=== PATIENT | male | born 1945 | race Hispanic/Latino ===

== ENCOUNTER 2018-05-14 10:39 | Outpatient (CLI) | payer MEDICARE ==
[2018-05-14 12:28] LABS: #Eosinphils 0.1 thou/uL (0.0-0.7); #Lymphocytes 1.4 thou/uL (1.20-3.40); #Monocytes 0.5 thou/uL (0.11-0.59); #Neutrophils 5.8 thou/uL (1.40-6.50); %Eosinophils 1.5 % (0.0-10.0); %Lymphocytes 17.6 % (21.0-51.0); %Monocytes 6.9 % (0.0-10.0); %Neutrophils 73.9 % (42.0-75.0); Hemoglobin 11.8 g/dL (14.0-18.0); Mean Corpuscular HGB CONC 34.8 g/dL (32.0-36.0); Mean Corpuscular Hemoglobin 35.2 pg (27.0-31.0); Mean Platelet Volume 8.3 fL (7.4-10.4); Platelet Count 251 thou/uL (130-400); RBC Distribution Width 11.9 % (11.5-14.5); Red Blood Cell (RBC) Count 3.36 mill/uL (4.70-6.10); White Blood Cell (WBC) Count 7.8 thou/uL (4.8-10.8)
[2018-05-14 12:35] LABS: Prothrombin Time 13.3 SEC (12.0-14.7)
[2018-05-14 12:36] LABS: PTT 35.4 SEC (22.9-36.1)
[2018-05-14 12:51] LABS: ALT (SGPT) 9 U/L (8-55); AST (SGOT) 8 U/L (5-34); Albumin 3.9 g/dL (3.4-4.8); Alkaline Phosphatase 98 U/L (40-150); Anion Gap 16 mmol/L (10-20); BUN (Urea Nitrogen) 53 mg/dL (8.4-25.7); Bilirubin, Total 0.4 mg/dL (0.2-1.2); Calc. Creatinine Clearance 0 mL/min (70-130); Calcium 9.8 mg/dL (7.8-10.44); Carbon Dioxide 26 mmol/L (23-31); Chloride 99 mmol/L (98-107); Estimated GFR-MDRD 6; Globulin 3.2 g/dL (2.4-3.5); Glucose 267 mg/dL (83-110); Potassium 4.2 mmol/L (3.5-5.1); Protein, Total 7.1 g/dL (5.8-8.1); Sodium 137 mmol/L (136-145)
== END 2018-05-14 10:40 | disposition home or self-care (01) ==
LOC: LABBT 10:39
PROVIDERS: ATTEND Internal Medicine Cardiovascular Disease
DX: Z01.812 Encounter for preprocedural laboratory examination (principal); R94.39 Abnormal result of other cardiovascular function study
CPT/HCPCS: 80053; 85025; 85610; 85730

== ENCOUNTER 2018-05-17 06:46 | Day surgery (SDC) | payer MEDICARE ==
[2018-05-14 10:58] VITALS: BMI 32.0
[2018-05-17 08:34] LABS: Cardiac Risk 2.3 (Less than 4.5)
[2018-05-17] MEDS ORDERED: Lidocaine 1% (PF) 30 ML VIAL ONE ×2 (09:35)
[2018-05-17] MEDS ORDERED: Iopamidol 370 76% 100 ML VIAL ONE (09:46)
[2018-05-17] MEDS ORDERED: Fentanyl 100 MCG/2 ML VIAL ONE (11:06)
[2018-05-17] MEDS ORDERED: Midazolam HCl 2 mg/2 ml Vial ONE (11:06)
[2018-05-17] MEDS ORDERED: hydrALAZINE 20 MG/ML VIAL ONE (11:26)
== END 2018-05-17 15:30 | disposition home or self-care (01) ==
LOC: CCL 06:46
PROVIDERS: ATTEND Internal Medicine Cardiovascular Disease
PROC: 4A023N7 Measurement of Cardiac Sampling and Pressure, Left Heart, Percutaneous Approach (ICD-10-PCS; principal; 2018-05-17)
PROC: B2111ZZ Fluoroscopy of Multiple Coronary Arteries using Low Osmolar Contrast (ICD-10-PCS; 2018-05-17)
DX: R94.39 Abnormal result of other cardiovascular function study (principal); R06.02 Shortness of breath; I12.0 Hypertensive chronic kidney disease with stage 5 chronic kidney disease or end stage renal disease; E11.22 Type 2 diabetes mellitus with diabetic chronic kidney disease; N18.6 End stage renal disease; Z86.73 Personal history of transient ischemic attack (TIA), and cerebral infarction without residual deficits; Z79.4 Long term (current) use of insulin; Z79.899 Other long term (current) drug therapy; Z99.2 Dependence on renal dialysis
CPT/HCPCS: 36415; 80061; 93458; 99152; C1769; J0360; J1644; J2001; J2250; J3010

== ENCOUNTER 2018-05-21 11:23 | Observation (INO) | payer MEDICARE ==
[2018-05-21 12:06] LABS: #Eosinphils 0.2 thou/uL (0.0-0.7); #Lymphocytes 0.9 thou/uL (1.20-3.40); #Monocytes 0.5 thou/uL (0.11-0.59); #Neutrophils 4.8 thou/uL (1.40-6.50); %Basophils 0.2 % (0.0-1.0); %Eosinophils 3.2 % (0.0-10.0); %Lymphocytes 14.2 % (21.0-51.0); %Monocytes 7.1 % (0.0-10.0); %Neutrophils 75.3 % (42.0-75.0); Hemoglobin 9.9 g/dL (14.0-18.0); Mean Corpuscular HGB CONC 34.3 g/dL (32.0-36.0); Mean Corpuscular Hemoglobin 34.9 pg (27.0-31.0); Platelet Count 229 thou/uL (130-400); RBC Distribution Width 11.9 % (11.5-14.5); Red Blood Cell (RBC) Count 2.83 mill/uL (4.70-6.10); White Blood Cell (WBC) Count 6.4 thou/uL (4.8-10.8)
[2018-05-21 12:21] LABS: ALT (SGPT) Less than 7 U/L (8-55); AST (SGOT) 11 U/L (5-34); Albumin 3.5 g/dL (3.4-4.8); Alkaline Phosphatase 78 U/L (40-150); Anion Gap 16 mmol/L (10-20); BUN (Urea Nitrogen) 65 mg/dL (8.4-25.7); Bilirubin, Total 0.3 mg/dL (0.2-1.2); Calc. Creatinine Clearance 0 mL/min (70-130); Calcium 8.8 mg/dL (7.8-10.44); Carbon Dioxide 21 mmol/L (23-31); Chloride 105 mmol/L (98-107); Estimated GFR-MDRD 5; Globulin 2.9 g/dL (2.4-3.5); Glucose 238 mg/dL (83-110); Potassium 4.7 mmol/L (3.5-5.1); Protein, Total 6.4 g/dL (5.8-8.1); Sodium 137 mmol/L (136-145)
[2018-05-21 13:49] LABS: HBSAg Index 0.19 S/CO (0-0.99); Hep B Surf Ag Non-Reactive S/CO (NonReactive)
[2018-05-21 17:36] VITALS: BMI 32.6
[2018-05-21] MEDS ORDERED: HumaLOG 300 UNITS/3 ML VIAL SC PRN (18:16)
[2018-05-21] MEDS ORDERED: Dextrose 5% in Water 1,000 ML IV PRN (18:16)
[2018-05-21] MEDS ORDERED: Dextrose 50% Abboject 50 ML SYRINGE SLOW IVP PRN (18:16)
[2018-05-21] MEDS ORDERED: Acetaminophen 500 MG TAB PO PRN (18:18)
[2018-05-21] MEDS ORDERED: Enoxaparin Sodium 30 MG/0.3 ML SYRINGE SC SCH (21:00)
[2018-05-21] MEDS: Cephalexin 250 MG CAP PO SCH (21:38)
--- NOTE | 2018-05-22 03:04 | HP ---
The patient's PCP is myself, Dr. Micha Morales. CHIEF COMPLAINT: Fatigue. HISTORY OF PRESENT ILLNESS: The patient states that he has missed nearly a week of dialysis. He has missed the last Sunday, last Sunday and this Sunday. He reports that he had a cardiac catheterization outside of [facility]. He gets a lot of his care still from the [facility] and he missed his dialysis today. However, speaking with family members at bedside including great niece and cousin I believe, they report that he has showed more and more disdaining for dialysis and is possible skipping dialysis because he does not want to continue. However, he refuses to have code status, living will, or advance directive talks with the great niece. The patient still wants to be full code at bedside today. He has no acute complaints other than redness and warmth to the left AV fistula access and the arm. The patient has been followed by Dr. Bolanos, Nephrology and received 3 hours of dialysis today. He reports that the patient's dialysis center will be closed and was requested for observation and admission to continue dialysis on schedule and catch the patient up. 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 The patient is followed by Dr. Bolanos, Nephrology and Dr. Stafford of Urology, and ancillary [facility] physicians. The patient had a left arm AV fistula placed by Dr. Marr on 08/29/2016. The patient is status post appendectomy and tonsillectomy. HOME MEDICATIONS: Listed include, 1. Diltiazem 180 mg extended release once daily. 2. Split-Mix 70/30, 40 units b.i.d. prior to meal. 3. Sliding scale insulin is not currently used. SOCIAL HISTORY: The patient is a former smoker, currently quit. Does not have a spouse or children, currently living by self. REVIEW OF SYSTEMS: The patient denies fevers or chills, positive fatigue, mild weight gain with fluid retention. No chest pain, no shortness of breath, no wheezes, no cough. No abdominal pain. No abdominal distension. No diarrhea, no constipation. No nausea, no vomiting. No headaches. No syncopal episodes. No confusion. Positive redness to arm, possible rash over the AV fistula site, soreness to groin where catheterization was performed last Sunday. The patient denies overt bruising. On review of vital signs, on arrival to the floor, temperature of 97.6, pulse of 77, respiratory rate of 20, oxygen saturation of 100% on room air, blood pressure of 142/68. LABORATORY DATA: Laboratory work includes white blood cell count of 6.4, hemoglobin of 9.9, platelet count of 229, neutrophils of 75%, MCV of 102, sed rate of 54, CRP elevated at 2, serum albumin of 3.5, ALT of less than 7, AST of 11, calcium of 8.8, glucose of 238, creatinine of 11.25, BUN of 65, CO2 of 21, chloride of 105, potassium of 4.7, sodium of 137. Serology, hepatitis B surface antigen is nonreactive. PHYSICAL EXAMINATION: GENERAL: The patient is alert and oriented, in no acute distress. HEENT: Head is normocephalic, atraumatic. Extraocular movements are intact. Sclerae white. Oral mucosa is moist. NECK: Supple. No goiter present. HEART: Slightly tachycardic. Slight systolic murmur is auscultated. No rubs or wheezes. LUNGS: Bilateral clear otherwise to auscultation. ABDOMEN: Soft, nontender, positive bowel sounds throughout. NEUROLOGIC: The patient is alert and oriented x3. No focal deficits. Speech is normal. Right AV fistula has positive thrill and bruits; however, is somewhat erythematous over AC fossa with pallor and mild induration without fluctuance or exudates. ASSESSMENT AND PLAN: Endstage renal disease on hemodialysis, diastolic congestive heart failure, diabetes type 2 with retinopathy, anemia of chronic disease with possible element of B vitamin deficiency. Last echo reviewed, 2017, ejection fraction 60% to 65%, grade 1 diastolic dysfunction under the purview of Dr. Zaman. We will follow up on blood cultures once available, may cover the patient with Keflex given elevated CRP and physical findings of possible _graphitis_ until no known bacteremia is present. We will continue the patient's 70/30 Split-Mix b.i.d. with sliding scale insulin checks with likelihood for the patient to undergo dialysis again tomorrow and return to standard dialysis schedule; however, we will default Nephrology consult to Dr. Bolanos, I believe Dr. Wisdom is covering for him this evening. We will attempt to have further discussions about the patient 's advance directives and code status. Per family's indication, he may be ready to talk about end of life care. However, at this point, the patient overtly states he is full code and wants to continue with dialysis. Continuing the patient's Cardizem, we will cover for deep vein thrombosis prophylaxis. Job ID: [id number] MTDD
[2018-05-22 04:08] LABS: #Eosinphils 0.2 thou/uL (0.0-0.7); #Lymphocytes 1.2 thou/uL (1.20-3.40); #Monocytes 0.7 thou/uL (0.11-0.59); #Neutrophils 4.7 thou/uL (1.40-6.50); %Basophils 0.3 % (0.0-1.0); %Eosinophils 3.5 % (0.0-10.0); %Lymphocytes 17.1 % (21.0-51.0); %Monocytes 9.6 % (0.0-10.0); %Neutrophils 69.5 % (42.0-75.0); Hemoglobin 9.9 g/dL (14.0-18.0); Mean Corpuscular HGB CONC 34.5 g/dL (32.0-36.0); Mean Corpuscular Hemoglobin 34.7 pg (27.0-31.0); Mean Platelet Volume 7.9 fL (7.4-10.4); Platelet Count 222 thou/uL (130-400); RBC Distribution Width 11.9 % (11.5-14.5); Red Blood Cell (RBC) Count 2.86 mill/uL (4.70-6.10); White Blood Cell (WBC) Count 6.8 thou/uL (4.8-10.8)
[2018-05-22 04:29] LABS: ALT (SGPT) Less than 7 U/L (8-55); AST (SGOT) 10 U/L (5-34); Albumin 3.5 g/dL (3.4-4.8); Alkaline Phosphatase 79 U/L (40-150); Anion Gap 14 mmol/L (10-20); BUN (Urea Nitrogen) 40 mg/dL (8.4-25.7); Bilirubin, Total 0.3 mg/dL (0.2-1.2); Calc. Creatinine Clearance 12 mL/min (70-130); Calcium 8.8 mg/dL (7.8-10.44); Carbon Dioxide 26 mmol/L (23-31); Chloride 101 mmol/L (98-107); Estimated GFR-MDRD 7; Globulin 2.8 g/dL (2.4-3.5); Glucose 92 mg/dL (83-110); Phosphorus 5.1 mg/dL (2.3-4.7); Potassium 3.6 mmol/L (3.5-5.1); Protein, Total 6.3 g/dL (5.8-8.1); Sodium 137 mmol/L (136-145)
[2018-05-22] MEDS ORDERED: Insulin NPH/Reg Insulin Hm 300 UNITS/3 ML VIAL SC SCH (07:30)
[2018-05-22] MEDS: Cephalexin 250 MG CAP PO SCH (08:38)
[2018-05-22 13:14] VITALS: BP 129/62
[2018-05-22 13:46] VITALS: TEMP 98.2
--- NOTE | 2018-05-23 13:23 | DIS ---
DATE OF ADMISSION: 05/21/2018 DATE OF DISCHARGE: 05/22/2018 PRIMARY CARE PHYSICIAN: Micha Morales MD CHIEF COMPLAINT: Fatigue and volume overload. HISTORY OF PRESENT ILLNESS: The patient missed dialysis from last Sunday through his scheduled time this Sunday. He apparently per family reports missed Sunday week ago as well; however, the patient denies this. Family at bedside have much different stories stating that he is tired of dialysis and routinely does not go since about , very intermittent. The patient states he has only missed three times since , two of which being in the last week. He had a cardiac procedure done and did not feel up to going to dialysis. He states he feels fine; however, was urged from Nephrology to go to the emergency department and get emergent hemodialysis to catch up on some mild signs of volume overload. The patient received [id number] daily dialysis on the day of admission and today. The patient's electrolytes were stable. He had some element of possible early graftitis to left AV fistula site; however, this was much improved and resolved following two doses of high-dose keflex. The patient's blood sugars were slightly elevated, which were brought down with sliding scale insulin. Prior to discharge, the patient was maintained on NPH on an outpatient basis. DISCHARGE DIAGNOSES: Include, 1. End-stage renal disease, on hemodialysis. 2. Volume overload resolved. 3. Graftitis, resolved. 4. Diabetes type 2. 5. Macrocytic anemia of chronic disease. DISCHARGE MEDICATIONS: Include, 1. Insulin 14 units b.i.d. 70/30 split mix. 2. Cardizem 180 mg. The patient is also largely noncompliant. [facility] He has not been compliant with statins, aspirin, beta-marzena, or JAYDEN inhibitors in the past. Does not have much interest for them currently. He is not interested in talking about advance directive or power of research attorney at this point in time, despite the urgings of his family members. He states he wishes to continue dialysis. DISCHARGE DIET: Renal. DISCHARGE ACTIVITY: As tolerated. FOLLOWUP: 1. With myself, Dr. Micha Morales, within one week of discharge. 2. Follow up with Dr. Bolanos, Nephrology, for continuation of dialysis every Sunday, Sunday, or Sunday. The patient to follow up with dialysis on Sunday as planned. DISCHARGE CONDITION: Good. Job ID: [id number]
[2018-05-23] MEDS ORDERED: Heparin 10,000 UNITS/ 10 ML VIAL ONE (14:55)
--- NOTE | 2018-05-25 12:27 | EKG ---
Test Reason : Blood Pressure : / mmHG Vent. Rate : 076 BPM Atrial Rate : 076 BPM P-R Int : 180 ms QRS Dur : 100 ms QT Int : 414 ms P-R-T Axes : 023 -34 068 degrees QTc Int : 465 ms Normal sinus rhythm Left axis deviation Pulmonary disease pattern Incomplete right bundle branch block Minimal voltage criteria for LVH, may be normal variant Abnormal ECG Confirmed by JACOB PILLAI ([id number]), newspaper copy editor JUAN DAVID BARRERA ([id number]) on 05/25/2018 12:27:13 PM Referred By: Confirmed By:JACOB PILLAI
== END 2018-05-22 15:10 | disposition home or self-care (01) ==
LOC: ERS 11:23 → ERHOLD 14:32 → 2SW 17:25
PROVIDERS: ADMIT Family Medicine; ATTEND Family Medicine
DX: I13.0 Hypertensive heart and chronic kidney disease with heart failure and stage 1 through stage 4 chronic kidney disease, or unspecified chronic kidney disease (principal); E11.22 Type 2 diabetes mellitus with diabetic chronic kidney disease; N18.6 End stage renal disease; I50.30 Unspecified diastolic (congestive) heart failure; D63.1 Anemia in chronic kidney disease; T82.7XXA Infection and inflammatory reaction due to other cardiac and vascular devices, implants and grafts, initial encounter; F43.10 Post-traumatic stress disorder, unspecified; I73.9 Peripheral vascular disease, unspecified; M51.36 Other intervertebral disc degeneration, lumbar region; E11.319 Type 2 diabetes mellitus with unspecified diabetic retinopathy without macular edema; E87.70 Fluid overload, unspecified; Z87.891 Personal history of nicotine dependence; Z79.4 Long term (current) use of insulin; Z79.899 Other long term (current) drug therapy; Z91.14 Patient's other noncompliance with medication regimen; Z91.15 Patient's noncompliance with renal dialysis; Z99.2 Dependence on renal dialysis
CPT/HCPCS: 80053 ×2; 82962 ×2; 83735; 84100; 85025 ×2; 85652; 86140; 87040; 87340; 93005; 99285; G0378 ×2; 36415; 36416; 90935; G0257; J1644; J1650

== ENCOUNTER 2020-03-01 15:33 | Observation (INO) | payer MEDICARE, OTHER ==
--- NOTE | 2020-03-01 16:14 | RAD ---
Chest one view HISTORY: Weakness. Dyspnea. COMPARISON: 08/29/2016. FINDINGS: Cardiac silhouette is magnified and enlarged. Pulmonary vasculature are within normal limit s. Mediastinum is midline. No lobar consolidation or evidence of pneumothorax. IMPRESSION : Cardiomegaly likely related to chronic anemia. No active cardiopulmonary abnormalities are otherwise demonstrated.
[2020-03-01 16:29] LABS: #Eosinphils 0.2 thou/uL (0.0-0.7); #Lymphocytes 0.8 thou/uL (1.20-3.40); #Monocytes 0.7 thou/uL (0.11-0.59); #Neutrophils 8.3 thou/uL (1.40-6.50); %Basophils 0.3 % (0.0-1.0); %Eosinophils 1.9 % (0.0-10.0); %Lymphocytes 7.7 % (21.0-51.0); %Monocytes 6.8 % (0.0-10.0); %Neutrophils 83.3 % (42.0-75.0); Hemoglobin 9.9 g/dL (14.0-18.0); Mean Corpuscular HGB CONC 33.8 g/dL (32.0-36.0); Mean Corpuscular Hemoglobin 33.9 pg (27.0-31.0); Mean Platelet Volume 8.3 fL (7.4-10.4); Platelet Count 186 thou/uL (130-400); RBC Distribution Width 14.3 % (11.5-14.5); Red Blood Cell (RBC) Count 2.92 mill/uL (4.70-6.10); White Blood Cell (WBC) Count 9.9 thou/uL (4.8-10.8)
[2020-03-01 16:32] LABS: ALT (SGPT) 10 U/L (8-55); AST (SGOT) 10 U/L (5-34); Albumin 3.7 g/dL (3.4-4.8); Alkaline Phosphatase 91 U/L (40-110); Anion Gap 21 mmol/L (10-20); BUN (Urea Nitrogen) 79 mg/dL (8.4-25.7); Bilirubin, Total 0.3 mg/dL (0.2-1.2); Calc. Creatinine Clearance 0 mL/min (70-130); Calcium 8.8 mg/dL (7.8-10.44); Carbon Dioxide 19 mmol/L (23-31); Chloride 103 mmol/L (98-107); Estimated GFR-MDRD 3; Globulin 2.7 g/dL (2.4-3.5); Glucose 161 mg/dL (83-110); Potassium 5.4 mmol/L (3.5-5.1); Protein, Total 6.4 g/dL (5.8-8.1); Sodium 138 mmol/L (136-145)
[2020-03-01 18:00] LABS: CKMB 5.3 ng/mL (0-6.6)
--- NOTE | 2020-03-01 19:38 | PDOC.FPRHP ---
- History of Present Illness Chief Complaint: Generalized Weakness History of Present Illness: This is a 74 y/o M with PMHx of ESRD TTHS, HTN, DMII who presents today with generalized weakness that began this weekend. Pt states that he has been feeling weak and fatigued and states that he is unsure why. He missed dialysis on Sunday due to feeling this way. No c/o of CP/SOB, facial droop, one side of his body with numbness/tingling. States that he does not have a regular PCP that he follows up with. He had no other complaints at this time. - Allergies/Adverse Reactions Allergies Allergy/AdvReac Type Severity Reaction Status Date / Time No Known Allergies Allergy Verified 03/01/20 23:27 - Home Medications Medication Instructions Recorded Confirmed Type Insulin NPH Hum/Reg Insulin HM 14 unit SQ BID PRN 05/22/18 03/01/20 History [Humulin 70-30 Vial] Aspirin/Calcium Carbonate/Mag 325 mg PO BID 03/01/20 03/01/20 History [Buffered Aspirin 325 mg Tb] hydrALAZINE HCl [Hydralazine HCl] 50 mg PO BID 03/01/20 03/01/20 History traMADol HCl [Tramadol HCl] 50 mg PO BID 03/01/20 03/01/20 History - History PMHx: -ESRD, sees Dr. Teixeira -HTN -DMII PSHx: -cataract surgery L eye -appendectomy FHx: -mother: DM Social: currently smokes 1 PPD since 15 years of age, etoh quit 6 years ago, no drug use - Review of Systems General: denies: fever/chills, weight/appetite/sleep changes, night sweats Eyes: denies: eye pain, vision changes Respiratory: denies: cough, congestion, shortness of breath Cardiovascular: denies: chest pain, palpitation, edema Gastrointestinal: denies: nausea, vomiting, diarrhea, constipation, abdominal pain Genitourinary: denies: incontinence, dysuria, polyuria Skin: denies: rashes, lesions Musculoskeletal: denies: pain, tenderness, stiffness Neurological: reports: weakness. denies: numbness, syncope, seizure Psychological: denies: anxiety, depression - Vital signs BP: 146/61, MAP: 89, Pulse: 77, Resp: 19, Temp: 98.3 (Oral), Pain: 0, O2 sat: 98 on (Room Air), Time: 03/01/2020 15:44. - Physical Exam Constitutional: NAD, awake, alert and oriented, well developed HEENT: normocephalic and atraumatic, PERRLA, grossly normal vision, grossly normal hearing Neck: supple Heart: RRR, normal S1/S2, no murmurs/rubs/gallops Lungs: CTAB, no respiratory distress, good air movement, other (wheezing throughout) Abdomen: soft, non-tender, bowel sounds present, no masses/distention Musculoskeletal: normal structure, normal tone Neurological: no focal deficit, CN II-XII intact, normal sensation Skin: no rash/lesions, good turgor, capillary refill <2 seconds -Skin: 1+ pitting edema bilaterally Psychiatric: normal mood and affect, good judgment and insight, intact recent and remote memory FMR H&P: Results - Labs Result Diagrams: 03/01/20 16:04 03/01/20 16:04 Lab results: WBC 9.9 thou/uL (4.8-10.8) 03/01/20 16:04 Hgb 9.9 g/dL (14.0-18.0) L 03/01/20 16:04 Hct 29.3 % (42.0-52.0) L 03/01/20 16:04 MCV 100.0 fL (78.0-98.0) H 03/01/20 16:04 Plt Count 186 thou/uL (130-400) 03/01/20 16:04 Neutrophils % 83.3 % (42.0-75.0) H 03/01/20 16:04 Sodium 138 mmol/L (136-145) 03/01/20 16:04 Potassium 5.4 mmol/L (3.5-5.1) H 03/01/20 16:04 Chloride 103 mmol/L (98-107) 03/01/20 16:04 Carbon Dioxide 19 mmol/L (23-31) L 03/01/20 16:04 BUN 79 mg/dL (8.4-25.7) H 03/01/20 16:04 Creatinine 14.18 mg/dL (0.7-1.3) H 03/01/20 16:04 Glucose 161 mg/dL (83-110) H 03/01/20 16:04 Lactic Acid 1.3 mmol/L (0.5-2.2) 03/01/20 16:23 Calcium 8.8 mg/dL (7.8-10.44) 03/01/20 16:04 Total Bilirubin 0.3 mg/dL (0.2-1.2) 03/01/20 16:04 AST 10 U/L (5-34) 03/01/20 16:04 ALT 10 U/L (8-55) 03/01/20 16:04 Alkaline Phosphatase 91 U/L (40-110) 03/01/20 16:04 CK-MB (CK-2) 5.3 ng/mL (0-6.6) 03/01/20 16:04 B-Natriuretic Peptide 173.5 pg/mL (0-100) H 03/01/20 16:04 Serum Total Protein 6.4 g/dL (5.8-8.1) 03/01/20 16:04 Albumin 3.7 g/dL (3.4-4.8) 03/01/20 16:04 - EKG Interpretation EKG: peaked T waves in V2, 4, 5, 6 FMR H&P: A/P - Problem List (1) High anion gap metabolic acidosis Current Visit: Yes Status: Acute Code(s): E87.2 - ACIDOSIS (2) ESRD (end stage renal disease) on dialysis Current Visit: No Status: Acute Code(s): N18.6 - END STAGE RENAL DISEASE; Z99.2 - DEPENDENCE ON RENAL DIALYSIS (3) Anemia Current Visit: No Status: Chronic Code(s): D64.9 - ANEMIA, UNSPECIFIED (4) DM2 (diabetes mellitus, type 2) Current Visit: No Status: Chronic (5) HTN (hypertension) Current Visit: No Status: Chronic Code(s): I10 - ESSENTIAL (PRIMARY) HYPERTENSION - Plan This is a 74 y/o M with PMHx of ESRD TTHS, HTN, DMII who presents with generalized weakness. ## Generalized Weakness Most likely 2/2 electrolyte abnormality and AG Metabolic Acidosis 2/2 Uremia -AG 16, BUN 79, K 5.4 -pt currently having dialysis -repeat labs in AM ## ESRD T/TH/S -BUN 79 -under care of Dr. Teixeira -dialysis today ## Indeterminate Trop -trop 0.053 -will trend -admitted to telemetry ## Hyperkalemia -K 5.4 with EKG changes, not symptomatic -see plan as above ## Anion Gap Metabolic Acidosis -AG 16, BUN 79 -see plan as above ## Anemia Chronic Disease -Hgb: 9.9 -macrocytic in nature MCV 100 -vitamin B12, folate -continue to monitor Chronic Conditions: -HTN: home meds -DM: home meds, SSI -Tobacco abuse: cessation encouraged CODE: DNAR VTE: none DIET: Renal PCP: CC Dispo: admitted to observation, telemetry. FMR H&P: Upper Level - Plan Date/Time: 03/01/201937 I, VANESSA RAMIREZ PGY3, have evaluated this patient and agree with findings/plan as outlined by tech intern resident. Pertinent changes/additions are listed here. 74yo M with pmh of ESRD on HD (T, R, S) presents to ED for weakness since he missed his Sunday dialysis appointment. Pt was unable to provide details about his medical history including medical problems or current medications. On exam he is hypertensive 130/55 and is resting comfortably getting dialysis. Cardiopulmonary exam wnl, GI exam wnl. A/P Anion Gap Metabolic Acidosis 2/2 Uremia A- stable, likely 2/2 missing dialysis. BUN on admission 80, GAP is 16. P- pt getting dialysis now -Nephro (Puneet) consulted from ED -repeat BMP in AM Hyperkalemia A- stable, Potassium 5.4, EKG shows peaked Ts P- continue dialysis, recheck in AM indeterminate trop A- pt is asymptomatic and stable. trop is .05 (up from baseline .02) P- will trend trops DM2 A- pt is unsure of home medications, he thinks he takes insulin periodically P- will get A1C -SSI, accuchecks, CC diet HTN, ESRD -continue home regimen CODE: DNAR IVF: SL Diet: renal, high protein Dispo: admit to telemetry, obs. Expected LOS < 48 hours. Addendum - Attending - Attending Attestation Date/Time: 03/02/20 0910 I personally evaluated the patient and discussed the management with the team on day of admission. I agree with the History, Examination, Assessment and Plan documented above with any addition or exceptions noted below. Besides feeling fatigued he has no complaints and says he has just answered the same questions over and over again. Relatively unremarkable exam. F/u in the morning post dialysis.
[2020-03-01] MEDS ORDERED: Dextrose 5% in Water 1,000 ML IV PRN (20:40)
[2020-03-01] MEDS ORDERED: Insulin Regular 300 UNITS/3 ML VIAL SC PRN (20:40)
[2020-03-01] MEDS ORDERED: Acetaminophen 325 MG TAB PO PRN (20:40)
[2020-03-01] MEDS ORDERED: Dextrose 50% Abboject 50 ML SYRINGE SLOW IVP PRN (20:40)
[2020-03-01] MEDS ORDERED: EPOETIN ALFA-EPBX (ESRD) 4,000 UNIT/ML VIAL SC SCH (21:00)
[2020-03-01 22:48] VITALS: BMI 30.2
[2020-03-01 22:53] LABS: Troponin I 0.086 ng/mL (< 0.028)
--- NOTE | 2020-03-02 02:34 | CON ---
DATE OF CONSULTATION: HISTORY OF PRESENT ILLNESS: Mr. Carranza is a 74-year-old male with ESRD from presumed diabetic nephropathy, currently on maintenance hemodialysis and was admitted for generalized weakness. He complained of generalized weakness, he is nonspecific. There was no associated chest pain or shortness of breath with this. The patient also denies any fever or chills. We are being consulted for his management of his ESRD as well as for his maintenance hemodialysis. REVIEW OF SYSTEMS: Positive for generalized malaise. No nausea. No vomiting. Appetite decreased. Energy level is decreased. No gross hematuria. No dysuria. No urinary frequency. No productive cough. No fever or chills. No abdominal pain. No hematochezia. No melena. MEDICATIONS: 1. Diltiazem 180 mg tablet daily. 2. NPH insulin 14 units subcu b.i.d. PAST MEDICAL HISTORY: ESRD from diabetic nephropathy, type 2 diabetes mellitus, and hypertension. PAST SURGICAL HISTORY: Includes status post appendectomy, status post AV fistula placement, status post cuffed hemodialysis catheter placement, status post cardiac catheterization-normal findings with a normal EF. SOCIAL HISTORY: The patient lives alone. He still smokes several cigarettes a day. No alcohol use. No IV drug abuse. Sedentary lifestyle. FAMILY HISTORY: Positive for ESRD. ALLERGIES: NONE. TRAUMA: None. IMMUNIZATIONS: Up-to-date. HOSPITALIZATIONS: Please see past medical history. PHYSICAL EXAMINATION: VITAL SIGNS: Blood pressure 146/61, heart rate 77, respiratory rate 19, temperature 98.3, and O2 saturation 98% on room air. GENERAL: The patient is sleepy, but arousable and comfortable, obese. SKIN: Adequate turgor. HEENT: He has a slightly pale conjunctivae. Anicteric sclerae. NECK: No neck mass. No carotid bruits. No JVD. CHEST: No deformities. LUNGS: Clear breath sounds. No wheezing. No crackles. HEART: Normal sinus rhythm. No murmur. No gallops. No rubs. ABDOMEN: Globular, soft, and nontender. No masses. EXTREMITIES: No edema. No deformities. LABORATORY DATA: Laboratories of March 01, 2020; white count 9.9, hemoglobin 9.9. Sodium 138, potassium 5.4, chloride 103, carbon dioxide 19, BUN 79, creatinine 14.1, glucose 161, calcium 8.8. AST 10, ALT 10, troponin I 0.053. Chest x-ray shows no evidence of CHF, but there is mild cardiomegaly. ASSESSMENT AND PLAN: 1. Anemia. Resume Epogen 7500 units subcu every week. 2. Generalized weakness, nonspecific. I do not think the patient is uremic. He is currently undergoing hemodialysis since he missed dialysis last Sunday. We are doing a 3-hour hemodialysis with fluid removal as tolerated. 3. Generalized weakness. Check TSH and cortisol level. As previously mentioned, we will resume his weekly Epogen. 4. Review of the last Kt/V suggests he is adequately dialyzed with the current dialysis regimen. Job ID: [id number]
[2020-03-02 04:50] VITALS: TEMP 97.5
--- NOTE | 2020-03-02 05:54 | PDOC.FM ---
- Subjective Subjective: Dialysis last night. Reports feeling sleepy this morning, unsure if his weakness has improved since dialysis. Reports that he has not been out of bed to assess his weakness. Denies chest pain, SOB, n/v. Complaining about his food options. - Objective Vital Signs & Weight: Vital Signs (12 hours) Temp Pulse Resp BP BP Pulse Ox 03/02/20 04:29 97.5 F L 65 17 149/67 H 100 03/01/20 21:30 96.1 F L 71 20 152/72 H 100 Weight Weight 93.032 kg Result Diagrams: 03/01/20 16:04 03/01/20 16:04 Phys Exam - Physical Examination Constitutional: NAD Respiratory: no wheezing, no rales, no rhonchi, clear to auscultation bilateral Cardiovascular: RRR, no significant murmur, no rub Gastrointestinal: soft, non-tender, no distention, positive bowel sounds Musculoskeletal: no edema Neurological: non-focal, normal sensation, moves all 4 limbs Psychiatric: normal affect Dx/Plan - Plan Plan: AG Metabolic Acidosis likely 2/2 Uremia -AG 16, BUN 79, K 5.4 -pt underwent dialysis last night -labs pending -likely dc home today pending lab results ESRD T/TH/S -under care of Dr. Teixeira -dialysis yesterday, labs pending Indeterminate Trop -trop 0.053 > 0.086 > pending -will trend -admitted to telemetry Hyperkalemia -K 5.4 > ? -labs pending Anemia Chronic Disease -Hgb: 9.9 -macrocytic in nature MCV 100 -vitamin B12, folate pending -continue to monitor, labs pending HTN -home meds DM -home meds, SSI Tobacco abuse -cessation encouraged CODE: DNAR VTE: none DIET: Renal PCP: CC Dispo: likely dc home today pending lab results.
--- NOTE | 2020-03-02 09:07 | PRG ---
DATE OF SERVICE: 03/02/2020 SUBJECTIVE: Mr. Carranza is a 74-year-old male with ESRD and followed up by the Renal Service for his maintenance hemodialysis. He underwent an emergent hemodialysis yesterday due to his elevated potassium 5.4. He is now scheduled for his regular dialysis. He refused to do his full treatment. We will schedule him for 2.5 hour dialysis treatment. He voices no new complaints. He tells me he is feeling a little stronger. He denies any overt chest pain or shortness of breath. OBJECTIVE: VITAL SIGNS: Blood pressure 176/72, heart rate 64, respiratory rate 16, temperature 97.5, O2 saturations 100%. GENERAL: The patient is awake, alert, comfortable, not in distress. SKIN: Adequate turgor. HEENT: He has slightly pale conjunctivae. Anicteric sclerae. No neck mass. No carotid bruits. No JVD. CHEST: No deformities. LUNGS: Clear breath sounds. No wheezing. No crackles. HEART: Normal sinus rhythm. No murmur. No gallops. No rubs. ABDOMEN: Globular, soft, nontender. No masses. EXTREMITIES: No edema. No deformities. MEDICATIONS: Medications of March 02, 2020, reviewed. LABORATORY DATA: Laboratories of March 01, 2020; white count 9.9, hemoglobin 9.9. Troponin I 0.086. BNP is 173.5. Hemoglobin 9.9. ASSESSMENT/PLAN: 1. Anemia-Epogen 7500 units subcu q.week has been started. 2. End-stage renal disease, stable. Continue Sunday, , Sunday hemodialysis regimen with this patient. We will do dialysis with fluid removal only as tolerated. 3. Generalized weakness-clinically much improved. Job ID: [id number] [facility]
[2020-03-02 09:30] LABS: #Eosinphils 0.2 thou/uL (0.0-0.7); #Lymphocytes 1.3 thou/uL (1.20-3.40); #Monocytes 0.5 thou/uL (0.11-0.59); #Neutrophils 4.7 thou/uL (1.40-6.50); %Basophils 0.6 % (0.0-1.0); %Eosinophils 2.9 % (0.0-10.0); %Lymphocytes 18.8 % (21.0-51.0); %Neutrophils 69.7 % (42.0-75.0); Hemoglobin 10.7 g/dL (14.0-18.0); Mean Corpuscular HGB CONC 33.8 g/dL (32.0-36.0); Mean Corpuscular Hemoglobin 34.7 pg (27.0-31.0); Platelet Count 181 thou/uL (130-400); RBC Distribution Width 14.2 % (11.5-14.5); Red Blood Cell (RBC) Count 3.08 mill/uL (4.70-6.10); White Blood Cell (WBC) Count 6.8 thou/uL (4.8-10.8)
[2020-03-02 09:54] LABS: Anion Gap 15 mmol/L (10-20); BUN (Urea Nitrogen) 52 mg/dL (8.4-25.7); Calc. Creatinine Clearance 8 mL/min (70-130); Calcium 8.7 mg/dL (7.8-10.44); Carbon Dioxide 26 mmol/L (23-31); Chloride 103 mmol/L (98-107); Estimated GFR-MDRD 5; Glucose 114 mg/dL (83-110); Potassium 4.5 mmol/L (3.5-5.1); Sodium 139 mmol/L (136-145)
[2020-03-02 10:00] LABS: Troponin I 0.091 ng/mL (< 0.028)
[2020-03-02 10:22] LABS: Thyroid Stimulating Hormone 1.8853 uIU/mL (0.35-4.94)
--- NOTE | 2020-03-02 11:55 | PRG ---
DATE OF SERVICE: 03/02/2020 Mr. Carranza is a 74-year-old dialysis patient. He was due for dialysis on Sunday, but "did not feel well" and therefore did not attend. He presented fluid overloaded to the ER late yesterday and was admitted for further dialysis, that is where he is now. I explained to Mr. Carranza that it is extremely important that he would not miss dialysis. He, however, seems reluctant to follow medical advice. We will continue to follow with the Nephrology Service until he is discharged. Job ID: [id number]
[2020-03-02 13:21] VITALS: BP 122/83
[2020-03-02 16:41] LABS: SARS-CoV-2 MS2 Positive; SARS-CoV-2 N Gene Negative; SARS-CoV-2 S Gene Negative; SARS-CoV-2 by NAA Not Detected (NotDetected); SARS-CoV-2 orf1ab Negative
--- NOTE | 2020-03-03 00:10 | DIS ---
DATE OF ADMISSION: 03/01/2020 DATE OF DISCHARGE: 03/02/2020 CONSULTS: Nephrology, Dr. Teixeira. PROCEDURES/IMAGIN. Chest x-ray: Cardiac silhouette is enlarged. Pulmonary vasculature within normal limits. Mediastinum is midline. No lobar consolidation or evidence of pneumothorax. 2. Dialysis x2. PRIMARY DIAGNOSIS: Anion gap metabolic acidosis secondary to uremia. SECONDARY DIAGNOSES: 1. End-stage renal disease. 2. Indeterminate troponins. 3. Hyperkalemia. 4. Anemia of chronic disease. DISCHARGE MEDICATIONS: 1. Humulin 70/30, 40 units subcu b.i.d. 2. Tramadol 50 mg b.i.d. 3. Hydralazine 50 mg b.i.d. 4. Aspirin/calcium carbonate/mag 325 mg p.o. b.i.d. DISCONTINUED MEDICATIONS: None. HISTORY OF PRESENT ILLNESS/HOSPITAL COURSE: The patient is a 74-year-old male with past medical history of end-stage renal disease requiring dialysis on Sunday, , and Sunday; hypertension; diabetes mellitus type 2, who presented for generalized weakness after missing his Sunday dialysis treatment. The patient's creatinine on admission was 14.18 and his BUN was 79. He was also noted to be hyperkalemic with a potassium of 5.4. The patient underwent dialysis the evening of admission as well as the next morning. Of note, the patient was also found to have indeterminate troponins of 0.053, 0.086, and 0.091. He denied any chest pain during this time. The elevations were likely due to the lack of dialysis. Dr. Teixeira was consulted during the patient's admission and he recommended that a TSH and cortisol level be obtained and that the patient resume his Epogen 7500 units subcutaneous every week. He also recommended that the patient return to his normal dialysis schedule. TSH and cortisol were drawn during this admission with the cortisol being normal at 10.7 and TSH being normal at 1.8853. DISPOSITION: Stable. DISCHARGE INSTRUCTIONS: Location: Home. Activity: As tolerated. Diet: Renal. Followup: The patient should follow up with his primary care provider at the [facility] in 7 days, follow up with Dr. Teixeira, and resume his dialysis schedule of Sunday, , and Sunday. Job ID: [id number] [facility]
[2020-03-03 15:16] LABS: Hematocrit 29.1 % (37.5-51.0); RBC Folate Test Component 1216 ng/mL (>498)
--- NOTE | 2020-03-06 11:31 | EKG ---
Test Reason : Blood Pressure : / mmHG Vent. Rate : 076 BPM Atrial Rate : 076 BPM P-R Int : 150 ms QRS Dur : 100 ms QT Int : 392 ms P-R-T Axes : 010 -40 060 degrees QTc Int : 441 ms Normal sinus rhythm Left axis deviation Abnormal ECG Confirmed by EDUARDO LUNA, CABRERA Sanchez ([id number]), book editor JUAN DAVID BARRERA ([id number]) on 03/06/2020 11:30:42 AM Referred By: Confirmed By:CABRERA CLARK MD
== END 2020-03-02 15:40 | disposition home or self-care (01) ==
LOC: ERS 15:33 → 2SW 17:29
PROVIDERS: ADMIT Emergency Medicine; ATTEND Family Medicine
DX: I12.0 Hypertensive chronic kidney disease with stage 5 chronic kidney disease or end stage renal disease (principal); E11.22 Type 2 diabetes mellitus with diabetic chronic kidney disease; N18.6 End stage renal disease; D63.1 Anemia in chronic kidney disease; E87.2 Acidosis; E87.5 Hyperkalemia; F17.210 Nicotine dependence, cigarettes, uncomplicated; R79.89 Other specified abnormal findings of blood chemistry; Z79.4 Long term (current) use of insulin; Z79.82 Long term (current) use of aspirin; Z79.899 Other long term (current) drug therapy; Z99.2 Dependence on renal dialysis; Z20.828 Contact with and (suspected) exposure to other viral communicable diseases; Z66 Do not resuscitate
CPT/HCPCS: 36415; 36416; 71045; 80048; 80053; 82533; 82553; 82607; 82747; 83605; 83880; 84443; 84484; 85025; 87635; 90935; 93005; G0257; Q5105; U0003

== ENCOUNTER 2020-03-03 12:00 | Inpatient (IN) | payer MEDICARE, OTHER ==
--- NOTE | 2020-03-03 13:18 | CT ---
CT BRAIN WITHOUT CONTRAST: HISTORY:Fall, headache COMPARISON:01/28/2017 FINDINGS: There are foci of decreased attenuation in the periventricular white matter, consistent with chronic small vessel ischemic disease. Changes of cortical atrophy are again seen. No evidence of acute infarct, hemorrhage, midline shift or abnormal extra-axial fluid collections is seen. The ventricular size is appropriate and the basilar cisterns are patent. The bony calvarium is intact. The visualized paranasal sinuses and mastoid air cells are well aerated. IMPRESSION: No CT evidence of acute intracranial process.
[2020-03-03 13:26] LABS: #Eosinphils 0.1 thou/uL (0.0-0.7); #Monocytes 0.8 thou/uL (0.11-0.59); #Neutrophils 4.8 thou/uL (1.40-6.50); %Basophils 0.2 % (0.0-1.0); %Eosinophils 1.9 % (0.0-10.0); %Lymphocytes 14.6 % (21.0-51.0); %Monocytes 11.9 % (0.0-10.0); %Neutrophils 71.4 % (42.0-75.0); Hemoglobin 10.2 g/dL (14.0-18.0); Mean Corpuscular HGB CONC 33.7 g/dL (32.0-36.0); Mean Corpuscular Hemoglobin 33.9 pg (27.0-31.0); Mean Platelet Volume 8.9 fL (7.4-10.4); Platelet Count 185 thou/uL (130-400); RBC Distribution Width 14.3 % (11.5-14.5); White Blood Cell (WBC) Count 6.8 thou/uL (4.8-10.8)
[2020-03-03 13:52] LABS: Anion Gap 18 mmol/L (10-20); BUN (Urea Nitrogen) 39 mg/dL (8.4-25.7); Calc. Creatinine Clearance 0 mL/min (70-130); Calcium 8.5 mg/dL (7.8-10.44); Carbon Dioxide 25 mmol/L (23-31); Chloride 101 mmol/L (98-107); Estimated GFR-MDRD 5; Glucose 150 mg/dL (83-110); Potassium 4.9 mmol/L (3.5-5.1); Sodium 139 mmol/L (136-145)
[2020-03-03] MEDS ORDERED: Aspirin Chewable 81 MG TAB ONE (14:36)
--- NOTE | 2020-03-03 15:24 | PDOC.FPRHP ---
- History of Present Illness Chief Complaint: Fall History of Present Illness: 74yo M with pmhx of ESRD, HTN, and DMII presents to ED with complaint of fall/near syncope. Pt was recently admitted for generalized weakness and discharged yesterday. Symptoms were attributed to pt missing dialysis. Pt notes that he has had falls the past few days that all occurred when going from sitting to standing position. He denies any recent changes to his BP rx. Pt denies losing consciousness or injury from the fall. He states he was too weak to get up and had to call his nephew this morning for assistance. He denies any chest pain, shortness of breath, nausea, vomiting, diarrhea. - Allergies/Adverse Reactions Allergies Allergy/AdvReac Type Severity Reaction Status Date / Time No Known Allergies Allergy Verified 03/01/20 23:27 - Home Medications Medication Instructions Recorded Confirmed Type Insulin NPH Hum/Reg Insulin HM 14 unit SQ BID PRN 05/22/18 03/03/20 History [Humulin 70-30 Vial] Aspirin/Calcium Carbonate/Mag 325 mg PO BID 03/01/20 03/03/20 History [Buffered Aspirin 325 mg Tb] hydrALAZINE HCl [Hydralazine HCl] 50 mg PO BID 03/01/20 03/03/20 History traMADol HCl [Tramadol HCl] 50 mg PO BID 03/01/20 03/03/20 History - History PMHx: -ESRD, sees Dr. Teixeira -HTN -DMII PSHx: -cataract surgery L eye -appendectomy FHx: -mother: DM Social: currently smokes 1 PPD since 15 years of age, etoh quit 6 years ago, no drug use - Review of Systems General: denies: fever/chills, weight/appetite/sleep changes Eyes: denies: vision changes, other ENT: denies: rhinorrhea, other Respiratory: denies: cough, shortness of breath Cardiovascular: denies: chest pain, palpitation, edema Gastrointestinal: denies: nausea, vomiting, diarrhea Genitourinary: denies: incontinence, dysuria Skin: denies: rashes, lesions Musculoskeletal: denies: swelling, arthritis/arthralgias Neurological: reports: syncope (near syncope), weakness. denies: numbness, seizure Psychological: denies: depression, other - Vital signs BP: 142/66, MAP: 91, Pulse: 70, Resp: 16 (Non-Labored), Temp: 97.6 (Oral), Pain: 0, O2 sat: 98% - Physical Exam Constitutional: NAD, awake, alert and oriented, well developed HEENT: normocephalic and atraumatic, PERRLA, EOMI, grossly normal vision, grossly normal hearing, MMM Neck: supple, FROM -Neck: Audible carotid bruits, sound to be radiating from systolic murmur Heart: RRR, normal S1/S2 -Heart: 2/5 systolic murmur, left and right sternal border Lungs: CTAB, no respiratory distress, good air movement Abdomen: soft, non-tender, bowel sounds present Musculoskeletal: normal structure, normal tone, ROM grossly normal Neurological: no focal deficit, CN II-XII intact, normal sensation Skin: no rash/lesions, capillary refill <2 seconds Heme/Lymphatic: no unusual bruising or bleeding, no purpura Psychiatric: normal mood and affect, good judgment and insight, intact recent and remote memory FMR H&P: Results - Labs Result Diagrams: 03/03/20 13:10 03/03/20 13:10 Lab results: WBC 6.8 thou/uL (4.8-10.8) 03/03/20 13:10 Hgb 10.2 g/dL (14.0-18.0) L 03/03/20 13:10 Hct 30.1 % (42.0-52.0) L 03/03/20 13:10 MCV 101.0 fL (78.0-98.0) H 03/03/20 13:10 Plt Count 185 thou/uL (130-400) 03/03/20 13:10 Neutrophils % 71.4 % (42.0-75.0) 03/03/20 13:10 Sodium 139 mmol/L (136-145) 03/03/20 13:10 Potassium 4.9 mmol/L (3.5-5.1) 03/03/20 13:10 Chloride 101 mmol/L (98-107) 03/03/20 13:10 Carbon Dioxide 25 mmol/L (23-31) 03/03/20 13:10 BUN 39 mg/dL (8.4-25.7) H 03/03/20 13:10 Creatinine 9.77 mg/dL (0.7-1.3) H 03/03/20 13:10 Glucose 150 mg/dL (83-110) H 03/03/20 13:10 Calcium 8.5 mg/dL (7.8-10.44) 03/03/20 13:10 - Radiology Interpretation CT scan - head Status: report reviewed by me (chronic small vessel ischemic changes) FMR H&P: A/P - Plan This is a 74 y/o M with PMHx of ESRD TTHS, HTN, DMII Fall 2/2 orthostasis vs near sycope -occurs with sitting to standing position, has systolic murmur on exam -CT head non con in ED negative -admit to stroke, neuro checks -Echo -CTA head and neck tomorrow prior to dialysis -Orthostatics ESRD T//S -Dr. Teixeira consulted -Dialysis tomorrow Chronic Conditions: -HTN: home meds -DM: home meds, SSI -Tobacco abuse: cessation encouraged CODE: DNAR VTE: none DIET: Renal PCP: CC Dispo: admitted to observation, stroke floor FMR H&P: Upper Level - Plan Date/Time: 03/03/20 1525
[2020-03-03] MEDS ORDERED: HumaLOG 300 UNITS/3 ML VIAL SC PRN ×2 (17:28)
[2020-03-03] MEDS ORDERED: Dextrose 50% Abboject 50 ML SYRINGE SLOW IVP PRN (17:28)
[2020-03-03] MEDS ORDERED: Dextrose 5% in Water 1,000 ML IV PRN (17:28)
[2020-03-03] MEDS ORDERED: Acetaminophen 650 MG Suppository PR PRN (17:28)
[2020-03-03] MEDS ORDERED: Acetaminophen 325 MG TAB PO PRN (17:28)
[2020-03-03 17:40] VITALS: BMI 31.8
--- NOTE | 2020-03-03 18:43 | PRG ---
DATE OF SERVICE: 03/03/2020 SUBJECTIVE: Mr. Carranza is a 74-year-old male with ESRD, who was admitted for generalized leg weakness. Due to the leg weakness, he had a fall. The patient denies any associated syncopal episode with this. We are being consulted for management of his ESRD as well as maintenance hemodialysis. His regular dialysis days Sunday, , and Sunday. REVIEW OF SYSTEMS: No chest pain. No syncopal episode. Positive for bilateral leg weakness. No nausea. No vomiting. No diarrhea. No constipation. No fever or chills. No melena. No hematochezia. MEDICATIONS: Currently on, 1. Tylenol 650 mg q.4 p.r.n. 2. Ecotrin 325 mg once a day. 3. Humalog sliding scale. 4. Heparin 5000 units subcu t.i.d. PHYSICAL EXAMINATION: VITAL SIGNS: Blood pressure is 182/81, heart rate 75, respiratory rate 18, O2 saturation 100%. GENERAL: The patient is awake, comfortable, not in distress. SKIN: Adequate turgor. HEENT: Pinkish conjunctivae. Anicteric sclerae. No neck mass. No carotid bruits. No JVD. CHEST: No deformities. LUNGS: Clear breath sounds. No wheezing. No crackles. HEART: Normal sinus rhythm. No murmur. No gallops. No rubs. ABDOMEN: Globular, soft, nontender, no masses. EXTREMITIES: No edema. Positive for decreased motor activity of the lower extremities. LABORATORY DATA: Laboratories of March 03, 2020; white count 6.8, hemoglobin 10.2, and hematocrit 30.1. Sodium 139, potassium 4.9, chloride 101, carbon dioxide 25, BUN 39, creatinine 9.77, glucose 150, calcium 8.5. CK is 1225. On March 03, 2020, his CT scan of the brain showed no acute intracranial process. ASSESSMENT AND PLAN: 1. Fall/lower leg weakness-the patient being ruled out for cerebrovascular accident. CAT scan was essentially negative. Brain MRI will be ordered. If the brain MRI is negative, consider neurological evaluation or consultation for further workup of this generalized lower weakness. The possibility that he may have a diabetic neuropathy remains. 2. End-stage renal disease, stable. We will continue three times a week hemodialysis. No indication for any emergent hemodialysis at the present time. He has tolerated the previous dialysis regimen, and for that reason, we will not make any changes. 3. Borderline anemia-consider starting Epogen at 7500 units subcu every week. Job ID: [id number]
--- NOTE | 2020-03-03 19:29 | HP ---
I have examined the patient. I have discussed the case with Dr. Chaparro Hickey and agree with his assessment and plan. HISTORY OF PRESENT ILLNESS: Briefly, Mr. Carranza is a pleasant 74-year-old man with a history of end-stage renal disease, on dialysis. He was just released yesterday after a dialysis session. He had missed his previous session on Sunday and began to feel weak. He was discharged yesterday, went home and was sitting on the couch. He states he had a great deal of difficulty trying to rise from a sitting position on the couch and fell to the floor. Evidently, he stayed there most of the night until his nephew found him the next morning, where he had crawled into bed. He does not relate any loss of consciousness. Just generalized weakness, whereby he could not rise from a sitting position. He was brought to the ER and has been admitted for a possible TIA workup. PHYSICAL EXAMINATION: VITAL SIGNS: On exam today, his blood pressure is 140/87, respirations 12, temperature afebrile, pulse rate is 88. GENERAL: He is awake, alert, in no distress. EAR, NOSE, AND THROAT: No erythema or exudate. NECK: Supple. CARDIAC: Heart rhythm regular. Possible mild systolic/holosystolic murmur heard best at the apex. Sounds like possible mild MR. LUNGS: Clear without rales or wheezes. ABDOMEN: Flat and soft without guarding or rebound. EXTREMITIES: Trace edema. NEUROLOGIC: He has no focal deficits. LABORATORY DATA: CBC; his white count is 6800, hemoglobin 10.2, hematocrit 30.1, with an MCV of 101. Chemistry; sodium 139, potassium 4.9, chloride 101, bicarb 25, BUN 39, creatinine 9.77, and glucose is 150. ASSESSMENT: Fall at home with generalized weakness. PLAN: Since this is Mr. Carranza's second visit to the ER with complaints of generalized weakness and since there was a fall at home, we will consider the possibility of a TIA and do a TIA workup to include CTA of the head and neck and echocardiogram. Other workup depending on our initial findings. Also, this could represent just some generalized deconditioning and we will get OT and PT involved. Job ID: [id number]
[2020-03-03] MEDS: Heparin 5,000 UNITS/ML VIAL SC SCH (21:37)
[2020-03-04 05:01] LABS: #Eosinphils 0.2 thou/uL (0.0-0.7); #Lymphocytes 1.2 thou/uL (1.20-3.40); #Monocytes 0.7 thou/uL (0.11-0.59); #Neutrophils 3.8 thou/uL (1.40-6.50); %Basophils 0.1 % (0.0-1.0); %Eosinophils 2.9 % (0.0-10.0); %Lymphocytes 20.8 % (21.0-51.0); %Monocytes 11.8 % (0.0-10.0); %Neutrophils 64.3 % (42.0-75.0); Hemoglobin 9.3 g/dL (14.0-18.0); Mean Corpuscular HGB CONC 33.5 g/dL (32.0-36.0); Mean Corpuscular Hemoglobin 34.2 pg (27.0-31.0); Mean Platelet Volume 8.4 fL (7.4-10.4); Platelet Count 159 thou/uL (130-400); RBC Distribution Width 14.1 % (11.5-14.5); Red Blood Cell (RBC) Count 2.73 mill/uL (4.70-6.10); White Blood Cell (WBC) Count 5.9 thou/uL (4.8-10.8)
[2020-03-04 05:17] LABS: Anion Gap 16 mmol/L (10-20); BUN (Urea Nitrogen) 47 mg/dL (8.4-25.7); Calc. Creatinine Clearance 8 mL/min (70-130); Calcium 8.3 mg/dL (7.8-10.44); Carbon Dioxide 26 mmol/L (23-31); Chloride 101 mmol/L (98-107); Estimated GFR-MDRD 5; Glucose 151 mg/dL (83-110); Potassium 4.5 mmol/L (3.5-5.1); Sodium 138 mmol/L (136-145)
--- NOTE | 2020-03-04 06:00 | PDOC.FM ---
- Subjective Subjective: Resting comfortably in bed, no acute distress. Reports continued weakness of his BLE, right > left. Reports that he has pain that originates in his right hip. Denies chest pain, sob, N/V. - Objective MAR Reviewed: Yes Vital Signs & Weight: Vital Signs (12 hours) Temp Pulse Resp BP Pulse Ox 03/04/20 04:00 98.0 F 63 18 152/68 H 97 03/04/20 00:00 98.3 F 67 18 167/72 H 95 03/03/20 20:00 97.7 F 69 20 182/81 H 100 Weight Weight 97.613 kg I&O: 03/02/20 03/03/20 03/04/20 06:59 06:59 06:59 Intake Total 640 Balance 640 Result Diagrams: 03/04/20 04:38 03/04/20 04:38 EKG Reviewed by me: Yes (No events overnight, SR) Phys Exam - Physical Examination Constitutional: NAD Neck: supple, full ROM Respiratory: no wheezing, no rales, no rhonchi, clear to auscultation bilateral Cardiovascular: RRR systolic murmur Gastrointestinal: soft, non-tender, no distention, positive bowel sounds Musculoskeletal: no edema Neurological: non-focal, normal sensation, moves all 4 limbs Psychiatric: normal affect Dx/Plan - Plan Plan: S/P Fall 2/2 orthostasis vs. syncope vs. deconditioning -negative orthostatics -CT head non con in ED negative -CTA negative -Echo, MRI pending -DANIS pending -PT/OT consulted for evaluation/treatment -CM/Palliative consulted for placement and goals of care -no tele events overnight ESRD T//S -will go to dialysis today -we have consulted Dr. parisi HTN -home meds DM -home meds, SSI Tobacco abuse -cessation counseling CODE: DNAR VTE: none DIET: Renal PCP: CC Dispo: pending further medical management; will likely need placement
[2020-03-04] MEDS: Heparin 5,000 UNITS/ML VIAL SC SCH ×3 (09:00→21:45)
[2020-03-04] MEDS ORDERED: Epoetin (ESRD) 20,000 UNITS/ML SC SCH (09:00)
--- NOTE | 2020-03-04 09:12 | PRG ---
DATE OF SERVICE: 03/04/2020 SUBJECTIVE: Mr. Carranza is a 74-year-old male with ESRD-currently followed by the Renal Service for his maintenance hemodialysis and management of his ESRD. He was initially admitted due to a fall. The patient tells me he has some right/left leg weakness that caused him to fall. A CAT scan of the head was initially done, which showed no acute intracranial abnormality. In addition, this morning, the patient underwent CT angio of the [place]. No other complaints today. The patient denies any chest pain or shortness of breath. OBJECTIVE: VITAL SIGNS: Blood pressure is 168/74, heart rate 62, respiratory rate 18, temperature 97.9, O2 saturation 97%. GENERAL: Patient is awake, alert, not in distress, obese. SKIN: Adequate turgor. HEENT: He has slightly pale conjunctivae. Anicteric sclerae. NECK: No neck mass. No carotid bruits. No JVD. CHEST: No deformities. LUNGS: Clear breath sounds. HEART: Normal sinus rhythm. No murmurs, gallops, or rubs. ABDOMEN: Globular, soft, nontender, no masses. EXTREMITIES: No edema. No deformities. Able to move his lower extremities with motor being about 4/5. MEDICATIONS: March 04, 2020, reviewed. LABORATORY DATA: March 04, 2020, white count 5.9, hemoglobin 9.3. Sodium 138, potassium 4.5, chloride 101, carbon dioxide 26, BUN 47, creatinine 11.1, glucose 151, calcium 8.3. CT angio of the [place] currently pending. ASSESSMENT/PLAN: 1. Generalized leg weakness-CT angio of the brain was done. Results are pending. If the leg weakness has no clear etiology, consider neurological consultation. The possibility of diabetic neuropathy remains with this patient. 2. Endstage renal disease, stable. Currently scheduled for hemodialysis this morning. I plan to do a 3.5 hour hemodialysis with fluid removal as tolerated by the patient. We are planning to use a 3.0 potassium bath with this patient. 3. Anemia. We will restart Epogen at 7500 units subcu every week. 4. Recheck CBC, base met in a.m. Job ID: [id number]
[2020-03-04] MEDS ORDERED: Iopamidol 370 76% 100 ML VIAL ONE (09:32)
--- NOTE | 2020-03-04 09:40 | CT ---
CTA HEAD WITH AND WITHOUT CONTRAST FOLLOWING ANGIO PROTOCOL CTA NECK WITH IV CONTRAST FOLLOWING ANGIO PROTOCOL: Multiplanar reconstruction and 3D post processing performed for CTA of head and neck with angio jefferson col. INDICATION: Stroke protocol. FINDINGS: CT HEAD WITHOUT CONTRAST: Comparison is made to yesterday's noncontrast head CT. There is cortical atrophy and ventriculomegaly which is stable. No evidence of intracranial mass, he morrhage, or infarct. Mild chronic ischemic change. IMPRESSION: No acute finding or interval change. CTA HEAD: The intracranial internal carotid arteries are patent and symmetric. Mild atherosclerotic calcificat ions are seen in the cavernous portions of both ICAs without significant stenosis identified. Anterior cerebral arteries are patent and symmetric. Both middle cerebral arteries are patent and symmetric. No evidence of focal proximal stenosis or oc clusion. The basilar artery is patent. Both posterior cerebral arteries are patent and symmetric. The dural venous sinuses appear patent. IMPRESSION: Unremarkable CTA head. CTA NECK: No evidence of stenosis at the origin of the arch vessels. Common carotid arteries are patent and symmetric. Mild atherosclerotic change is seen in the bulbs bilaterally. No evidence of internal carotid artery stenosis identified on either side. Vertebral arteries are patent. Mildly dominant right vertebral. Soft tissues show no significant mass or adenopathy. IMPRESSION: Unremarkable CTA neck. Mild atherosclerotic change seen in both bulbs. POS: AGW
--- NOTE | 2020-03-04 11:51 | PRG ---
DATE OF SERVICE: 03/04/2020 Mr. Carranza is in dialysis currently. He is awake, alert, appearing pleasant, in no distress. He is complaining of some bilateral leg weakness. His CTA of the head and neck was unremarkable. We will begin to get OT and PT to work with him to see if we can get him some strengthening exercises and walking exercises for his lower extremity weakness. This could be a conditioning problem but we will continue to monitor as well as follow with the Nephrology Service. Job ID: [id number]
[2020-03-04] MEDS ORDERED: EPOETIN ALFA-EPBX (ESRD) 4,000 UNIT/ML VIAL SC SCH (12:00)
--- NOTE | 2020-03-04 14:35 | MRI ---
MRI BRAIN WITHOUT CONTRAST: HISTORY: Headache, weakness and falls CORRELATION: CT scan from 03/03/2020. FINDINGS: No restricted diffusion is seen. There are multiple foci of T2 prolongation in the periventricular wh ite matter, consistent with chronic small vessel ischemic disease. The ventricular size is appropriate and the basilar cisterns are patent. There are changes of cortical atrophy. No evidence of acute infarct, hemorrhage, midline shift or abnormal extra-axial fluid collections is seen. The visualized paranasal sinuses and mastoid air cells are well-aerated. IMPRESSION: No evidence of acute intracranial process.
[2020-03-04] MEDS: Aspirin 325 mg Enteric Coated Tablet PO SCH (16:31)
[2020-03-05 05:13] LABS: #Eosinphils 0.1 thou/uL (0.0-0.7); #Lymphocytes 1.1 thou/uL (1.20-3.40); #Monocytes 0.6 thou/uL (0.11-0.59); #Neutrophils 4.8 thou/uL (1.40-6.50); %Basophils 0.2 % (0.0-1.0); %Eosinophils 2.1 % (0.0-10.0); %Lymphocytes 16.4 % (21.0-51.0); %Neutrophils 72.3 % (42.0-75.0); Hemoglobin 10.1 g/dL (14.0-18.0); Mean Corpuscular HGB CONC 32.8 g/dL (32.0-36.0); Mean Corpuscular Hemoglobin 33.2 pg (27.0-31.0); Mean Platelet Volume 8.7 fL (7.4-10.4); Platelet Count 183 thou/uL (130-400); RBC Distribution Width 14.1 % (11.5-14.5); Red Blood Cell (RBC) Count 3.04 mill/uL (4.70-6.10); White Blood Cell (WBC) Count 6.7 thou/uL (4.8-10.8)
--- NOTE | 2020-03-05 05:29 | PDOC.FM ---
- Subjective Subjective: Reports that his weakness is the same, but he was able to ambulate to and from the bathroom without difficulty. Denies N/V/D, SOB, Chest pain. - Objective MAR Reviewed: Yes Vital Signs & Weight: Vital Signs (12 hours) Temp Pulse Resp BP Pulse Ox 03/05/20 00:00 98.7 F 65 12 159/69 H 98 03/04/20 20:00 97.7 F 68 17 144/63 H 97 Weight Admit Weight 97.613 kg Weight 97.613 kg I&O: 03/03/20 03/04/20 03/05/20 06:59 06:59 06:59 Intake Total 940 450 Output Total 3000 Balance 940 -2550 Result Diagrams: 03/05/20 04:44 03/05/20 04:44 Phys Exam - Physical Examination Constitutional: NAD Neck: supple, full ROM Respiratory: no wheezing, no rales, no rhonchi, clear to auscultation bilateral Cardiovascular: RRR Systolic murmur with radiation to the carotids Gastrointestinal: soft, non-tender, no distention, positive bowel sounds Musculoskeletal: no edema, pulses present Psychiatric: normal affect Dx/Plan - Plan Plan: S/P Fall 2/2 orthostasis vs. syncope vs. deconditioning -negative orthostatics -CT, CTA, MRI negative -Echo, DANIS results pending -PT/OT unable to evaluate pt yesterday due to patient being out of room, will f/u their recs today -CM/Palliative consulted for placement and goals of care -no tele events overnight ESRD T//S -Nephro, Dr. Teixeira consulted -Dialysis per Dr. Teixeira HTN -home meds DM -home meds, SSI Tobacco abuse -cessation counseling CODE: DNAR VTE: none DIET: Renal PCP: CC Dispo: pending further medical management; will likely need placement
[2020-03-05 05:36] LABS: Anion Gap 16 mmol/L (10-20); BUN (Urea Nitrogen) 32 mg/dL (8.4-25.7); Calc. Creatinine Clearance 11 mL/min (70-130); Calcium 8.6 mg/dL (7.8-10.44); Carbon Dioxide 26 mmol/L (23-31); Chloride 101 mmol/L (98-107); Estimated GFR-MDRD 6; Glucose 115 mg/dL (83-110); Potassium 4.4 mmol/L (3.5-5.1); Sodium 139 mmol/L (136-145)
[2020-03-05] MEDS: Aspirin 325 mg Enteric Coated Tablet PO SCH (08:58)
[2020-03-05] MEDS: hydrALAZINE 25 MG TAB PO SCH ×2 (08:58→21:47)
[2020-03-05] MEDS: Heparin 5,000 UNITS/ML VIAL SC SCH ×3 (08:59→21:47)
--- NOTE | 2020-03-05 11:14 | PRG ---
DATE OF SERVICE: Mr. Carranza is undergoing dialysis without problem. This morning, he feels much better, in fact looks much better. He states he is ambulating up and down the alba without difficulty. He is still working with OT, PT. I anticipate he can likely be discharged tomorrow if his physical activity continues. Job ID: [id number]
--- NOTE | 2020-03-05 17:27 | PRG ---
DATE OF SERVICE: 03/05/2020 SUBJECTIVE: Mr. Carranza is a 74-year-old male with ESRD and followed by the Renal Service for management of his ESRD as well as maintenance hemodialysis. He was admitted due to frequent falls and headache. MRI of the brain showed no acute intracranial abnormality. There was finding suggestive cortical atrophy. His leg strength is actually improving. He is undergoing physical therapy. He voices no new complaints. He denies any chest pain or shortness of breath. OBJECTIVE: VITAL SIGNS: Blood pressure 175/76, heart rate 66, respiratory rate 10, temperature 98.2, O2 saturation 97%. GENERAL: The patient is awake, alert, comfortable, not in overt distress. SKIN: Adequate turgor. HEENT: He has pinkish conjunctivae. Anicteric sclerae. No neck mass. No carotid bruits. No JVD. CHEST: No deformities. LUNGS: Clear breath sounds. No wheezing. No crackles. HEART: Normal sinus rhythm. No murmur. No gallops. No rubs. ABDOMEN: Globular, soft, nontender. No masses. EXTREMITIES: No edema. MEDICATIONS: Medications of March 05, 2020, reviewed. LABORATORY DATA: Laboratories of March 05, 2020; white count 6.7, hemoglobin 10.1. Sodium 139, potassium 4.4, chloride 101, carbon dioxide 26, BUN 32, creatinine 8.36, glucose 105, calcium 8.6. ASSESSMENT AND PLAN: 1. End-stage renal disease, stable, tolerating current hemodialysis regimen, Sunday, , and Sunday. Fluid removal only as tolerated. There is no indication for an emergent hemodialysis today. 2. Anemia. Continuing weekly Epogen for this patient. 3. Generalized weakness, clinically improving. The patient is ambulating with assistance from the physical therapist. Brain MRI was said to be negative. As previously noted, the weakness of the legs could be related from diabetic neuropathy. Job ID: [id number]
[2020-03-05] MEDS: traMADol HCl 50 MG TAB PO SCH (21:45)
[2020-03-06 05:53] LABS: #Eosinphils 0.2 thou/uL (0.0-0.7); #Lymphocytes 1.1 thou/uL (1.20-3.40); #Monocytes 0.6 thou/uL (0.11-0.59); #Neutrophils 3.5 thou/uL (1.40-6.50); %Basophils 0.4 % (0.0-1.0); %Eosinophils 3.7 % (0.0-10.0); %Lymphocytes 20.6 % (21.0-51.0); %Monocytes 10.5 % (0.0-10.0); %Neutrophils 64.8 % (42.0-75.0); Hemoglobin 9.4 g/dL (14.0-18.0); Mean Corpuscular HGB CONC 32.9 g/dL (32.0-36.0); Mean Corpuscular Hemoglobin 33.2 pg (27.0-31.0); Mean Platelet Volume 8.8 fL (7.4-10.4); Platelet Count 182 thou/uL (130-400); RBC Distribution Width 14.1 % (11.5-14.5); Red Blood Cell (RBC) Count 2.82 mill/uL (4.70-6.10); White Blood Cell (WBC) Count 5.4 thou/uL (4.8-10.8)
--- NOTE | 2020-03-06 05:53 | PDOC.FM ---
- Subjective Subjective: Pt resting comfortably in bed this AM. No concerns or complaints. He wants to go home. - Objective MAR Reviewed: Yes Vital Signs & Weight: Vital Signs (12 hours) Temp Pulse Resp BP BP BP BP 03/06/20 04:26 97.9 F 60 16 189/62 H 03/05/20 23:54 161/74 H 03/05/20 21:47 70 175/70 H 03/05/20 19:37 97.8 F 70 16 187/77 H Pulse Ox 03/06/20 04:26 100 03/05/20 23:54 03/05/20 21:47 03/05/20 19:37 100 Weight Admit Weight 97.613 kg Weight 97.613 kg I&O: 03/04/20 03/05/20 03/06/20 06:59 06:59 06:59 Intake Total 677 664 4446 Output Total 3000 200 Balance 940 -2550 914 Result Diagrams: 03/06/20 05:17 03/06/20 05:17 Phys Exam - Physical Examination Constitutional: NAD HEENT: moist MMs Neck: supple, full ROM Respiratory: no wheezing, clear to auscultation bilateral Cardiovascular: RRR, no significant murmur Gastrointestinal: soft, non-tender Musculoskeletal: no edema, pulses present Neurological: moves all 4 limbs Lymphatic: no nodes Psychiatric: normal affect, A&O x 3 Skin: normal turgor Dx/Plan - Plan Plan: S/P Fall 2/2 likely deconditioning -negative orthostatics -CT, CTA, MRI negative -Echo results pending -PT/OT on board, appreciate the recs -CM/Palliative consulted for placement and goals of care, plan for home health ESRD T//S -Nephro, Dr. Teixeira consulted -Dialysis per Dr. Teixeira HTN -home meds DM -home meds, SSI Tobacco abuse -cessation counseling CODE: DNAR VTE: none DIET: Renal PCP: CC Dispo: pending further medical management; home with home health
[2020-03-06 06:04] LABS: Anion Gap 17 mmol/L (10-20); BUN (Urea Nitrogen) 41 mg/dL (8.4-25.7); Calc. Creatinine Clearance 9 mL/min (70-130); Calcium 8.4 mg/dL (7.8-10.44); Carbon Dioxide 25 mmol/L (23-31); Chloride 100 mmol/L (98-107); Estimated GFR-MDRD 5; Glucose 125 mg/dL (83-110); Potassium 5.2 mmol/L (3.5-5.1); Sodium 137 mmol/L (136-145)
--- NOTE | 2020-03-06 10:16 | PRG ---
DATE OF SERVICE: 03/06/2020 SUBJECTIVE: Mr. Carranza is a 74-year-old male with ESRD, and currently, we are following him up for his maintenance hemodialysis. He was initially admitted for generalized weakness and frequent falls. MRI of the brain showed no acute intracranial abnormality. His complaints of lower leg weakness have actually improved. He is ambulating with support. No complaints of chest pain or shortness of breath. He is currently undergoing hemodialysis. OBJECTIVE: VITAL SIGNS: Blood pressure 178/74, heart rate 69, respiratory rate 20, temperature 98, O2 saturation 100%. GENERAL: The patient is sleeping, arousable, comfortable, not in distress. SKIN: Adequate turgor. HEENT: Slightly pale conjunctivae. Anicteric sclerae. NECK: No neck mass. No carotid bruits. No JVD. CHEST: No deformities. LUNGS: Clear breath sounds. No wheezing. No crackles. HEART: Normal sinus rhythm. No murmurs, no gallops, no rubs. ABDOMEN: Globular, soft, nontender. No masses. EXTREMITIES: No edema. No deformities. MEDICATIONS: Medications of March 06, 2020, reviewed. LABORATORY DATA: Laboratories of March 06, 2020, white count 5.4, hemoglobin 9.4, hematocrit 28.5. Sodium 137, potassium 5.2, chloride 100, carbon dioxide 25, BUN 41, creatinine 10.59, calcium 8.4, glucose 124. ASSESSMENT AND PLAN: 1. End-stage renal disease, stable, tolerating current maintenance hemodialysis. Fluid removal is being done and the patient is tolerating this. No changes will be made with the current dialysis regimen. 2. Generalized weakness/lower leg weakness-slightly improved. Continue supportive care. MRI of the brain showed no acute CVA. 3. Anemia, on weekly Epogen. P.r.n. blood transfusion. Agree with planned discharge. Job ID: [id number]
[2020-03-06] MEDS: Heparin 5,000 UNITS/ML VIAL SC SCH ×2 (13:34→14:55)
[2020-03-06] MEDS: hydrALAZINE 25 MG TAB PO SCH (13:39)
[2020-03-06] MEDS: Aspirin 325 mg Enteric Coated Tablet PO SCH (13:39)
[2020-03-06] MEDS: traMADol HCl 50 MG TAB PO SCH (13:40)
[2020-03-06 15:28] VITALS: BP 121/57; TEMP 98.2
--- NOTE | 2020-03-06 18:08 | PRG ---
DATE OF SERVICE: 03/06/2020 Please see note from Dr. Yumiko Buckley, for which I agree. The patient was seen, evaluated, discussed, and examined with the residents by bedside. This gentleman is here status post fall, likely deconditioning and is currently getting dialysis, but has been doing fine since he has been here. Echocardiogram is still pending, but the workup otherwise has been negative and should be able to be discharged, likely outpatient physical therapy would be ideal. No other changes will be needed. Job ID: [id number]
[2020-03-06] MEDS ORDERED: [UNRECOGNIZED DRUG - OTHER] PO SCH (21:00)
[2020-03-06] MEDS ORDERED: ASPIRIN PO SCH (21:00)
[2020-03-06] MEDS ORDERED: CALCIUM CARBONATE PO SCH (21:00)
[2020-03-06] MEDS ORDERED: MAG PO SCH (21:00)
[2020-03-06] MEDS ORDERED: HumuLIN 70/30 (300 UNITS/3 ML VIAL) SC SCH (21:00)
--- NOTE | 2020-03-07 23:04 | DIS ---
DATE OF ADMISSION: 03/05/2020 DATE OF DISCHARGE: 03/06/2020 ADMITTING ATTENDING: Tony Waters MD. DISCHARGE ATTENDING: Rick Mendoza MD. CONSULTS: Nephrology, Case Management, PT, OT. PROCEDURES: Brain CT, which showed no evidence of acute intracranial process. Echocardiogram, which showed an EF of 50% to 60%, [id number] concentric left ventricular hypertrophy, diastolic dysfunction, thickened aortic valve with normal excursion, tricuspid regurg, mildly increased pulmonary pressures. CT lumbee of Gallardo angio with contrast showed no acute findings. Brain MRI, which showed no evidence of acute intracranial process. PRIMARY DIAGNOSES: Status post fall secondary to likely deconditioning. SECONDARY DIAGNOSES: 1. End-stage renal disease, on dialysis. 2. Hypertension. 3. Diabetes. 4. Tobacco abuse. DISCHARGE MEDICATIONS: 1. Epoetin 7500 units subcutaneous q.7 days. 2. Humulin 70/30 14 units subcu b.i.d. 3. Tramadol 50 mg p.o. b.i.d. 4. Hydralazine 50 mg p.o. b.i.d. 5. Aspirin 325 mg p.o. daily. DISCONTINUED MEDICATIONS: None. HISTORY OF PRESENT ILLNESS/HOSPITAL COURSE: Patient is a 74-year-old male, who presented to the ED with chief complaint of fall/near syncope. Patient was recently admitted for generalized weakness and discharged the previous day. Patient states symptoms were attributed to missing dialysis. He states he has had falls in the past few days that occurred when going from sitting to standing. He denied any recent changes to his blood pressure medication. He denies losing consciousness from injury or fall. He said he was too weak to get up and had to call his nephew on the day of admission for assistance. He denied any additional symptoms like chest pain, shortness of breath, nausea, vomiting, or diarrhea. During hospitalization, his orthostatic vitals were tested, which were negative. Imaging and stroke workup were negative. He worked with PT and OT. Vitals remain stable and there were no events as per telemetry. Patient denied placement and he desired to go home with home health. DISPOSITION: Stable. DISCHARGE INSTRUCTIONS: 1. Location: Home with home health. 2. Diet: Renal diet. 3. Activity: As tolerated. 4. Followup: Follow up with primary care doctor, Dr. Morales, within the week. Job ID: [id number] LINDA
--- NOTE | 2020-03-08 10:42 | CCLSPC ---
Lower extremity arterial evaluation using Doppler waveform analysis and segmental limb pressures. The study was very limited due to noncompressible vessels making blood pressure readings in the ankles bilaterally unobtainable. As such, ankle arm index could also not be calculated. Examination of the right leg revealed mild abnormalities in the femoral and popliteal waveforms with mild abnormalities in the posterior tibial and moderate abnormalities in the dorsalis pedis. The left lower extremity demonstrated mild disease at all levels. This study would be consistent with mild peripheral vascular disease on the left leg and mild to moderate on the right leg. Due to inability to obtain ankle arm index, it is difficult to ascertain the degree of vascular insufficiency but probably not consistent with ischemic rest pain, and if this is suspected, further evaluation and examination may be appropriate. Job ID: [id number]
--- NOTE | 2020-03-09 05:01 | PQF ---
Dear : Rick Mendoza Date 03/09/2020 Please exercise your independent, professional judgment in responding to the clarification form. Clinical indicators are provided on the bottom of this form for your review Can you please further clarify the etiology of weakness? Please check appropriate box(es): [ ] Weakness due to diabetic neuropathy [ ] Weakness due to missed dialysis [ ] Other diagnosis please specify [ ] Unable to determine In addition, please specify: Present on Admission (POA): [ ] Yes [ ] No [ ] Unable to determine Physician Signature: Date/Time: For continuity of documentation, please document condition throughout progress notes and discharge summary. Thank You. To be completed by CDI/Coding staff for physician review: Present Clinical Indicators - Signs / Symptoms / Labs Results and Location in Medical Record [ x ] Status post fall secondary to likely deconditioning DS pg.1 [ x ] Admitted for generalized weakness and discharged the previous day. Patient states symptoms were attributed to missing dialysis DS pg.2 [ x ] Generalized lower weakness, the possibility that he may have a diabetic neuropathy Consult pg.2 03/03 [ x ] Leg weakness has no clear etiology, the possibility of diabetic neuropathy remains with this patient PN 03/04 pg.1 [ x ] The weakness of the legs could be related from diabetic neuropathy PN 03/05 pg.1 [ x ] Study would be consistent with mild peripheral vascular disease of the left leg PN 03/05 pg.1 Present Risk Factors Results and Location in Medical Record [ x ] ESRD H and P pg.1 [ x ] HTN H and P pg.1 [ x ] DMII H and P pg.1 [ x ] smoker H and P pg.2 [ x ] 74 years old male H and P pg.1 Present Treatments Results and Location in Medical Record [ x ] IV Fluids MAR [ x ] TTE 03/04 [ x ] Arteriogram laboratory supervisor Procedure 03/08 [ x ] Hemodialysis Order 03/05 [ x ] Nephrology Consult Consult 03/03 [ x ] PT Consult Consult 03/03 CDS/Dividend Deposit Entry Clerk Signature: Garret Suarez Phone #: ext [phone] Date 03/09/2020 This is a permanent part of the Medical Record [facility]
== END 2020-03-06 17:03 | disposition home health service (06) | DRG 73 ==
LOC: ERS 12:00 → 2SE 17:14 → OBSVTOIN 03-05 10:15
PROVIDERS: ADMIT Family Medicine; ATTEND Family Medicine
PROC: B44FZZZ Ultrasonography of Right Lower Extremity Arteries (ICD-10-PCS; 2020-03-05)
PROC: 5A1D70Z Performance of Urinary Filtration, Intermittent, Less than 6 Hours Per Day (ICD-10-PCS; principal; 2020-03-06)
DX: E11.40 Type 2 diabetes mellitus with diabetic neuropathy, unspecified (principal); N18.6 End stage renal disease; I12.0 Hypertensive chronic kidney disease with stage 5 chronic kidney disease or end stage renal disease; E11.51 Type 2 diabetes mellitus with diabetic peripheral angiopathy without gangrene; R53.81 Other malaise; Z66 Do not resuscitate; D63.1 Anemia in chronic kidney disease; E11.22 Type 2 diabetes mellitus with diabetic chronic kidney disease; Z79.4 Long term (current) use of insulin; Z79.82 Long term (current) use of aspirin; Z79.899 Other long term (current) drug therapy; Z90.49 Acquired absence of other specified parts of digestive tract; Z87.890 Personal history of sex reassignment; Z99.2 Dependence on renal dialysis
CPT/HCPCS: 36415; 36416; 70450; 70496; 70498; 70551; 71045; 80048; 80053; 82533; 82550; 82553; 82607; 82747; 83605; 83880; 84443; 84484; 85025; 87635; 90935; 93005; 93306; 93922; 96372; G0257; G0378; J1644; J1815; Q5105; Q9967; U0003

== ENCOUNTER 2020-05-17 21:43 | Emergency (ER) | payer MEDICARE ==
--- NOTE | 2020-05-17 23:58 | RAD ---
LEFT RIB SERIES WITH A PA VIEW OF THE CHEST INDICATION: Fall with left-sided rib pain COMPARISON: None. FINDINGS: Chest radiograph: The lungs are clear. Heart size is normal. No pleural effusion or pneumothorax is d emonstrated. Left Ribs: No displaced left-sided rib fracture is demonstrated. IMPRESSION: No displaced left-sided rib fracture
[2020-05-18] MEDS ORDERED: Morphine 10 MG/ML VIAL ONE (00:10)
== END 2020-05-18 00:17 | disposition home or self-care (01) ==
LOC: ERS 21:43
DX: S30.1XXA Contusion of abdominal wall, initial encounter (principal); E11.9 Type 2 diabetes mellitus without complications; I10 Essential (primary) hypertension; F17.210 Nicotine dependence, cigarettes, uncomplicated; Z79.899 Other long term (current) drug therapy; W18.30XA Fall on same level, unspecified, initial encounter
CPT/HCPCS: 96372; J2270

== ENCOUNTER 2020-05-21 22:40 | Inpatient (IN) | payer MEDICARE ==
[2020-05-21] MEDS ORDERED: Labetalol HCl 100 MG/20 ML VIAL ONE (23:31)
[2020-05-21 23:45] LABS: #Eosinphils 0.1 thou/uL (0.0-0.7); #Lymphocytes 0.9 thou/uL (1.20-3.40); #Monocytes 0.7 thou/uL (0.11-0.59); #Neutrophils 6.4 thou/uL (1.40-6.50); %Basophils 0.3 % (0.0-1.0); %Eosinophils 1.8 % (0.0-10.0); %Lymphocytes 10.8 % (21.0-51.0); %Monocytes 8.4 % (0.0-10.0); %Neutrophils 78.6 % (42.0-75.0); Hemoglobin 10.5 g/dL (14.0-18.0); Mean Corpuscular HGB CONC 33.6 g/dL (32.0-36.0); Mean Corpuscular Hemoglobin 33.7 pg (27.0-31.0); Mean Platelet Volume 8.4 fL (7.4-10.4); Platelet Count 206 thou/uL (130-400); RBC Distribution Width 13.5 % (11.5-14.5); Red Blood Cell (RBC) Count 3.11 mill/uL (4.70-6.10); White Blood Cell (WBC) Count 8.1 thou/uL (4.8-10.8)
[2020-05-22 00:06] LABS: ALT (SGPT) 9 U/L (8-55); AST (SGOT) 11 U/L (5-34); Albumin 3.8 g/dL (3.4-4.8); Alkaline Phosphatase 79 U/L (40-110); Anion Gap 29 mmol/L (10-20); BUN (Urea Nitrogen) 120 mg/dL (8.4-25.7); Bilirubin, Total 0.4 mg/dL (0.2-1.2); Calc. Creatinine Clearance 0 mL/min (70-130); Calcium 8.8 mg/dL (7.8-10.44); Carbon Dioxide 19 mmol/L (23-31); Chloride 93 mmol/L (98-107); Globulin 2.9 g/dL (2.4-3.5); Glucose 87 mg/dL (83-110); Lipase 14 U/L (8-78); Protein, Total 6.7 g/dL (5.8-8.1); Sodium 133 mmol/L (136-145)
[2020-05-22 00:11] LABS: Potassium 8.1 mmol/L (3.5-5.1)
[2020-05-22] MEDS ORDERED: Dextrose 50% Abboject 50 ML SYRINGE ONE (00:26)
[2020-05-22] MEDS ORDERED: Insulin Regular 300 UNITS/3 ML VIAL ONE (00:26)
[2020-05-22] MEDS ORDERED: Sodium Bicarb 50 MEQ/50 ML Abboject 8.4% SYRINGE ONE (00:26)
[2020-05-22] MEDS ORDERED: Calcium Gluc 4.6 MEQ/10 ML (100 MG/ML) ONE (00:26)
[2020-05-22] MEDS ORDERED: Sodium Bicarb 50 MEQ/50 ML VIAL ONE (00:28)
[2020-05-22 02:23] LABS: Anion Gap 27 mmol/L (10-20); BUN (Urea Nitrogen) 122 mg/dL (8.4-25.7); Calc. Creatinine Clearance 0 mL/min (70-130); Calcium 8.7 mg/dL (7.8-10.44); Carbon Dioxide 21 mmol/L (23-31); Chloride 95 mmol/L (98-107); Glucose 64 mg/dL (83-110); Sodium 138 mmol/L (136-145)
[2020-05-22] MEDS ORDERED: Ondansetron ODT 4 MG TAB PO PRN (08:58)
[2020-05-22] MEDS ORDERED: Ondansetron PF 4 MG/2 ML Vial IVP PRN (08:58)
[2020-05-22] MEDS ORDERED: Dextrose 50% Abboject 50 ML SYRINGE SLOW IVP PRN (09:02)
[2020-05-22] MEDS ORDERED: Dextrose 5% in Water 1,000 ML IV PRN (09:02)
[2020-05-22] MEDS ORDERED: HumaLOG 300 UNITS/3 ML VIAL SC PRN (09:02)
--- NOTE | 2020-05-22 09:26 | PDOC.HHP ---
Hospitalist HPI - History of Present Illness Weakness History of Present Illness: This is a 74-year-old male patient with a history of ESRD and intermittently misses dialysis, Type 2 diabetes, hypertension who was brought in by his nephew on account of weakness. At the time of my evaluation patient was in the room alone without any familyI gave most of the history. Apparently his nephew came to find him at home week and activated EMS. Patient notes that he is not weak but just having pain in his left flank after he hit the doorknob earlier in the day. Apparently dismissed 3 episodes of dialysis and as expected his potassium was significantly elevated at 8.1 at the time of presentation. He was given Kayexalate, calcium gluconate, insulin with repeat potassium improving to 5.0. His catalyst supervisor Dr. Teixeira was was spoken to by the ED physician who said he would come to do dialysis in the morning. At the time of my evaluation patient was generally comfortable but did complain of thirst as she was placed on n.p.o. He also has mild tremors in his last records when checked was 64. Otherwise denied any chest pain shortness of breath nausea vomiting. He complained of ongoing mild right flank pain. He also denied any abdominal pain Hospitalist ROS - Review of Systems Constitutional: denies: fever, chills, sweats Cardiovascular: denies: chest pain, palpitations, orthopnea Gastrointestinal: reports: other (Mild left flank pain). denies: nausea, vomiting, abdominal pain Neurological: denies: weakness, numbness, incoordination, change in speech Hospitalist History - Past Medical History Cardiac: reports: HTN Endocrine: reports: Diabetes Other Medical History: ESRD - Past Surgical History Past Surgical History: reports: Appendectomy Other Surgical History: Fistula surgery - Family History Family History: reports: no pertinent history - Social History Living Situation: Alone Activity level: uses cane/walker - Exam General Appearance: awake alert ENT: normocephalic atraumatic, moist mucosa Heart: RRR, no murmur, no gallops, no rubs Respiratory: CTAB, no wheezes, no rales, no ronchi Gastrointestinal: soft, non-tender (Mild flank tenderness. No rebound tenderness or guarding.), non-distended, normal bowel sounds Extremities: no cyanosis, no clubbing, 1+ LE edema Neurological: cranial nerve grossly intact, no weakness Psychiatric: normal affect, A&O x 3 Hospitalist Results - Labs Result Diagrams: 05/21/20 23:37 05/22/20 01:56 Lab results: WBC 8.1 thou/uL (4.8-10.8) 05/21/20 23:37 Hgb 10.5 g/dL (14.0-18.0) L 05/21/20 23:37 Hct 31.1 % (42.0-52.0) L 05/21/20 23:37 MCV 100.0 fL (78.0-98.0) H 05/21/20 23:37 Plt Count 206 thou/uL (130-400) 05/21/20 23:37 Neutrophils % 78.6 % (42.0-75.0) H 05/21/20 23:37 Sodium 138 mmol/L (136-145) 05/22/20 01:56 Potassium 5.0 mmol/L (3.5-5.1) 05/22/20 01:56 Chloride 95 mmol/L (98-107) L 05/22/20 01:56 Carbon Dioxide 21 mmol/L (23-31) L 05/22/20 01:56 BUN 122 mg/dL (8.4-25.7) H 05/22/20 01:56 Creatinine 17.26 mg/dL (0.7-1.3) H 05/22/20 01:56 Glucose 64 mg/dL (83-110) L 05/22/20 01:56 Calcium 8.7 mg/dL (7.8-10.44) 05/22/20 01:56 Total Bilirubin 0.4 mg/dL (0.2-1.2) 05/21/20 23:37 AST 11 U/L (5-34) 05/21/20 23:37 ALT 9 U/L (8-55) 05/21/20 23:37 Alkaline Phosphatase 79 U/L (40-110) 05/21/20 23:37 Serum Total Protein 6.7 g/dL (5.8-8.1) 05/21/20 23:37 Albumin 3.8 g/dL (3.4-4.8) 05/21/20 23:37 Lipase 14 U/L (8-78) 05/21/20 23:37 Hospitalist H&P A/P - Plan Plan: This is a 74-year-old male patient history of diabetes mellitus and end-stage renal disease who is known to intermittently peristalsis. Admitted past 3 dialysis. Presenting today with hyperkalemia of 8.1 which has improved to 5.0 with initial treatment. We will arrange for dialysis. His catalyst supervisor has been informed. Hyperkalemia Potassium 8.1 likely secondary to missed dialysis. Potassium improved to 5.0 after insulin, dextrose, calcium gluconate and Kayexalate. We will go ahead with dialysis today. Continue BMP monitoring. ESRD Treatment as above. Diabetes mellitus Blood glucose low at 64 Correctional insulin glucose monitoring. Hypertension Home BP medications. Appreciate nephrology input. CODE STATUSDNR. VT prophylaxis Heparin
[2020-05-22] MEDS: Heparin 5,000 UNITS/ML VIAL SC SCH ×3 (10:09→23:05)
--- NOTE | 2020-05-22 12:59 | CON ---
DATE OF CONSULTATION: 05/22/2020 HISTORY OF PRESENT ILLNESS: Mr. Carranza is a 74-year-old male with ESRD currently on maintenance hemodialysis. He went to the ER complaining of generalized weakness. He has been having chronic low back pain exacerbation, for that reason has not reported to the dialysis for almost a week. We are being consulted for management of his ESRD. He was initially noted to be hyperkalemic. This was addressed with medications and the most recent potassium has improved from a value of 8.1 to a most recent value of 5.0. Of note, creatinine is noted at 17.26. REVIEW OF SYSTEMS: Positive for chronic low back pain. No nausea. No vomiting. Decreased appetite. Decreased energy level. No headache. No diplopia. No syncopal episode. No sore throat. No productive cough. No fever or chills. No dysuria. No urinary frequency. No diarrhea. No constipation. HOME MEDICATIONS: Includes the following; 1. Tramadol 50 mg p.o. b.i.d. 2. Hydralazine 50 mg p.o. b.i.d. 3. Insulin NPH 14 units subcu b.i.d. - p.r.n. 4. Aspirin 325 mg p.o. b.i.d. PAST MEDICAL HISTORY: 1. ESRD from diabetic nephropathy. 2. Type 2 diabetes mellitus. 3. Hypertension. 4. Chronic low back pain. PAST SURGICAL HISTORY: Status post AV fistula placement, status post cuffed hemodialysis catheter placement, and status post cardiac cath - normal EF - normal finding. SOCIAL HISTORY: The patient lives alone. He still smoke several cigarettes a day. No alcohol. No IV drug use. Sedentary lifestyle. ALLERGIES: NONE. TRAUMA: None. IMMUNIZATIONS: Up-to-date. HOSPITALIZATIONS: Please see past medical history. PHYSICAL EXAMINATION: VITAL SIGNS: Blood pressure is 178/87, heart rate 67, respiratory rate 21, temperature 98.7, and O2 saturation 94%. GENERAL: The patient is awake, alert, and comfortable, not in overt distress. SKIN: Adequate turgor. HEENT: The patient has a pinkish conjunctivae. Anicteric sclerae. NECK: No neck mass. No carotid bruits. No JVD. CHEST: No deformities. LUNGS: Clear breath sounds. No wheezing. No crackles. HEART: Normal sinus rhythm. No murmur. No gallops. No rubs. ABDOMEN: Globular, soft, and nontender. No masses. EXTREMITIES: No edema. No deformities. NEUROLOGIC: Moving all extremities. No tremors. No asterixis. No ataxia. LABORATORY DATA: Laboratories of May 21, 2020, white count 8.1 and hemoglobin 10.5. May 22, 2020; sodium 138, potassium 5, chloride 95, carbon dioxide 21, BUN 122, creatinine 17.26, glucose 64, and calcium 8.7. May 21, 2020, potassium was 8.1. ASSESSMENT AND PLAN: 1. Hyperkalemia - much improved with insulin, Kayexalate, and calcium gluconate. The patient is scheduled for his regular dialysis today. 2. End-stage renal disease - the patient has missed his dialysis for the last one week. Our plan is to do a 4-hour hemodialysis today with fluid removal as tolerated by the patient. Review of the last Kt/V suggests he is adequately dialyzed with the current dialysis regimen. Addendum: patient requested to do only a 3 hour hemodialysis today. Job ID: [id number] [facility]
[2020-05-22 22:54] VITALS: BMI 30.2
--- NOTE | 2020-05-23 00:03 | PDOC.FMACP ---
Advance Care Planning - Note Summary: Advanced Care Planning was discussed. He is DNAR. Surrogate decision maker is his nephew Dillon Madsen
[2020-05-23] MEDS ORDERED: traMADol HCl 50 MG TAB PO PRN (01:50)
[2020-05-23] MEDS ORDERED: hydrALAZINE 20 MG/ML VIAL SLOW IVP SCH (02:00)
[2020-05-23 04:37] LABS: #Eosinphils 0.1 thou/uL (0.0-0.7); #Lymphocytes 0.8 thou/uL (1.20-3.40); #Monocytes 0.8 thou/uL (0.11-0.59); #Neutrophils 4.4 thou/uL (1.40-6.50); %Basophils 0.3 % (0.0-1.0); %Lymphocytes 12.3 % (21.0-51.0); %Neutrophils 72.4 % (42.0-75.0); Hemoglobin 9.7 g/dL (14.0-18.0); Mean Corpuscular HGB CONC 33.7 g/dL (32.0-36.0); Mean Corpuscular Hemoglobin 34.2 pg (27.0-31.0); Mean Platelet Volume 8.4 fL (7.4-10.4); Platelet Count 196 thou/uL (130-400); RBC Distribution Width 13.4 % (11.5-14.5); Red Blood Cell (RBC) Count 2.82 mill/uL (4.70-6.10); White Blood Cell (WBC) Count 6.1 thou/uL (4.8-10.8)
[2020-05-23 05:01] LABS: Anion Gap 22 mmol/L (10-20); BUN (Urea Nitrogen) 55 mg/dL (8.4-25.7); Calc. Creatinine Clearance 8 mL/min (70-130); Calcium 8.4 mg/dL (7.8-10.44); Carbon Dioxide 24 mmol/L (23-31); Chloride 97 mmol/L (98-107); Glucose 116 mg/dL (83-110); Potassium 4.3 mmol/L (3.5-5.1); Sodium 139 mmol/L (136-145)
[2020-05-23] MEDS ORDERED: EPOETIN ALFA-EPBX (ESRD) 4,000 UNIT/ML VIAL SC SCH (09:30)
[2020-05-23] MEDS ORDERED: Acetaminophen 325 MG TAB PO PRN (09:42)
--- NOTE | 2020-05-23 09:42 | PRG ---
DATE OF SERVICE: 05/23/2020 SUBJECTIVE: Mr. Carranza is a 74-year-old male with ESRD, was admitted for hyperkalemia, initially presented today with chronic low back pain. He had a missed dialysis session of x3. Potassium was initially noted to be more than 8. This subsequently went down. He did receive dialysis yesterday and his most recent creatinine is now noted at 4.3. The patient voices no new complaints today. No complaints of chest pain or shortness of breath. OBJECTIVE: VITAL SIGNS: Blood pressure 169/77, heart rate 75, respiratory rate 19, temperature 98.2, O2 saturation 95% on room air. GENERAL: Awake, alert, comfortable, not in overt distress. SKIN: Adequate turgor. HEENT: He has slightly pale conjunctivae. Anicteric sclerae. NECK: No neck mass. No carotid bruits. No JVD. CHEST: No deformities. LUNGS: Clear breath sounds. HEART: Normal sinus rhythm. No murmur. No gallops. No rubs. ABDOMEN: Globular, soft, nontender. No masses. EXTREMITIES: No edema. No deformities. MEDICATIONS: Medications of May 23, 2020, were reviewed. LABORATORY DATA: Laboratories of May 23, 2020; white count 6.1, hemoglobin 9.7. Sodium 139, potassium 4.3, chloride 97, carbon dioxide 24, BUN 55, creatinine 11.3, glucose 106, calcium is 8.4. ASSESSMENT AND PLAN: 1. End-stage renal disease - the patient underwent hemodialysis x3 hours per his request. He tolerated said treatment. Fluid removal was done. 2. Hyperkalemia, currently resolved. Improved with medications and dialysis. 3. Anemia. We will resume back weekly Epogen 7500 units subcu every week. 4. Overall agree with current management. Job ID: [id number]
[2020-05-23] MEDS: Amlodipine 10 MG TAB PO SCH (09:44)
[2020-05-23] MEDS: hydrALAZINE 25 MG TAB PO SCH ×2 (09:44→20:59)
[2020-05-23] MEDS: Heparin 5,000 UNITS/ML VIAL SC SCH ×3 (09:46→20:59)
--- NOTE | 2020-05-23 13:48 | CT ---
CT ABDOMEN AND PELVIS WITHOUT IV CONTRAST: Date: 05/23/2020 INDICATION: Abdominal pain. Left upper quadrant and flank pain with vomiting. No comparison. FINDINGS: Lung bases show mild chronic parenchymal change and atelectasis. The liver, spleen, and pancreas appear unremarkable. There are several small calcified gallstones seen within a mildly contracted gallbladder. Biliary enoc t unremarkable. Adrenal glands normal. Kidneys show cortical thinning and perinephric stranding. No hydronephrosis. Ureters are normal calib er. No evidence of ureteral calculus. The urinary bladder is mildly distended and unremarkable. Small bowel loops normal caliber. Appendix not definitely identified. No evidence of appendicitis. Co alistair unremarkable. Aorta normal caliber. Images through the pelvis show prostatic hypertrophy impinging on the floor of the bladder. No adenop athy or free fluid. Prominent hypertrophic spurring from the lumbar spine with degenerative disc changes at all visualize d levels. There is severe central canal stenosis at L3-4 and L4-5 levels of the lumbar spine. IMPRESSION: 1. Cholelithiasis. No significant pericholecystic edema. 2. Otherwise no acute intra-abdominal process identified. POS: AGW
--- NOTE | 2020-05-23 15:20 | PDOC.HOSPP ---
- Subjective Encounter Date: 05/23/20 Encounter Time: 10:00 Subjective: Patient was seen and examined in bed. He complained of an episode of nausea and worsening pain in his left flank and left upper quadrant. Also planing of weakness in his lower limbs which have been chronic He did bruise his left flank on the doorknob he said, prior to admission. Otherwise he denies any chest pain shortness of breath or diarrhea - Objective Vital Signs & Weight: Vital Signs (12 hours) Temp Pulse Resp BP Pulse Ox 05/23/20 11:47 98.1 F 95 19 169/77 H 94 L 05/23/20 09:44 75 05/23/20 08:00 98.2 F 75 19 169/77 H 95 05/23/20 04:00 98.9 F 77 20 135/63 96 Weight Weight 201 lb Result Diagrams: 05/23/20 04:13 05/23/20 04:13 Additional Labs: Accuchecks 05/23/20 05/23/20 11:00 05:50 POC Glucose 111 H 106 H Hospitalist ROS - Medication Medications: Active Medications Generic Name Dose Route Start Last Admin Trade Name Freq PRN Reason Stop Dose Admin Amlodipine Besylate 10 mg 05/23/20 09:00 05/23/20 09:44 Amlodipine 10 Mg Tab PO 10 mg DAILY EDGAR Administration Epoetin Jc-epbx 7,500 unit 05/23/20 09:30 05/23/20 09:44 Epoetin Jc-Epbx (Esrd) 4,000 Unit/Ml Vial SC 7,500 unit Q7D EDGAR Administration Heparin Sodium (Porcine) 5,000 units 05/22/20 09:00 05/23/20 15:03 Heparin 5,000 Units/Ml Vial SC Not Given TID EDGAR Hydralazine HCl 125 mg 05/23/20 09:00 05/23/20 09:44 Hydralazine 25 Mg Tab PO 125 mg BID EDGAR Administration Ondansetron HCl 4 mg 05/22/20 08:58 05/23/20 09:40 Ondansetron Pf 4 Mg/2 Ml Vial IVP 4 mg Q6H PRN Administration Nausea/Vomiting Tramadol HCl 50 mg 05/23/20 01:50 05/23/20 02:24 Tramadol Hcl 50 Mg Tab PO 50 mg Q12H PRN Administration Moderate Pain (4-6) - Exam General Appearance: awake alert ENT: normocephalic atraumatic, no oropharyngeal lesions Heart: RRR, no murmur, no gallops, no rubs Respiratory: CTAB, no wheezes, no rales, no ronchi Gastrointestinal: soft Gastrointestinal - other findings: Right flank bruise, tenderness right upper quadrant and right flank. Extremities: no cyanosis, no clubbing, no edema Neurological: cranial nerve grossly intact, normal sensation to touch Psychiatric: normal affect, normal behavior, A&O x 3 Hosp A/P - Plan This is a 74-year-old male patient history of diabetes mellitus and end-stage renal disease who is known to intermittently peristalsis. He missed past 3 dialysis sessions. Presenting with hyperkalemia of 8.1 which has improved to 5.0 with initial treatment. He received dialysis a day ago with correction of his potassium and electrol ytes. Today complains of ongoing worsening right flank and right upper quadrant pain with an episode of vomiting. We will evaluate start with CT and plan based on results. Left upper quadrant pain Bruise noted on left flank with mild right upper quadrant tenderness. Given also new vomiting we will do a CT scan. Reevaluate Hyperkalemia Resolved Dialysis a day ago. Monitor BMP Generalized weakness Complains of ongoing worsening weakness of his lower limbs. This has been previously significant evaluated if no etiology. We will have PT evaluation and recommendations for possible placement. ESRD Treatment as above. Diabetes mellitus Blood glucose control Continue monitoring Correctional dose insulin Hypertension Home BP medications. Appreciate nephrology input. CODE STATUSDNR. VT prophylaxis Heparin
[2020-05-24 08:23] LABS: #Eosinphils 0.1 thou/uL (0.0-0.7); #Lymphocytes 1.3 thou/uL (1.20-3.40); #Monocytes 0.6 thou/uL (0.11-0.59); #Neutrophils 3.6 thou/uL (1.40-6.50); %Basophils 0.2 % (0.0-1.0); %Eosinophils 2.5 % (0.0-10.0); %Lymphocytes 23.1 % (21.0-51.0); %Monocytes 10.4 % (0.0-10.0); %Neutrophils 63.9 % (42.0-75.0); Hemoglobin 10.7 g/dL (14.0-18.0); Mean Corpuscular HGB CONC 34.2 g/dL (32.0-36.0); Mean Platelet Volume 8.2 fL (7.4-10.4); Platelet Count 194 thou/uL (130-400); RBC Distribution Width 13.2 % (11.5-14.5); Red Blood Cell (RBC) Count 3.05 mill/uL (4.70-6.10); White Blood Cell (WBC) Count 5.6 thou/uL (4.8-10.8)
[2020-05-24 08:43] LABS: Anion Gap 20 mmol/L (10-20); BUN (Urea Nitrogen) 61 mg/dL (8.4-25.7); Calc. Creatinine Clearance 6 mL/min (70-130); Calcium 8.7 mg/dL (7.8-10.44); Carbon Dioxide 26 mmol/L (23-31); Chloride 96 mmol/L (98-107); Glucose 122 mg/dL (83-110); Potassium 4.4 mmol/L (3.5-5.1); Sodium 138 mmol/L (136-145)
[2020-05-24] MEDS: Heparin 5,000 UNITS/ML VIAL SC SCH (08:45)
[2020-05-24] MEDS: Amlodipine 10 MG TAB PO SCH (08:46)
[2020-05-24] MEDS: hydrALAZINE 25 MG TAB PO SCH (08:46)
--- NOTE | 2020-05-24 09:14 | PRG ---
DATE OF SERVICE: 05/24/2020 SUBJECTIVE: Mr. Carranza is a 74-year-old male with ESRD and currently on maintenance hemodialysis. He complains of some abdominal pain. CAT scan of the abdomen was done yesterday, which showed no acute intraabdominal abnormality. Findings of DJD on the lumbosacral spine were noted. No other complaints today. OBJECTIVE: VITAL SIGNS: Blood pressure is 169/73, heart rate 65, respiratory rate 14, temperature 98.5, and O2 saturation 94%. GENERAL: The patient is sleeping, arousable, and comfortable, not in distress. SKIN: Adequate turgor. HEENT: He has a pinkish conjunctivae. Anicteric sclerae. NECK: No neck mass. No carotid bruits. No JVD. CHEST: No deformities. LUNGS: Clear breath sounds. HEART: Normal sinus rhythm. No murmur. No gallops. No rubs. ABDOMEN: Globular, soft, and nontender. No masses. EXTREMITIES: No edema. No deformities. MEDICATIONS: Medications of May 24, 2020, reviewed. LABORATORY DATA: Laboratories of May 24, 2020, white count 5.6 and hemoglobin 10.7. Sodium 139, potassium 4.3, chloride 97, carbon dioxide 24, BUN 55, creatinine 11.3, and calcium 8.4. May 24, 2020, glucose 111. ASSESSMENT AND PLAN: 1. Chronic low back pain - secondary to degenerative joint disease. Continue supportive care. 2. Anemia, on weekly Epogen. 3. End-stage renal disease, stable. Continue Sunday, , and Sunday hemodialysis regimen. There is no indication for any emergent dialysis with this patient today. Recheck CBC and basic metabolic in a.m. Job ID: [id number]
[2020-05-24 11:21] VITALS: TEMP 98.1
[2020-05-24 12:02] VITALS: BP 161/72
--- NOTE | 2020-05-24 20:12 | PDOC.HOSPP ---
- Objective Vital Signs & Weight: Vital Signs (12 hours) Temp Pulse Pulse Pulse Resp BP BP 05/24/20 12:01 69 05/24/20 11:21 98.1 F 77 15 05/24/20 09:22 76 81 191/81 H 186/79 H BP Pulse Ox 05/24/20 12:01 161/72 H 05/24/20 11:21 184/77 H 94 L 05/24/20 09:22 Weight Weight 202 lb I&O: 05/23/20 05/24/20 05/25/20 06:59 06:59 06:59 Intake Total 1440 Output Total 175 Balance 1265 Result Diagrams: 05/24/20 07:56 05/24/20 07:56 Additional Labs: Accuchecks 05/24/20 05/24/20 11:09 05:54 POC Glucose 127 H 111 H Hosp A/P - Plan This is a 74-year-old male patient history of diabetes mellitus and end-stage renal disease who is known to intermittently peristalsis. He missed past 3 dialysis sessions. Presenting with hyperkalemia of 8.1 which has improved to 5.0 with initial treatment. He received dialysis a day ago with correction of his potassium and cruz ctrolytes. Today complains of ongoing worsening right flank and right upper quadrant pain with an episode of vomiting. We will evaluate start with CT and plan based on results. Left upper quadrant pain Bruise noted on left flank with mild right upper quadrant tenderness. Given also new vomiting we will do a CT scan. Reevaluate Hyperkalemia Resolved Dialysis a day ago. Monitor BMP Generalized weakness Complains of ongoing worsening weakness of his lower limbs. This has been previously significant evaluated if no etiology. We will have PT evaluation and recommendations for possible placement. ESRD Treatment as above. Diabetes mellitus Blood glucose control Continue monitoring Correctional dose insulin Hypertension Home BP medications. Appreciate nephrology input. CODE STATUSDNR. VT prophylaxis Heparin
--- NOTE | 2020-05-24 20:16 | PDOC.DS.DS ---
Provider - Provider Date of Admission: 05/22/20 01:19 Date of Discharge: 05/24/20 Admitting Provider: Girma Galeas DO Primary Care Physician: Micha Morales MD Course - Hospital Course Pertinent Studies: This is a 74-year-old male patient for history of ESRD nonadherent to his dialysis schedule presents with worsening weakness. Was brought in by his nephew. He admits dialysis for a whole week prior to presentation. He had severe hyperkalemia 8.1 On presentation nephrology was consulted and emergency dialysis was scheduled On the second day of presentation while waiting to discharge patient started feeling nauseous with left upper quadrant and flank abdominal pain. He had complained earlier of bruise on his side on abdominal wall at home. CT abdomen was negative for any intra-abdominal events. He was monitored for 1 more day and discharged to follow-up with nephrology and dialysis Resuscitation Status: 05/22/20 08:58 Resuscitation Status Routine Resuscitation Status: DNAR: NO Resuscitation Discussed with: Patients wishes. He has decision making capacity - Labs Lab Results: 05/24/20 07:56 05/24/20 07:56 Abnormal Lab Results - Last 48 hrs 05/23/20 04:13: Chloride 97 L, Anion Gap 22 H, BUN 55 H, Creatinine 11.30 H 05/23/20 04:13: RBC 2.82 L, Hgb 9.7 L, Hct 28.6 L, MCV 102.0 H, MCH 34.2 H, Lymphocytes % 12.3 L, Monocytes % 13.0 H, Lymphocytes # 0.8 L, Monocytes # 0.8 H 05/24/20 07:56: Chloride 96 L, BUN 61 H, Creatinine 13.40 H 05/24/20 07:56: RBC 3.05 L, Hgb 10.7 L, Hct 31.2 L, MCV 102.0 H, MCH 35.0 H, Mon ocytes % 10.4 H, Monocytes # 0.6 H - Physical Exam Vitals: Vital Signs (12 hours) Temp Pulse Pulse Pulse Resp BP BP 05/24/20 12:01 69 05/24/20 11:21 98.1 F 77 15 05/24/20 09:22 76 81 191/81 H 186/79 H BP Pulse Ox 05/24/20 12:01 161/72 H 05/24/20 11:21 184/77 H 94 L 05/24/20 09:22 Weight Weight 202 lb Physical Exam: The patient was seen and examined on the day of discharge. General: In no acute distress. CVS: S1-S2 present no murmurs gallops or rubs. RS: Air entry adequate bilaterally. Abdomen: Bruise on left flank with mild tenderness. Extremities: No edema Problem - Discharge Plan Assessment: ESRD Nonadherent to dialysis Severe hyperkalemia Resolved with dialysis Encourage not to miss dialysis. Plan - Discharge Medications Home Medications: Medication Instructions Recorded Confirmed Type hydrALAZINE HCl [Hydralazine HCl] 125 mg PO BID 03/01/20 05/22/20 History traMADol HCl [Tramadol HCl] 50 mg PO Q4HR PRN 03/01/20 05/22/20 History Amlodipine Besylate [amLODIPine 10 mg PO DAILY 05/22/20 05/22/20 History Besylate] Allergies: No Known Allergies Allergy (Verified 03/01/20 23:27) - Discharge Instructions Activity:: Activity as Tolerated Nourishment:: Other Additional Dietary Instructions:: Renal - Follow up Plan Referrals: Micha Morales MD [Primary Care Provider] - 7 Days (Polease call to schedule a follow up appointment in 7 days.) Albert Teixeira MD [Active] - 14 Days (Please call to schedule a follow up appointment in 1-2 weeks.) Disposition: HOME Quality - Care Measures CORE MEASURES:: N/A
== END 2020-05-24 13:20 | disposition home or self-care (01) | DRG 640 ==
LOC: ERS 22:40 → ERHOLD 05-22 01:19 → 2NO 05-22 21:01
PROVIDERS: ADMIT Family Medicine; ATTEND Family Medicine
PROC: 5A1D70Z Performance of Urinary Filtration, Intermittent, Less than 6 Hours Per Day (ICD-10-PCS; principal; 2020-05-22)
DX: E87.5 Hyperkalemia (principal); N18.6 End stage renal disease; I12.0 Hypertensive chronic kidney disease with stage 5 chronic kidney disease or end stage renal disease; Z66 Do not resuscitate; Z20.828 Contact with and (suspected) exposure to other viral communicable diseases; E11.22 Type 2 diabetes mellitus with diabetic chronic kidney disease; M54.5 Low back pain; G89.29 Other chronic pain; F17.210 Nicotine dependence, cigarettes, uncomplicated; D63.1 Anemia in chronic kidney disease; R19.2 Visible peristalsis; M19.90 Unspecified osteoarthritis, unspecified site; Z91.15 Patient's noncompliance with renal dialysis; Z90.49 Acquired absence of other specified parts of digestive tract; Z79.4 Long term (current) use of insulin; Z91.14 Patient's other noncompliance with medication regimen; Z79.899 Other long term (current) drug therapy
CPT/HCPCS: 36415; 36416; 74176; 80048; 80053; 83690; 85025; 90935; 93005; G0257; J0360; J1644; J1815; J2001; J2405; Q5105

== ENCOUNTER 2021-05-18 09:29 | Outpatient (CLI) | payer MEDICARE | END 2021-05-18 09:30 | disposition home or self-care (01) | LOC: BICRAD 09:29 | PROVIDERS: ATTEND Internal Medicine Nephrology | DX: M54.50 Low back pain, unspecified (principal) | CPT/HCPCS: 72100 ==

== ENCOUNTER 2021-07-01 09:13 | Inpatient (IN) | payer MEDICARE ==
[2021-07-01 10:20] LABS: ALT (SGPT) 16 U/L (8-55); AST (SGOT) 15 U/L (5-34); Albumin 3.3 g/dL (3.4-4.8); Alkaline Phosphatase 49 U/L (40-110); Anion Gap 19 mmol/L (10-20); BUN (Urea Nitrogen) 57 mg/dL (8.4-25.7); Bilirubin, Total 0.7 mg/dL (0.2-1.2); Calc. Creatinine Clearance 0 mL/min (70-130); Calcium 8.6 mg/dL (7.8-10.44); Carbon Dioxide 21 mmol/L (23-31); Chloride 102 mmol/L (98-107); Globulin 2.7 g/dL (2.4-3.5); Glucose 102 mg/dL (83-110); Potassium 4.2 mmol/L (3.5-5.1); Sodium 138 mmol/L (136-145)
[2021-07-01 10:34] LABS: #Lymphocytes 0.3 thou/uL (1.20-3.40); #Monocytes 0.1 thou/uL (0.11-0.59); #Neutrophils 1.9 thou/uL (1.40-6.50); %Basophils 0.2 % (0.0-1.0); %Eosinophils 0.1 % (0.0-10.0); %Lymphocytes 11.8 % (21.0-51.0); %Monocytes 5.7 % (0.0-10.0); %Neutrophils 82.1 % (42.0-75.0); Hemoglobin 9.6 g/dL (14.0-18.0); MDiff Complete? YES; Mean Corpuscular HGB CONC 32.8 g/dL (32.0-36.0); Mean Corpuscular Hemoglobin 32.5 pg (27.0-31.0); Mean Platelet Volume 10.1 fL (7.4-10.4); Platelet Count 84 thou/uL (130-400); Platelet Morphology Comment Appears Decreased; Polychromasia SLIGHT = 2-3 cells (100X) (0-2/hpf); RBC Distribution Width 16.3 % (11.5-14.5); Red Blood Cell (RBC) Count 2.95 mill/uL (4.70-6.10); Schistocytes SLIGHT = 2-5 cells (100X) (0-1/hpf); Tear Drops SLIGHT = 2-5 cells (100X) (0-1/hpf); White Blood Cell (WBC) Count 2.3 thou/uL (4.8-10.8)
[2021-07-01] MEDS ORDERED: Iopamidol-370 76% 500 ML 1 ML ONE (14:34)
[2021-07-01 17:22] LABS: HBSAg Index 0.36 S/CO (0-0.99); Hep B Surf Ag Non-Reactive S/CO (NonReactive)
[2021-07-01 17:23] LABS: HBSAB Concentration 17.51 mIU/mL; Hep B Surf AB Reactive (NonReactive)
[2021-07-01 17:52] LABS: SARS-CoV-2 NAA Rapid Test DETECTED (NotDetected)
[2021-07-01] MEDS ORDERED: Ondansetron ODT 4 MG TAB SL PRN (22:15)
[2021-07-01] MEDS ORDERED: Acetaminophen 325 MG TAB PO PRN (22:15)
[2021-07-01] MEDS ORDERED: Ondansetron PF 4 MG/2 ML Vial IVP PRN (22:15)
[2021-07-01 22:59] VITALS: BMI 27.9
[2021-07-02] MEDS ORDERED: Midazolam HCl 2 mg/2 ml Vial ONE (00:20)
[2021-07-02] MEDS ORDERED: Ondansetron PF 4 MG/2 ML Vial IVP PRN (02:43)
[2021-07-02] MEDS ORDERED: Acetaminophen 325 MG TAB PO PRN (02:43)
[2021-07-02] MEDS ORDERED: Dextrose 5% in Water 1,000 ML IV PRN (02:48)
[2021-07-02] MEDS ORDERED: HumaLOG 300 UNITS/3 ML VIAL SC PRN (02:48)
[2021-07-02] MEDS ORDERED: Dextrose 50% Abboject 50 ML SYRINGE SLOW IVP PRN (02:48)
[2021-07-02] MEDS ORDERED: Bacitracin Zinc Ointment 30 gm TUBE ONE (07:45)
[2021-07-02] MEDS ORDERED: Thrombin 5000 UNITS/5 ML VIAL ONE (07:45)
[2021-07-02] MEDS ORDERED: Neomycin-Polymyxin 1 ML AMP ONE (07:45)
[2021-07-02] MEDS ORDERED: EPINEPHrine 1 MG/ML AMP ONE (07:46)
[2021-07-02] MEDS ORDERED: Bupivacaine PF 0.5% 30 ML VIAL ONE ×2 (07:46→07:47)
[2021-07-02 08:03] LABS: #Lymphocytes 0.3 thou/uL (1.20-3.40); #Monocytes 0.2 thou/uL (0.11-0.59); #Neutrophils 1.6 thou/uL (1.40-6.50); %Eosinophils 0.6 % (0.0-10.0); %Monocytes 8.5 % (0.0-10.0); Anion Gap 19 mmol/L (10-20); BUN (Urea Nitrogen) 30 mg/dL (8.4-25.7); Calc. Creatinine Clearance 8 mL/min (70-130); Calcium 8.2 mg/dL (7.8-10.44); Carbon Dioxide 24 mmol/L (23-31); Chloride 99 mmol/L (98-107); Glucose 99 mg/dL (83-110); Hemoglobin 9.1 g/dL (14.0-18.0); Mean Corpuscular HGB CONC 33.8 g/dL (32.0-36.0); Mean Corpuscular Hemoglobin 33.6 pg (27.0-31.0); Mean Corpuscular Volume 99.2 fL (78.0-98.0); Mean Platelet Volume 9.7 fL (7.4-10.4); Platelet Count 85 thou/uL (130-400); Potassium 3.9 mmol/L (3.5-5.1); RBC Distribution Width 16.2 % (11.5-14.5); Red Blood Cell (RBC) Count 2.72 mill/uL (4.70-6.10); Sodium 138 mmol/L (136-145); White Blood Cell (WBC) Count 2.1 thou/uL (4.8-10.8)
[2021-07-02] MEDS: Zinc Sulfate 220 MG CAP PO SCH (08:44)
[2021-07-02] MEDS: Ascorbic Acid 500 mg Chewable Tablet PO SCH (08:44)
[2021-07-02] MEDS: Dexamethasone 10 MG/ML VIAL SLOW IVP SCH (08:44)
[2021-07-02] MEDS: Famotidine 20 MG TAB PO SCH (08:44)
[2021-07-02] MEDS ORDERED: Labetalol HCl 100 MG/20 ML VIAL SLOW IVP PRN (09:26)
[2021-07-02] MEDS ORDERED: Cepastat Lozenges 1 LOZ PO PRN (09:26)
[2021-07-02] MEDS ORDERED: GUAIFENESIN SF SOLN 200 MG/10 ML UDCUP PO PRN (09:26)
[2021-07-02] MEDS ORDERED: hydrALAZINE 20 MG/ML VIAL SLOW IVP PRN (09:26)
[2021-07-02] MEDS ORDERED: hydrOXYzine 25 MG TAB PO PRN (09:26)
[2021-07-02] MEDS ORDERED: Bisacodyl 5 MG TAB PO PRN (09:26)
[2021-07-02] MEDS ORDERED: Sodium Chloride 0.65% Nasal 44 ML BOT EA NARE PRN (09:26)
[2021-07-02] MEDS: hydrALAZINE 25 MG TAB PO SCH ×2 (14:36→20:58)
[2021-07-03] MEDS: HumaLOG 300 UNITS/3 ML VIAL SC PRN ×3 (05:32→18:03)
[2021-07-03] MEDS: hydrALAZINE 25 MG TAB PO SCH ×3 (08:11→20:51)
[2021-07-03] MEDS: Zinc Sulfate 220 MG CAP PO SCH (08:11)
[2021-07-03] MEDS: Ascorbic Acid 500 mg Chewable Tablet PO SCH (08:11)
[2021-07-03] MEDS: Famotidine 20 MG TAB PO SCH (08:12)
[2021-07-03] MEDS: Dexamethasone 10 MG/ML VIAL SLOW IVP SCH (08:12)
[2021-07-03] MEDS ORDERED: Aspirin 325 mg Enteric Coated Tablet PO SCH (09:15)
[2021-07-03 10:26] LABS: #Lymphocytes 0.3 thou/uL (1.20-3.40); #Monocytes 0.2 thou/uL (0.11-0.59); #Neutrophils 3.2 thou/uL (1.40-6.50); %Eosinophils 0.5 % (0.0-10.0); %Lymphocytes 7.6 % (21.0-51.0); %Monocytes 5.8 % (0.0-10.0); Hemoglobin 9.7 g/dL (14.0-18.0); Mean Corpuscular HGB CONC 32.5 g/dL (32.0-36.0); Mean Corpuscular Hemoglobin 32.5 pg (27.0-31.0); Mean Platelet Volume 10.1 fL (7.4-10.4); Platelet Count 107 thou/uL (130-400); RBC Distribution Width 15.8 % (11.5-14.5); Red Blood Cell (RBC) Count 2.99 mill/uL (4.70-6.10); White Blood Cell (WBC) Count 3.7 thou/uL (4.8-10.8)
[2021-07-03 10:32] LABS: Anion Gap 22 mmol/L (10-20); BUN (Urea Nitrogen) 42 mg/dL (8.4-25.7); Calc. Creatinine Clearance 7 mL/min (70-130); Calcium 8.3 mg/dL (7.8-10.44); Carbon Dioxide 21 mmol/L (23-31); Chloride 97 mmol/L (98-107); Glucose 136 mg/dL (83-110); Potassium 4.2 mmol/L (3.5-5.1); Sodium 136 mmol/L (136-145)
[2021-07-04 08:28] LABS: Anion Gap 20 mmol/L (10-20); BUN (Urea Nitrogen) 56 mg/dL (8.4-25.7); Calc. Creatinine Clearance 6 mL/min (70-130); Calcium 8.1 mg/dL (7.8-10.44); Carbon Dioxide 22 mmol/L (23-31); Chloride 97 mmol/L (98-107); Glucose 141 mg/dL (83-110); Sodium 135 mmol/L (136-145)
[2021-07-04 08:38] LABS: #Lymphocytes 0.4 thou/uL (1.20-3.40); #Monocytes 0.4 thou/uL (0.11-0.59); #Neutrophils 2.9 thou/uL (1.40-6.50); %Basophils 0.1 % (0.0-1.0); %Eosinophils 0.6 % (0.0-10.0); %Lymphocytes 10.6 % (21.0-51.0); %Monocytes 9.8 % (0.0-10.0); %Neutrophils 78.9 % (42.0-75.0); Hemoglobin 9.3 g/dL (14.0-18.0); Mean Corpuscular HGB CONC 32.2 g/dL (32.0-36.0); Mean Corpuscular Hemoglobin 32.4 pg (27.0-31.0); Platelet Count 115 thou/uL (130-400); RBC Distribution Width 16.2 % (11.5-14.5); Red Blood Cell (RBC) Count 2.87 mill/uL (4.70-6.10); White Blood Cell (WBC) Count 3.7 thou/uL (4.8-10.8)
[2021-07-04 09:03] VITALS: BP 173/70; TEMP 97.5
[2021-07-04] MEDS: Dexamethasone 10 MG/ML VIAL SLOW IVP SCH (09:39)
[2021-07-04] MEDS: Zinc Sulfate 220 MG CAP PO SCH (09:40)
[2021-07-04] MEDS: Famotidine 20 MG TAB PO SCH (09:40)
[2021-07-04] MEDS: Ascorbic Acid 500 mg Chewable Tablet PO SCH (09:40)
[2021-07-04] MEDS: hydrALAZINE 25 MG TAB PO SCH ×2 (09:48→15:54)
[2021-07-04] MEDS: HumaLOG 300 UNITS/3 ML VIAL SC PRN ×2 (13:14→17:16)
== END 2021-07-04 18:36 | disposition home or self-care (01) | DRG 177 ==
LOC: ERS 09:13 → ERHOLD 15:14 → T4-B 15:32
PROVIDERS: ADMIT Family Medicine; ATTEND Family Medicine
PROC: 8E0ZXY6 Isolation (ICD-10-PCS; principal; 2021-07-01)
PROC: 3E0333Z Introduction of Anti-inflammatory into Peripheral Vein, Percutaneous Approach (ICD-10-PCS; 2021-07-02)
DX: U07.1 COVID-19 (principal); N18.6 End stage renal disease; J12.82 Pneumonia due to coronavirus disease 2019; J96.01 Acute respiratory failure with hypoxia; J91.8 Pleural effusion in other conditions classified elsewhere; I50.30 Unspecified diastolic (congestive) heart failure; D61.818 Other pancytopenia; I13.2 Hypertensive heart and chronic kidney disease with heart failure and with stage 5 chronic kidney disease, or end stage renal disease; M48.00 Spinal stenosis, site unspecified; E11.22 Type 2 diabetes mellitus with diabetic chronic kidney disease; G89.29 Other chronic pain; I16.0 Hypertensive urgency; M54.9 Dorsalgia, unspecified; Z79.899 Other long term (current) drug therapy; Z91.81 History of falling; Z99.2 Dependence on renal dialysis; Z90.49 Acquired absence of other specified parts of digestive tract; Z87.891 Personal history of nicotine dependence
CPT/HCPCS: 36415; 36416; 71045; 74177; 80048; 80053; 85025; 86140; 86706; 87340; 93005; J0171; J1100; J1815; J2250; Q9967; S0020; U0002

== ENCOUNTER 2021-08-12 13:02 | Outpatient (CLI) | payer MEDICARE ==
[2021-08-12 13:46] LABS: #Eosinphils 0.1 10x3/uL (0.0-0.5); #Monocytes 0.3 10x3/uL (0.0-1.1); #Neutrophils 3.6 10x3/uL (1.5-8.4); %Basophils 0.8 % (0.0-2.0); %Eosinophils 2.3 % (0.0-6.0); %Lymphocytes 14.7 % (18.0-47.0); %Monocytes 6.3 % (0.0-10.0); %Neutrophils 75.5 % (40.0-75.0); Hemoglobin 11.3 g/dL (13.5-17.5); Mean Corpuscular HGB CONC 32.6 g/dL (32.0-36.0); Mean Corpuscular Hemoglobin 32.8 pg (27.0-33.0); Mean Corpuscular Volume 100.9 fl (81.2-95.1); Mean Platelet Volume 10.5 fl (7.4-10.4); Platelet Count 142 10x3/uL (150-450); RBC Distribution Width 17.5 % (11.5-14.5); Red Blood Cell (RBC) Count 3.44 10x6/uL (4.32-5.72); White Blood Cell (WBC) Count 4.8 10x3/uL (3.5-10.5)
[2021-08-12 14:27] LABS: ALT (SGPT) 9 U/L (8-55); AST (SGOT) 9 U/L (5-34); Albumin 3.8 g/dL (3.4-4.8); Alkaline Phosphatase 69 U/L (40-110); Anion Gap 18 mmol/L (10-20); BUN (Urea Nitrogen) 59 mg/dL (8.4-25.7); Bilirubin, Total 0.9 mg/dL (0.2-1.2); Calc. Creatinine Clearance 0 mL/min (70-130); Calcium 9.1 mg/dL (7.8-10.44); Carbon Dioxide 25 mmol/L (23-31); Chloride 102 mmol/L (98-107); Globulin 3.1 g/dL (2.4-3.5); Glucose 170 mg/dL (83-110); Potassium 5.9 mmol/L (3.5-5.1); Protein, Total 6.9 g/dL (5.8-8.1); Sodium 139 mmol/L (136-145)
[2021-08-13 00:17] LABS: SARS-CoV-2 PCR by NAA Not Detected (NotDetected)
== END 2021-08-12 13:03 | disposition home or self-care (01) ==
LOC: LABBT 13:02
PROVIDERS: ATTEND Internal Medicine Cardiovascular Disease
DX: Z01.812 Encounter for preprocedural laboratory examination (principal); I25.10 Atherosclerotic heart disease of native coronary artery without angina pectoris; Z20.822 Contact with and (suspected) exposure to COVID-19
CPT/HCPCS: 80053; 85025; U0003; U0005

== ENCOUNTER 2021-08-17 06:23 | Day surgery (SDC) | payer MEDICARE ==
[2021-08-11 14:32] VITALS: BMI 29.5
[2021-08-17] MEDS ORDERED: Lidocaine 1% (PF) 30 ML VIAL ONE (06:39)
[2021-08-17] MEDS ORDERED: Verapamil 5 MG/2 ML VIAL ONE (06:46)
[2021-08-17] MEDS ORDERED: Heparin 10,000 UNITS/ 10 ML VIAL ONE (06:46)
[2021-08-17] MEDS ORDERED: Fentanyl 250 MCG/5 ML VIAL ONE (06:46)
[2021-08-17] MEDS ORDERED: Midazolam HCl 2 mg/2 ml Vial ONE (06:46)
[2021-08-17] MEDS ORDERED: Nitroglycerin 100MG/250ML BOT 0 ML ONE (06:47)
[2021-08-17 07:30] LABS: Cardiac Risk 2.5 (Less than 4.5)
[2021-08-17] MEDS ORDERED: hydrALAZINE 20 MG/ML VIAL ONE (07:58)
[2021-08-17] MEDS ORDERED: Iopamidol 370 76% 100 ML VIAL ONE (09:02)
== END 2021-08-17 12:05 | disposition home or self-care (01) ==
LOC: SDC 06:23
PROVIDERS: ATTEND Internal Medicine Cardiovascular Disease
PROC: 4A023N7 Measurement of Cardiac Sampling and Pressure, Left Heart, Percutaneous Approach (ICD-10-PCS; principal; 2021-08-17)
PROC: B2111ZZ Fluoroscopy of Multiple Coronary Arteries using Low Osmolar Contrast (ICD-10-PCS; 2021-08-17)
DX: I25.10 Atherosclerotic heart disease of native coronary artery without angina pectoris (principal); Z79.4 Long term (current) use of insulin; Z79.899 Other long term (current) drug therapy
CPT/HCPCS: 36416; 80061; 93458; 99152; 99153; J0360; J1644; J2001; J2250; J3010

== ENCOUNTER 2021-08-17 17:24 | Inpatient (IN) | payer MEDICARE ==
[2021-08-17] MEDS ORDERED: Fentanyl 100 MCG/2 ML VIAL ONE ×2 (18:54→19:16)
[2021-08-17 19:13] LABS: #Eosinphils 0.1 thou/uL (0.0-0.7); #Lymphocytes 0.5 thou/uL (1.20-3.40); #Monocytes 0.4 thou/uL (0.11-0.59); #Neutrophils 6.1 thou/uL (1.40-6.50); %Eosinophils 0.8 % (0.0-10.0); %Lymphocytes 7.4 % (21.0-51.0); %Monocytes 6.1 % (0.0-10.0); %Neutrophils 85.7 % (42.0-75.0); Hemoglobin 9.1 g/dL (14.0-18.0); Mean Corpuscular HGB CONC 32.5 g/dL (32.0-36.0); Mean Corpuscular Hemoglobin 34.2 pg (27.0-31.0); Mean Platelet Volume 8.7 fL (7.4-10.4); Platelet Count 137 thou/uL (130-400); RBC Distribution Width 16.8 % (11.5-14.5); Red Blood Cell (RBC) Count 2.66 mill/uL (4.70-6.10); White Blood Cell (WBC) Count 7.1 thou/uL (4.8-10.8)
[2021-08-17 19:23] LABS: INR-International Normal Ratio 1.2; Prothrombin Time 15.6 sec (12.0-14.7)
[2021-08-17 19:24] LABS: ALT (SGPT) 7 U/L (8-55); AST (SGOT) 7 U/L (5-34); Albumin 3.4 g/dL (3.4-4.8); Alkaline Phosphatase 59 U/L (40-110); Anion Gap 17 mmol/L (10-20); BUN (Urea Nitrogen) 55 mg/dL (8.4-25.7); Bilirubin, Total 0.9 mg/dL (0.2-1.2); Calc. Creatinine Clearance 0 mL/min (70-130); Calcium 9.1 mg/dL (7.8-10.44); Carbon Dioxide 22 mmol/L (23-31); Chloride 104 mmol/L (98-107); Globulin 2.8 g/dL (2.4-3.5); Glucose 134 mg/dL (83-110); PTT 41.1 sec (22.9-36.1); Potassium 5.1 mmol/L (3.5-5.1); Protein, Total 6.2 g/dL (5.8-8.1); Sodium 138 mmol/L (136-145)
[2021-08-17] MEDS ORDERED: Ondansetron PF 4 MG/2 ML Vial ONE (19:36)
[2021-08-18] MEDS ORDERED: Dextrose 5% in Water 1,000 ML IV PRN (00:27)
[2021-08-18] MEDS ORDERED: Ondansetron ODT 4 MG TAB PO PRN (00:27)
[2021-08-18] MEDS ORDERED: Fentanyl 100 MCG/2 ML VIAL ONE (00:27)
[2021-08-18] MEDS ORDERED: Ondansetron PF 4 MG/2 ML Vial IVP PRN (00:27)
[2021-08-18] MEDS ORDERED: HumaLOG 300 UNITS/3 ML VIAL SC PRN ×2 (00:27)
[2021-08-18] MEDS ORDERED: HYDROcodone/Acetaminophen 5/325 mg Tablet PO PRN (00:27)
[2021-08-18] MEDS ORDERED: Acetaminophen 325 MG TAB PO PRN (00:27)
[2021-08-18] MEDS ORDERED: Dextrose 50% Abboject 50 ML SYRINGE SLOW IVP PRN (00:27)
[2021-08-18] MEDS ORDERED: Acetaminophen 650 MG Suppository PR PRN (00:27)
[2021-08-18 04:39] LABS: #Eosinphils 0.1 thou/uL (0.0-0.7); #Lymphocytes 0.9 thou/uL (1.20-3.40); #Monocytes 0.6 thou/uL (0.11-0.59); #Neutrophils 4.3 thou/uL (1.40-6.50); %Basophils 0.2 % (0.0-1.0); %Eosinophils 0.9 % (0.0-10.0); %Lymphocytes 15.3 % (21.0-51.0); %Monocytes 10.2 % (0.0-10.0); %Neutrophils 73.4 % (42.0-75.0); Hemoglobin 8.3 g/dL (14.0-18.0); Mean Corpuscular Hemoglobin 33.8 pg (27.0-31.0); Mean Platelet Volume 8.8 fL (7.4-10.4); Platelet Count 127 thou/uL (130-400); RBC Distribution Width 16.7 % (11.5-14.5); Red Blood Cell (RBC) Count 2.46 mill/uL (4.70-6.10); White Blood Cell (WBC) Count 5.8 thou/uL (4.8-10.8)
[2021-08-18 05:05] LABS: Anion Gap 17 mmol/L (10-20); BUN (Urea Nitrogen) 56 mg/dL (8.4-25.7); Calc. Creatinine Clearance 0 mL/min (70-130); Calcium 8.9 mg/dL (7.8-10.44); Carbon Dioxide 21 mmol/L (23-31); Chloride 103 mmol/L (98-107); Glucose 114 mg/dL (83-110); Iron 64 ug/dL (65-175); Iron 65 ug/dL (65-175); Iron Binding Capacity, Total 123 mcg/dL (261-462); Iron Binding Capacity, Total 125 mcg/dL (261-462); Potassium 5.4 mmol/L (3.5-5.1); Sodium 136 mmol/L (136-145)
[2021-08-18] MEDS ORDERED: Enoxaparin Sodium 30 MG/0.3 ML SYRINGE SC SCH (09:00)
[2021-08-18] MEDS ORDERED: Enoxaparin Sodium 30 MG/0.3 ML SYRINGE ONE (09:07)
[2021-08-18] MEDS ORDERED: EPOETIN ALFA-EPBX (ESRD) 4,000 UNIT/ML VIAL SC SCH (09:15)
[2021-08-18 10:27] LABS: ALT (SGPT) 7 U/L (8-55); AST (SGOT) 7 U/L (5-34); Albumin 3.6 g/dL (3.4-4.8); Alkaline Phosphatase 56 U/L (40-110); Anion Gap 18 mmol/L (10-20); BUN (Urea Nitrogen) 59 mg/dL (8.4-25.7); Bilirubin, Total 0.8 mg/dL (0.2-1.2); Calc. Creatinine Clearance 6 mL/min (70-130); Calcium 9.3 mg/dL (7.8-10.44); Carbon Dioxide 22 mmol/L (23-31); Chloride 101 mmol/L (98-107); Globulin 2.9 g/dL (2.4-3.5); Glucose 126 mg/dL (83-110); Potassium 5.5 mmol/L (3.5-5.1); Protein, Total 6.5 g/dL (5.8-8.1); Sodium 135 mmol/L (136-145)
[2021-08-18] MEDS ORDERED: hydrALAZINE 25 MG TAB PO PRN (11:19)
[2021-08-18 21:57] VITALS: BMI 29.3
[2021-08-19 19:36] VITALS: BP 165/70; TEMP 97.6
== END 2021-08-19 20:50 | disposition home or self-care (01) | DRG 919 ==
LOC: ERS 17:24 → ERHOLD 20:50 → 2NO 08-18 10:49 → OBSVTOIN 08-19 16:07
PROVIDERS: ADMIT Student in an Organized Health Care Education/Training Program; ATTEND Hospitalist
PROC: 4A023N7 Measurement of Cardiac Sampling and Pressure, Left Heart, Percutaneous Approach (ICD-10-PCS; 2021-08-17)
PROC: B2111ZZ Fluoroscopy of Multiple Coronary Arteries using Low Osmolar Contrast (ICD-10-PCS; 2021-08-17)
PROC: 5A1D70Z Performance of Urinary Filtration, Intermittent, Less than 6 Hours Per Day (ICD-10-PCS; principal; 2021-08-19)
DX: L76.32 Postprocedural hematoma of skin and subcutaneous tissue following other procedure (principal); N18.6 End stage renal disease; I12.0 Hypertensive chronic kidney disease with stage 5 chronic kidney disease or end stage renal disease; E11.22 Type 2 diabetes mellitus with diabetic chronic kidney disease; D63.1 Anemia in chronic kidney disease; I25.10 Atherosclerotic heart disease of native coronary artery without angina pectoris; Y83.8 Other surgical procedures as the cause of abnormal reaction of the patient, or of later complication, without mention of misadventure at the time of the procedure; D50.0 Iron deficiency anemia secondary to blood loss (chronic); Z79.4 Long term (current) use of insulin; Z79.899 Other long term (current) drug therapy; Z99.2 Dependence on renal dialysis; Z90.49 Acquired absence of other specified parts of digestive tract
CPT/HCPCS: 36415; 36416; 76936; 80048; 80053; 80061; 82728; 83540; 83550; 85025; 85610; 85730; 86850; 86900; 86901; 90935; 93458; 96372; 96374; 96375; 96376; 99152; 99153; G0257; G0378; J0360; J1644; J1650; J2001; J2250; J2405; J3010; Q9967

== ENCOUNTER 2021-09-24 07:00 | Inpatient (IN) | payer MEDICARE ==
[2021-09-24] MEDS ORDERED: Morphine 4 MG/ML VIAL ONE (07:53)
[2021-09-24 08:11] LABS: #Eosinphils 0.1 thou/uL (0.0-0.7); #Lymphocytes 0.6 thou/uL (1.20-3.40); #Monocytes 0.5 thou/uL (0.11-0.59); #Neutrophils 6.5 thou/uL (1.40-6.50); %Basophils 0.1 % (0.0-1.0); %Eosinophils 0.8 % (0.0-10.0); %Lymphocytes 7.8 % (21.0-51.0); %Monocytes 6.1 % (0.0-10.0); %Neutrophils 85.3 % (42.0-75.0); Hemoglobin 8.8 g/dL (14.0-18.0); Mean Corpuscular HGB CONC 33.8 g/dL (32.0-36.0); Mean Corpuscular Hemoglobin 35.3 pg (27.0-31.0); Mean Platelet Volume 6.8 fL (7.4-10.4); Platelet Count 261 thou/uL (130-400); RBC Distribution Width 17.6 % (11.5-14.5); White Blood Cell (WBC) Count 7.6 thou/uL (4.8-10.8)
[2021-09-24 08:31] LABS: ALT (SGPT) Less than 7 U/L (8-55); AST (SGOT) 11 U/L (5-34); Albumin 3.7 g/dL (3.4-4.8); Alkaline Phosphatase 91 U/L (40-110); Anion Gap 24 mmol/L (10-20); BUN (Urea Nitrogen) 68 mg/dL (8.4-25.7); Bilirubin, Total 0.4 mg/dL (0.2-1.2); Calc. Creatinine Clearance 0 mL/min (70-130); Calcium 9.1 mg/dL (7.8-10.44); Carbon Dioxide 22 mmol/L (23-31); Chloride 97 mmol/L (98-107); Globulin 3.4 g/dL (2.4-3.5); Glucose 100 mg/dL (83-110); Potassium 5.7 mmol/L (3.5-5.1); Protein, Total 7.1 g/dL (5.8-8.1); Sodium 137 mmol/L (136-145)
[2021-09-24] MEDS ORDERED: Calcium Chloride 1 GM/10 ML Abboject SYRINGE ONE ×2 (09:16→09:33)
[2021-09-24] MEDS ORDERED: Sodium Bicarb 50 MEQ/50 ML Abboject 8.4% SYRINGE ONE (09:16)
[2021-09-24] MEDS ORDERED: Cefepime 2 GM VIAL ONE ×2 (09:16→11:10)
[2021-09-24 10:01] LABS: Troponin I 0.069 ng/mL (< 0.028)
[2021-09-24] MEDS ORDERED: Ondansetron ODT 4 MG TAB PO PRN (10:26)
[2021-09-24] MEDS ORDERED: hydrALAZINE 20 MG/ML VIAL SLOW IVP PRN (10:26)
[2021-09-24] MEDS ORDERED: Benzonatate 100 MG CAP PO PRN (10:26)
[2021-09-24] MEDS ORDERED: Acetaminophen 500 MG TAB PO PRN (10:26)
[2021-09-24] MEDS ORDERED: Ondansetron PF 4 MG/2 ML Vial IVP PRN (10:26)
[2021-09-24] MEDS ORDERED: Morphine 4 MG/ML VIAL SLOW IVP SCH (12:45)
[2021-09-24] MEDS ORDERED: Lidocaine 5% Patch TD SCH (13:00)
[2021-09-24] MEDS ORDERED: Azithromycin 500 MG in Sodium Chloride 0.9% 250 ML 250 ML IVPB SCH (13:00)
[2021-09-24 14:13] VITALS: BMI 27.8
[2021-09-24] MEDS ORDERED: Morphine 4 MG/ML VIAL SLOW IVP PRN (17:00)
[2021-09-24] MEDS: Famotidine 20 MG TAB PO SCH (20:43)
[2021-09-25] MEDS ORDERED: Transdermal Patch Removal TOP SCH (01:00)
[2021-09-25 04:58] LABS: Anion Gap 21 mmol/L (10-20); BUN (Urea Nitrogen) 77 mg/dL (8.4-25.7); Calc. Creatinine Clearance 6 mL/min (70-130); Calcium 9.4 mg/dL (7.8-10.44); Carbon Dioxide 21 mmol/L (23-31); Chloride 98 mmol/L (98-107); Glucose 95 mg/dL (83-110); Magnesium 2.1 mg/dL (1.6-2.6); Potassium 5.2 mmol/L (3.5-5.1); Sodium 135 mmol/L (136-145)
[2021-09-25 04:59] LABS: Phosphorus 9.5 mg/dL (2.3-4.7)
[2021-09-25 05:59] LABS: #Eosinphils 0.1 thou/uL (0.0-0.7); #Lymphocytes 1.1 thou/uL (1.20-3.40); #Monocytes 0.6 thou/uL (0.11-0.59); #Neutrophils 5.3 thou/uL (1.40-6.50); %Basophils 0.3 % (0.0-1.0); %Eosinophils 1.5 % (0.0-10.0); %Monocytes 8.8 % (0.0-10.0); %Neutrophils 74.4 % (42.0-75.0); Hemoglobin 8.1 g/dL (14.0-18.0); Mean Corpuscular HGB CONC 31.7 g/dL (32.0-36.0); Mean Corpuscular Hemoglobin 33.2 pg (27.0-31.0); Mean Platelet Volume 7.4 fL (7.4-10.4); Platelet Count 302 thou/uL (130-400); RBC Distribution Width 17.8 % (11.5-14.5); Red Blood Cell (RBC) Count 2.45 mill/uL (4.70-6.10); White Blood Cell (WBC) Count 7.1 thou/uL (4.8-10.8)
[2021-09-25 07:43] VITALS: BP 124/58; TEMP 98.4
[2021-09-25] MEDS ORDERED: cefTRIAXone\\ROCEPHIN 1 GM in Sodium Chloride 0.9% 100 ML IVPB SCH (09:00)
[2021-09-25] MEDS: Famotidine 20 MG TAB PO SCH (09:47)
[2021-09-25] MEDS ORDERED: Azithromycin 500 MG in Sodium Chloride 0.9% 250 ML 250 ML IVPB SCH (10:00)
[2021-09-25 21:03] LABS: SARS-CoV-2 PCR by NAA Not Detected (NotDetected)
== END 2021-09-25 10:46 | disposition home or self-care (01) | DRG 205 ==
LOC: ERS 07:00 → 2NO 10:26
PROVIDERS: ADMIT Family Medicine; ATTEND Internal Medicine
DX: J95.89 Other postprocedural complications and disorders of respiratory system, not elsewhere classified (principal); N18.6 End stage renal disease; I12.0 Hypertensive chronic kidney disease with stage 5 chronic kidney disease or end stage renal disease; Z20.822 Contact with and (suspected) exposure to COVID-19; F17.210 Nicotine dependence, cigarettes, uncomplicated; Y83.8 Other surgical procedures as the cause of abnormal reaction of the patient, or of later complication, without mention of misadventure at the time of the procedure; E78.5 Hyperlipidemia, unspecified; E11.22 Type 2 diabetes mellitus with diabetic chronic kidney disease; E87.70 Fluid overload, unspecified; I25.10 Atherosclerotic heart disease of native coronary artery without angina pectoris; Z53.29 Procedure and treatment not carried out because of patient's decision for other reasons; Z99.2 Dependence on renal dialysis; Z79.84 Long term (current) use of oral hypoglycemic drugs
CPT/HCPCS: 36415; 71045; 72125; 80048; 80053; 83735; 84100; 84484; 85025; 93005; 96365; 96375; J0360; J0456; J0692; J2270; J3370; J7050; U0003; U0005

== ENCOUNTER 2022-03-08 12:35 | Emergency (ER) | payer MEDICARE | END 2022-03-08 15:10 | disposition home or self-care (01) | LOC: ERS 12:35 | DX: S80.01XA Contusion of right knee, initial encounter (principal); E11.9 Type 2 diabetes mellitus without complications; I10 Essential (primary) hypertension; F17.210 Nicotine dependence, cigarettes, uncomplicated; W19.XXXA Unspecified fall, initial encounter | CPT/HCPCS: 72170 ==

== ENCOUNTER 2022-06-11 20:30 | Inpatient (IN) | payer MEDICARE, OTHER ==
[2022-06-11] MEDS ORDERED: Morphine 4 MG/ML VIAL ONE (20:58)
[2022-06-11 21:11] LABS: #Eosinphils 0.1 thou/uL (0.0-0.7); #Lymphocytes 0.3 thou/uL (1.20-3.40); #Monocytes 0.7 thou/uL (0.11-0.59); %Eosinophils 0.5 % (0.0-10.0); %Lymphocytes 1.9 % (21.0-51.0); %Monocytes 4.4 % (0.0-10.0); %Neutrophils 93.1 % (42.0-75.0); Hemoglobin 11.5 g/dL (14.0-18.0); Mean Corpuscular HGB CONC 33.2 g/dL (32.0-36.0); Mean Corpuscular Hemoglobin 34.8 pg (27.0-31.0); Mean Platelet Volume 13.9 fL (7.4-10.4); Platelet Count 66 10x3/uL (130-400); RBC Distribution Width 17.5 % (11.5-14.5); Red Blood Cell (RBC) Count 3.31 mill/uL (4.70-6.10); White Blood Cell (WBC) Count 15.1 10x3/uL (4.8-10.8)
[2022-06-11 21:30] LABS: ALT (SGPT) 16 U/L (8-55); AST (SGOT) 16 U/L (5-34); Albumin 3.8 g/dL (3.4-4.8); Alkaline Phosphatase 78 U/L (40-110); Anion Gap 29 mmol/L (10-20); Bilirubin, Total 0.9 mg/dL (0.2-1.2); Calc. Creatinine Clearance 0 mL/min (70-130); Calcium 9.2 mg/dL (7.8-10.44); Carbon Dioxide 14 mmol/L (23-31); Chloride 99 mmol/L (98-107); Estimated GFR 3; Globulin 3.5 g/dL (2.4-3.5); Glucose 130 mg/dL (83-110); Protein, Total 7.3 g/dL (5.8-8.1); Sodium 135 mmol/L (136-145)
[2022-06-11 21:33] LABS: Potassium 6.7 mmol/L (3.5-5.1)
[2022-06-11 21:43] LABS: BUN (Urea Nitrogen) 125 mg/dL (8.4-25.7)
[2022-06-11 21:51] LABS: CKMB 17.8 ng/mL (0-6.6)
[2022-06-12 00:32] LABS: HBSAg Index 0.26 S/CO (0-0.99); Hep B Surf Ag Non-Reactive S/CO (NonReactive); Hep C IgG Ab Non-Reactive (NonReactive); Hep C Index 0.14 S/CO (0-0.79)
[2022-06-12 00:36] LABS: HBSAB Concentration 12.85 mIU/mL; Hep B Surf AB Reactive (NonReactive)
[2022-06-12 03:02] LABS: Hep B Core Total Ab Reactive (NonReactive); Hep B Core Total Index 5.56 S/CO (0-0.79)
[2022-06-12 03:06] LABS: Troponin I 0.235 ng/mL (< 0.028)
[2022-06-12] MEDS ORDERED: Ondansetron PF 4 MG/2 ML Vial IVP PRN (03:19)
[2022-06-12] MEDS ORDERED: Acetaminophen 325 MG TAB PO PRN (03:19)
[2022-06-12] MEDS ORDERED: Dextrose 50% Abboject 50 ML SYRINGE SLOW IVP PRN (03:24)
[2022-06-12] MEDS ORDERED: Dextrose 5% in Water 1,000 ML IV PRN (03:24)
[2022-06-12 05:20] LABS: #Eosinphils 0.1 thou/uL (0.0-0.7); #Lymphocytes 0.3 thou/uL (1.20-3.40); #Monocytes 0.8 thou/uL (0.11-0.59); #Neutrophils 13.2 thou/uL (1.40-6.50); %Basophils 0.2 % (0.0-1.0); %Eosinophils 0.4 % (0.0-10.0); %Monocytes 5.5 % (0.0-10.0); Hemoglobin 10.7 g/dL (14.0-18.0); Mean Corpuscular HGB CONC 31.9 g/dL (32.0-36.0); Mean Corpuscular Hemoglobin 33.6 pg (27.0-31.0); Mean Platelet Volume 11.7 fL (7.4-10.4); Platelet Count 73 10x3/uL (130-400); RBC Distribution Width 17.4 % (11.5-14.5); Red Blood Cell (RBC) Count 3.18 mill/uL (4.70-6.10); White Blood Cell (WBC) Count 14.3 10x3/uL (4.8-10.8)
[2022-06-12 05:35] LABS: Anion Gap 22 mmol/L (10-20); BUN (Urea Nitrogen) 64 mg/dL (8.4-25.7); Calc. Creatinine Clearance 7 mL/min (70-130); Carbon Dioxide 22 mmol/L (23-31); Chloride 99 mmol/L (98-107); Estimated GFR 5; Glucose 90 mg/dL (83-110); Potassium 4.5 mmol/L (3.5-5.1); Sodium 138 mmol/L (136-145)
[2022-06-12 05:37] VITALS: BMI 25.8
[2022-06-12 07:15] LABS: Troponin I 0.238 ng/mL (< 0.028)
[2022-06-12] MEDS ORDERED: cefTRIAXone\\ROCEPHIN 1 GM VIAL ONE (08:34)
[2022-06-12] MEDS: cefTRIAXone\\ROCEPHIN 1 GM in Sodium Chloride 0.9% 100 ML IVPB SCH (08:37)
[2022-06-12] MEDS ORDERED: Heparin 5,000 UNITS/ML VIAL SC SCH (09:00)
[2022-06-12] MEDS ORDERED: Vancomycin Diaylsis Sliding Scale (Wt 71-99) FS SCH (09:15)
[2022-06-12] MEDS ORDERED: Vancomycin 1 GM in Premix Bag 1 BAG IVPB SCH (09:15)
[2022-06-12 09:40] LABS: Vancomycin, Random Less than 1.1 ug/mL (See Comment)
[2022-06-12] MEDS: Gabapentin 100 MG CAP PO SCH (20:40)
[2022-06-13 05:10] LABS: Hemoglobin 11.2 g/dL (14.0-18.0); Mean Corpuscular HGB CONC 30.7 g/dL (32.0-36.0); Mean Corpuscular Hemoglobin 32.9 pg (27.0-31.0); RBC Distribution Width 17.3 % (11.5-14.5)
[2022-06-13 05:15] LABS: Vancomycin, Random 10.9 ug/mL (See Comment)
[2022-06-13 05:19] LABS: Anion Gap 22 mmol/L (10-20); BUN (Urea Nitrogen) 78 mg/dL (8.4-25.7); Calc. Creatinine Clearance 7 mL/min (70-130); Calcium 8.7 mg/dL (7.8-10.44); Carbon Dioxide 23 mmol/L (23-31); Chloride 99 mmol/L (98-107); Estimated GFR 5; Glucose 126 mg/dL (83-110); Sodium 138 mmol/L (136-145)
[2022-06-13 05:28] LABS: Potassium 6.2 mmol/L (3.5-5.1)
[2022-06-13 06:39] LABS: #Eosinphils 0.1 thou/uL (0.0-0.7); #Lymphocytes 0.4 thou/uL (1.20-3.40); #Neutrophils 11.5 thou/uL (1.40-6.50); %Eosinophils 0.7 % (0.0-10.0); %Lymphocytes 3.2 % (21.0-51.0); %Monocytes 7.8 % (0.0-10.0); %Neutrophils 88.3 % (42.0-75.0); Anisocytosis SLIGHT = 6-15 cells (100X) (0-5/hpf); Burr Cells SLIGHT = 2-5 cells (100X) (0-1/hpf); Hypochromia SLIGHT = 6-15 cells (100X) (0-5/hpf); MDiff Complete? YES; Macrocytosis MODERATE=16-30 cells (100X) (0-5/hpf); Mean Platelet Volume 9.4 fL (7.4-10.4); Ovalocytes MODERATE= 6-15 cells (100X) (0-1/hpf); Platelet Count 127 10x3/uL (130-400); Platelet Morphology Comment PLT clumps seen-LOW; Polychromasia SLIGHT = 2-3 cells (100X) (0-2/hpf)
[2022-06-13] MEDS: Gabapentin 100 MG CAP PO SCH (09:15)
[2022-06-13] MEDS: Lidocaine 5% Patch TD SCH (09:19)
[2022-06-13] MEDS: cefTRIAXone\\ROCEPHIN 1 GM in Sodium Chloride 0.9% 100 ML IVPB SCH (16:02)
[2022-06-13] MEDS: Folic Acid/Vit B Comp W-C PO SCH (16:03)
[2022-06-13] MEDS ORDERED: Vancomycin HCl 750 MG in Sodium Chloride 0.9% 250 ML 250 ML IVPB SCH (17:00)
[2022-06-13] MEDS: HumaLOG 300 UNITS/3 ML VIAL SC PRN (18:23)
[2022-06-13] MEDS: Transdermal Patch Removal TOP SCH (22:00)
[2022-06-14 05:02] LABS: Hemoglobin 11.3 g/dL (14.0-18.0); Mean Corpuscular HGB CONC 31.3 g/dL (32.0-36.0); Mean Corpuscular Hemoglobin 33.8 pg (27.0-31.0); RBC Distribution Width 17.5 % (11.5-14.5); Red Blood Cell (RBC) Count 3.36 mill/uL (4.70-6.10); White Blood Cell (WBC) Count 13.3 10x3/uL (4.8-10.8)
[2022-06-14 05:08] LABS: Anion Gap 20 mmol/L (10-20); BUN (Urea Nitrogen) 51 mg/dL (8.4-25.7); Calc. Creatinine Clearance 9 mL/min (70-130); Calcium 8.9 mg/dL (7.8-10.44); Carbon Dioxide 25 mmol/L (23-31); Chloride 98 mmol/L (98-107); Estimated GFR 7; Glucose 190 mg/dL (83-110); Potassium 5.5 mmol/L (3.5-5.1); Sodium 137 mmol/L (136-145)
[2022-06-14 06:07] LABS: #Eosinphils 0.1 thou/uL (0.0-0.7); #Lymphocytes 0.5 thou/uL (1.20-3.40); #Monocytes 0.8 thou/uL (0.11-0.59); #Neutrophils 11.9 thou/uL (1.40-6.50); %Lymphocytes 3.5 % (21.0-51.0); %Neutrophils 89.5 % (42.0-75.0); Mean Platelet Volume 14.2 fL (7.4-10.4); Platelet Count 116 10x3/uL (130-400)
[2022-06-14] MEDS: Folic Acid/Vit B Comp W-C PO SCH (10:16)
[2022-06-14] MEDS: Lidocaine 5% Patch TD SCH (10:16)
[2022-06-14] MEDS: cefTRIAXone\\ROCEPHIN 1 GM in Sodium Chloride 0.9% 100 ML IVPB SCH (10:16)
[2022-06-14] MEDS ORDERED: Amlodipine 5 MG TAB PO SCH (16:00)
[2022-06-14] MEDS: Aspirin 81 mg Enteric Coated Tablet PO SCH (21:32)
[2022-06-14] MEDS: Transdermal Patch Removal TOP SCH (21:34)
[2022-06-15] MEDS: HumaLOG 300 UNITS/3 ML VIAL SC PRN ×2 (05:21→16:29)
[2022-06-15] MEDS: Amlodipine 5 MG TAB PO SCH (08:14)
[2022-06-15] MEDS: Aspirin 81 mg Enteric Coated Tablet PO SCH ×2 (08:15→21:44)
[2022-06-15] MEDS: Lidocaine 5% Patch TD SCH (08:15)
[2022-06-15] MEDS: cefTRIAXone\\ROCEPHIN 1 GM in Sodium Chloride 0.9% 100 ML IVPB SCH (08:15)
[2022-06-15] MEDS: Folic Acid/Vit B Comp W-C PO SCH (08:15)
[2022-06-15] MEDS ORDERED: FLU VACC QS2022-23(65YR UP)/PF 240 MCG/0.7 ML SYRINGE IM ONE (09:00)
[2022-06-15] MEDS ORDERED: Amlodipine 5 MG TAB PO SCH (09:00)
[2022-06-15] MEDS: Transdermal Patch Removal TOP SCH (22:30)
[2022-06-16] MEDS: HumaLOG 300 UNITS/3 ML VIAL SC PRN (06:12)
[2022-06-16 09:26] LABS: Anion Gap 14 mmol/L (10-20); BUN (Urea Nitrogen) 46 mg/dL (8.4-25.7); Calc. Creatinine Clearance 14 mL/min (70-130); Calcium 8.9 mg/dL (7.8-10.44); Carbon Dioxide 28 mmol/L (23-31); Chloride 99 mmol/L (98-107); Estimated GFR 12; Glucose 114 mg/dL (83-110); Potassium 4.8 mmol/L (3.5-5.1); Sodium 136 mmol/L (136-145)
[2022-06-16] MEDS: Folic Acid/Vit B Comp W-C PO SCH (09:45)
[2022-06-16] MEDS: Aspirin 81 mg Enteric Coated Tablet PO SCH ×2 (09:45→22:20)
[2022-06-16] MEDS: Amlodipine 5 MG TAB PO SCH (09:45)
[2022-06-16] MEDS: Lidocaine 5% Patch TD SCH (09:45)
[2022-06-16] MEDS: Transdermal Patch Removal TOP SCH (22:22)
[2022-06-17 06:12] LABS: Anion Gap 16 mmol/L (10-20); BUN (Urea Nitrogen) 43 mg/dL (8.4-25.7); Calc. Creatinine Clearance 17 mL/min (70-130); Calcium 8.7 mg/dL (7.8-10.44); Carbon Dioxide 26 mmol/L (23-31); Chloride 98 mmol/L (98-107); Estimated GFR 14; Glucose 303 mg/dL (83-110); Potassium 4.3 mmol/L (3.5-5.1); Sodium 136 mmol/L (136-145)
[2022-06-17 08:41] LABS: Hemoglobin 10.7 g/dL (14.0-18.0); Mean Corpuscular HGB CONC 31.4 g/dL (32.0-36.0); Mean Corpuscular Hemoglobin 33.9 pg (27.0-31.0); RBC Distribution Width 16.6 % (11.5-14.5); Red Blood Cell (RBC) Count 3.17 mill/uL (4.70-6.10); White Blood Cell (WBC) Count 8.9 10x3/uL (4.8-10.8)
[2022-06-17 08:42] LABS: #Eosinphils 0.3 thou/uL (0.0-0.7); #Lymphocytes 0.5 thou/uL (1.20-3.40); #Monocytes 0.9 thou/uL (0.11-0.59); #Neutrophils 7.1 thou/uL (1.40-6.50); %Eosinophils 3.1 % (0.0-10.0); %Lymphocytes 6.1 % (21.0-51.0); %Monocytes 10.5 % (0.0-10.0); %Neutrophils 80.3 % (42.0-75.0)
[2022-06-17 08:48] LABS: Hypochromia SLIGHT = 6-15 cells (100X) (0-5/hpf); MDiff Complete? YES; Macrocytosis SLIGHT = 6-15 cells (100X) (0-5/hpf); Mean Platelet Volume 12.4 fL (7.4-10.4); Ovalocytes SLIGHT = 2-5 cells (100X) (0-1/hpf); Platelet Clumps MODERATE; Platelet Morphology Comment PLT clumps seen-LOW; Polychromasia SLIGHT = 2-3 cells (100X) (0-2/hpf); Tear Drops SLIGHT = 2-5 cells (100X) (0-1/hpf)
[2022-06-17] MEDS: Amlodipine 5 MG TAB PO SCH (09:10)
[2022-06-17] MEDS: Lidocaine 5% Patch TD SCH (09:11)
[2022-06-17] MEDS: Folic Acid/Vit B Comp W-C PO SCH (09:11)
[2022-06-17] MEDS: Aspirin 81 mg Enteric Coated Tablet PO SCH ×2 (09:11→20:05)
[2022-06-17 09:20] LABS: Anion Gap 16 mmol/L (10-20); BUN (Urea Nitrogen) 43 mg/dL (8.4-25.7); Calc. Creatinine Clearance 15 mL/min (70-130); Calcium 8.6 mg/dL (7.8-10.44); Carbon Dioxide 26 mmol/L (23-31); Chloride 96 mmol/L (98-107); Estimated GFR 12; Glucose 338 mg/dL (83-110); Potassium 4.2 mmol/L (3.5-5.1); Sodium 134 mmol/L (136-145)
[2022-06-17 15:14] LABS: Phosphorus 5.9 mg/dL (2.3-4.7)
[2022-06-17] MEDS: HumaLOG 300 UNITS/3 ML VIAL SC PRN ×2 (16:14→20:32)
[2022-06-17] MEDS: Transdermal Patch Removal TOP SCH (20:00)
[2022-06-17] MEDS ORDERED: Doxylamine 25 MG TAB PO PRN (23:14)
[2022-06-17] MEDS ORDERED: diphenhydrAMINE 12.5 MG/5 ML UDCUP PO PRN (23:39)
[2022-06-18] MEDS ORDERED: diphenhydrAMINE 25 MG CAP PO SCH (02:30)
[2022-06-18 06:18] LABS: Anion Gap 16 mmol/L (10-20); BUN (Urea Nitrogen) 62 mg/dL (8.4-25.7); Calc. Creatinine Clearance 12 mL/min (70-130); Calcium 8.7 mg/dL (7.8-10.44); Carbon Dioxide 25 mmol/L (23-31); Chloride 96 mmol/L (98-107); Estimated GFR 10; Glucose 204 mg/dL (83-110); Potassium 4.6 mmol/L (3.5-5.1); Sodium 132 mmol/L (136-145)
[2022-06-18 06:45] LABS: #Eosinphils 0.2 thou/uL (0.0-0.7); #Lymphocytes 0.5 thou/uL (1.20-3.40); #Monocytes 1.1 thou/uL (0.11-0.59); #Neutrophils 8.7 thou/uL (1.40-6.50); %Lymphocytes 4.3 % (21.0-51.0); %Monocytes 10.6 % (0.0-10.0); %Neutrophils 83.1 % (42.0-75.0); Hemoglobin 10.3 g/dL (14.0-18.0); MDiff Complete? YES; Macrocytosis SLIGHT = 6-15 cells (100X) (0-5/hpf); Mean Corpuscular HGB CONC 32.1 g/dL (32.0-36.0); Mean Corpuscular Hemoglobin 34.3 pg (27.0-31.0); Mean Platelet Volume 8.1 fL (7.4-10.4); Platelet Clumps MODERATE; Platelet Morphology Comment PLT clumps seen-LOW; RBC Distribution Width 16.5 % (11.5-14.5); Red Blood Cell (RBC) Count 3.01 mill/uL (4.70-6.10); White Blood Cell (WBC) Count 10.5 10x3/uL (4.8-10.8)
[2022-06-18] MEDS: HumaLOG 300 UNITS/3 ML VIAL SC PRN ×3 (07:24→21:33)
[2022-06-18] MEDS: Folic Acid/Vit B Comp W-C PO SCH (08:57)
[2022-06-18] MEDS: Amlodipine 5 MG TAB PO SCH (08:57)
[2022-06-18] MEDS: Aspirin 81 mg Enteric Coated Tablet PO SCH ×2 (08:57→21:32)
[2022-06-18] MEDS: Lidocaine 5% Patch TD SCH (08:58)
[2022-06-18 09:42] LABS: Anion Gap 18 mmol/L (10-20); BUN (Urea Nitrogen) 65 mg/dL (8.4-25.7); Calc. Creatinine Clearance 12 mL/min (70-130); Calcium 9.1 mg/dL (7.8-10.44); Carbon Dioxide 24 mmol/L (23-31); Chloride 96 mmol/L (98-107); Estimated GFR 9; Glucose 124 mg/dL (83-110); Sodium 133 mmol/L (136-145)
[2022-06-18] MEDS: Transdermal Patch Removal TOP SCH (21:32)
[2022-06-19] MEDS ORDERED: hydrOXYzine Pamoate 25 mg Capsule PO SCH ×2 (00:45→19:45)
[2022-06-19] MEDS: HumaLOG 300 UNITS/3 ML VIAL SC PRN ×3 (05:47→20:43)
[2022-06-19 05:52] LABS: Anion Gap 17 mmol/L (10-20); BUN (Urea Nitrogen) 55 mg/dL (8.4-25.7); Calc. Creatinine Clearance 13 mL/min (70-130); Calcium 8.9 mg/dL (7.8-10.44); Carbon Dioxide 24 mmol/L (23-31); Chloride 96 mmol/L (98-107); Estimated GFR 10; Potassium 4.3 mmol/L (3.5-5.1); Sodium 133 mmol/L (136-145)
[2022-06-19 06:04] LABS: Glucose 414 mg/dL (83-110)
[2022-06-19 06:16] LABS: #Eosinphils 0.2 thou/uL (0.0-0.7); #Lymphocytes 0.4 thou/uL (1.20-3.40); #Monocytes 0.9 thou/uL (0.11-0.59); #Neutrophils 8.8 thou/uL (1.40-6.50); %Basophils 0.2 % (0.0-1.0); %Eosinophils 1.6 % (0.0-10.0); %Lymphocytes 3.9 % (21.0-51.0); %Monocytes 8.8 % (0.0-10.0); %Neutrophils 85.5 % (42.0-75.0); Hemoglobin 10.7 g/dL (14.0-18.0); Mean Corpuscular HGB CONC 31.8 g/dL (32.0-36.0); Mean Corpuscular Hemoglobin 34.3 pg (27.0-31.0); RBC Distribution Width 16.3 % (11.5-14.5); Red Blood Cell (RBC) Count 3.14 mill/uL (4.70-6.10); White Blood Cell (WBC) Count 10.2 10x3/uL (4.8-10.8)
[2022-06-19] MEDS: Aspirin 81 mg Enteric Coated Tablet PO SCH ×2 (08:09→20:44)
[2022-06-19] MEDS: Amlodipine 5 MG TAB PO SCH (08:09)
[2022-06-19] MEDS: Folic Acid/Vit B Comp W-C PO SCH (08:10)
[2022-06-19] MEDS: Lidocaine 5% Patch TD SCH (08:11)
[2022-06-19 09:29] LABS: Anion Gap 15 mmol/L (10-20); BUN (Urea Nitrogen) 57 mg/dL (8.4-25.7); Calc. Creatinine Clearance 13 mL/min (70-130); Calcium 8.8 mg/dL (7.8-10.44); Carbon Dioxide 26 mmol/L (23-31); Chloride 96 mmol/L (98-107); Estimated GFR 10; Glucose 260 mg/dL (83-110); Sodium 133 mmol/L (136-145)
[2022-06-19] MEDS: Transdermal Patch Removal TOP SCH (22:23)
[2022-06-20] MEDS: HumaLOG 300 UNITS/3 ML VIAL SC PRN (05:41)
[2022-06-20 06:18] LABS: Anion Gap 21 mmol/L (10-20); BUN (Urea Nitrogen) 77 mg/dL (8.4-25.7); Calc. Creatinine Clearance 11 mL/min (70-130); Carbon Dioxide 21 mmol/L (23-31); Chloride 94 mmol/L (98-107); Estimated GFR 8; Glucose 286 mg/dL (83-110); Potassium 4.8 mmol/L (3.5-5.1); Sodium 131 mmol/L (136-145)
[2022-06-20 06:55] LABS: #Eosinphils 0.1 thou/uL (0.0-0.7); #Lymphocytes 0.5 thou/uL (1.20-3.40); #Neutrophils 9.8 thou/uL (1.40-6.50); %Lymphocytes 4.5 % (21.0-51.0); %Monocytes 8.9 % (0.0-10.0); %Neutrophils 85.6 % (42.0-75.0); Anisocytosis SLIGHT = 6-15 cells (100X) (0-5/hpf); Hemoglobin 9.8 g/dL (14.0-18.0); MDiff Complete? YES; Mean Corpuscular HGB CONC 32.3 g/dL (32.0-36.0); Mean Corpuscular Hemoglobin 34.4 pg (27.0-31.0); Mean Platelet Volume 11.2 fL (7.4-10.4); Platelet Clumps MODERATE; Platelet Morphology Comment PLT clumps seen-ADEQ; RBC Distribution Width 16.1 % (11.5-14.5); Red Blood Cell (RBC) Count 2.85 mill/uL (4.70-6.10); White Blood Cell (WBC) Count 11.4 10x3/uL (4.8-10.8)
[2022-06-20] MEDS ORDERED: NPH, Human Insulin Isophane 300 UNIT/3 ML VIAL SC SCH (09:00)
[2022-06-20] MEDS: Aspirin 81 mg Enteric Coated Tablet PO SCH (09:11)
[2022-06-20] MEDS: Folic Acid/Vit B Comp W-C PO SCH (09:11)
[2022-06-20] MEDS: Amlodipine 5 MG TAB PO SCH (09:11)
[2022-06-20] MEDS: Lidocaine 5% Patch TD SCH (09:12)
[2022-06-20 09:29] VITALS: BP 137/88; TEMP 98.5
== END 2022-06-20 18:55 | disposition home health service (06) | DRG 871 ==
LOC: ERS 20:30 → ERHOLD 23:36 → OBSVTOIN 06-12 03:20 → 2NO 06-12 20:17 → MSONC 06-14 21:56
PROVIDERS: ADMIT Internal Medicine; ATTEND Internal Medicine
PROC: 3E03329 Introduction of Other Anti-infective into Peripheral Vein, Percutaneous Approach (ICD-10-PCS; 2022-06-12)
PROC: 5A1D70Z Performance of Urinary Filtration, Intermittent, Less than 6 Hours Per Day (ICD-10-PCS; principal; 2022-06-13)
DX: A41.9 Sepsis, unspecified organism (principal); I21.A1 Myocardial infarction type 2; I50.33 Acute on chronic diastolic (congestive) heart failure; J96.01 Acute respiratory failure with hypoxia; N18.6 End stage renal disease; I13.2 Hypertensive heart and chronic kidney disease with heart failure and with stage 5 chronic kidney disease, or end stage renal disease; E87.20 Acidosis, unspecified; Z66 Do not resuscitate; E87.5 Hyperkalemia; Z20.822 Contact with and (suspected) exposure to COVID-19; I25.10 Atherosclerotic heart disease of native coronary artery without angina pectoris; F17.210 Nicotine dependence, cigarettes, uncomplicated; D63.1 Anemia in chronic kidney disease; E11.22 Type 2 diabetes mellitus with diabetic chronic kidney disease; D69.6 Thrombocytopenia, unspecified; E11.65 Type 2 diabetes mellitus with hyperglycemia; M54.9 Dorsalgia, unspecified; Z99.2 Dependence on renal dialysis; Z79.4 Long term (current) use of insulin; Z90.49 Acquired absence of other specified parts of digestive tract; Z91.14 Patient's other noncompliance with medication regimen; Z79.899 Other long term (current) drug therapy; Z79.82 Long term (current) use of aspirin; Z91.15 Patient's noncompliance with renal dialysis
CPT/HCPCS: 36415; 36416; 71045; 72148; 74176; 80048; 80053; 80202; 82553; 83605; 84100; 84484; 85025; 86140; 86704; 87040; 87077; 87149; 87186; 90935; 93005; 96374; G0257; G0306; J0696; J1815; J2270; J3370; J3370-JW; J3490; J7050; Q0163; Q0177

== ENCOUNTER 2022-07-04 15:31 | Inpatient (IN) | payer MEDICARE ==
[2022-07-04 16:18] LABS: Hemoglobin 10.1 g/dL (14.0-18.0); Mean Corpuscular HGB CONC 30.1 g/dL (32.0-36.0); Mean Corpuscular Hemoglobin 31.4 pg (27.0-31.0); RBC Distribution Width 15.8 % (11.5-14.5); Red Blood Cell (RBC) Count 3.21 mill/uL (4.70-6.10); White Blood Cell (WBC) Count 14.9 10x3/uL (4.8-10.8)
[2022-07-04 16:20] LABS: #Eosinphils 0.1 thou/uL (0.0-0.7); #Lymphocytes 0.4 thou/uL (1.20-3.40); #Monocytes 0.7 thou/uL (0.11-0.59); #Neutrophils 13.7 thou/uL (1.40-6.50); %Eosinophils 0.6 % (0.0-10.0); %Lymphocytes 2.6 % (21.0-51.0); %Monocytes 4.6 % (0.0-10.0); %Neutrophils 92.1 % (42.0-75.0); Mean Platelet Volume 11.6 fL (7.4-10.4); Platelet Count 85 10x3/uL (130-400)
[2022-07-04 16:38] LABS: ALT (SGPT) 15 U/L (8-55); AST (SGOT) 12 U/L (5-34); Albumin 3.3 g/dL (3.4-4.8); Alkaline Phosphatase 123 U/L (40-110); Anion Gap 16 mmol/L (10-20); BUN (Urea Nitrogen) 37 mg/dL (8.4-25.7); Bilirubin, Total 0.7 mg/dL (0.2-1.2); Calc. Creatinine Clearance 0 mL/min (70-130); Calcium 9.4 mg/dL (7.8-10.44); Carbon Dioxide 27 mmol/L (23-31); Chloride 100 mmol/L (98-107); Estimated GFR 12; Globulin 3.7 g/dL (2.4-3.5); Glucose 178 mg/dL (83-110); Potassium 4.2 mmol/L (3.5-5.1); Sodium 139 mmol/L (136-145)
[2022-07-04 19:19] LABS: Bacteria/HPF None Seen HPF (None Seen); Bilirubin Negative (Negative); Blood, Urine 3+ (Negative); Clarity Turbid (Clear); Glucose, Urine (Dipstick) >=1000 mg/dL (Negative); Ketone, Urine Negative (Negative); Leukocyte 25 Leu/uL (Negative); Nitrite Negative (Negative); Protein, Urine (Dipstick) 300 mg/dL (Neg-Trace); RBC/HPF Greater than 50 HPF (0-3); Specific Gravity, Urine 1.013 (1.002-1.036); Squamous Epithelial 0-3 HPF (0-3); Urobilinogen Normal mg/dL (Less than 2); WBC/HPF 21-50 HPF (0-3)
[2022-07-04] MEDS ORDERED: Piperacillin/Tazobactam 3.375 GM VIAL ONE (20:49)
[2022-07-04] MEDS ORDERED: Ondansetron ODT 4 MG TAB PO PRN (21:22)
[2022-07-04] MEDS ORDERED: Ondansetron PF 4 MG/2 ML Vial IVP PRN (21:22)
[2022-07-04] MEDS ORDERED: Acetaminophen 325 MG TAB PO PRN (21:22)
[2022-07-04] MEDS ORDERED: Acetaminophen 650 MG Suppository PR PRN (21:22)
[2022-07-04] MEDS ORDERED: Dextrose 5% in Water 1,000 ML IV PRN (21:30)
[2022-07-04] MEDS ORDERED: HumaLOG 300 UNITS/3 ML VIAL SC PRN (21:30)
[2022-07-04] MEDS ORDERED: Dextrose 50% Abboject 50 ML SYRINGE SLOW IVP PRN (21:30)
[2022-07-05] MEDS ORDERED: Vancomycin 1 GM/200 ML (FROZEN) BAG ONE (00:01)
[2022-07-05] MEDS: Heparin 5,000 UNITS/ML VIAL SC SCH ×3 (09:48→21:13)
[2022-07-05] MEDS ORDERED: Heparin 10,000 UNITS/ 10 ML VIAL ONE (11:13)
[2022-07-05 13:50] LABS: #Eosinphils 0.1 thou/uL (0.0-0.7); #Lymphocytes 0.5 thou/uL (1.20-3.40); #Monocytes 0.9 thou/uL (0.11-0.59); #Neutrophils 12.4 thou/uL (1.40-6.50); %Basophils 0.3 % (0.0-1.0); %Eosinophils 0.5 % (0.0-10.0); %Lymphocytes 3.8 % (21.0-51.0); %Monocytes 6.5 % (0.0-10.0); %Neutrophils 88.9 % (42.0-75.0); Hemoglobin 9.7 g/dL (14.0-18.0); Mean Corpuscular HGB CONC 31.4 g/dL (32.0-36.0); Mean Corpuscular Hemoglobin 33.4 pg (27.0-31.0); Mean Platelet Volume 9.6 fL (7.4-10.4); Platelet Count 216 10x3/uL (130-400); RBC Distribution Width 15.8 % (11.5-14.5)
[2022-07-05 14:03] LABS: Anion Gap 20 mmol/L (10-20); BUN (Urea Nitrogen) 49 mg/dL (8.4-25.7); Calc. Creatinine Clearance 0 mL/min (70-130); Calcium 8.9 mg/dL (7.8-10.44); Carbon Dioxide 23 mmol/L (23-31); Chloride 99 mmol/L (98-107); Estimated GFR 8; Glucose 243 mg/dL (83-110); Potassium 5.1 mmol/L (3.5-5.1); Sodium 137 mmol/L (136-145)
[2022-07-06] MEDS: HumaLOG 300 UNITS/3 ML VIAL SC PRN (06:34)
[2022-07-06] MEDS: HYDROcodone/Acetaminophen 5/325 mg Tablet PO PRN ×2 (06:39→21:27)
[2022-07-06] MEDS: Sevelamer Carbonate 800 MG TAB PO SCH ×3 (07:34→16:37)
[2022-07-06] MEDS: Heparin 5,000 UNITS/ML VIAL SC SCH ×3 (07:35→21:16)
[2022-07-06] MEDS: hydrALAZINE 25 MG TAB PO SCH ×2 (16:37→21:15)
[2022-07-06 19:17] VITALS: BMI 28.0
[2022-07-06] MEDS ORDERED: Aspirin 81 mg Enteric Coated Tablet PO SCH (21:00)
[2022-07-07 05:38] LABS: Hemoglobin A1c 7.2 % (4.0-6.0)
[2022-07-07] MEDS: HumaLOG 300 UNITS/3 ML VIAL SC PRN (05:50)
[2022-07-07] MEDS: Sevelamer Carbonate 800 MG TAB PO SCH ×3 (08:00→18:43)
[2022-07-07] MEDS ORDERED: Heparin 10,000 UNITS/ 10 ML VIAL ONE (08:59)
[2022-07-07] MEDS: hydrALAZINE 25 MG TAB PO SCH ×4 (09:00→22:58)
[2022-07-07] MEDS ORDERED: Amlodipine 10 MG TAB PO SCH (09:00)
[2022-07-07] MEDS: Aspirin 81 mg Enteric Coated Tablet PO SCH (10:11)
[2022-07-07] MEDS: Heparin 5,000 UNITS/ML VIAL SC SCH ×3 (10:11→20:12)
[2022-07-07] MEDS: Insulin Glargine 30 UNITS/0.3 ML VIAL SC SCH (10:12)
[2022-07-07] MEDS: HYDROcodone/Acetaminophen 5/325 mg Tablet PO PRN (22:58)
[2022-07-08] MEDS: Sevelamer Carbonate 800 MG TAB PO SCH ×3 (08:11→16:49)
[2022-07-08] MEDS: Aspirin 81 mg Enteric Coated Tablet PO SCH (08:12)
[2022-07-08] MEDS: NIFEdipine XL 60 MG TAB PO SCH (08:12)
[2022-07-08] MEDS: Insulin Glargine 30 UNITS/0.3 ML VIAL SC SCH (08:13)
[2022-07-08] MEDS: Heparin 5,000 UNITS/ML VIAL SC SCH ×2 (08:14→16:34)
[2022-07-08] MEDS: hydrALAZINE 25 MG TAB PO SCH ×3 (08:20→20:08)
[2022-07-08] MEDS: Ciprofloxacin Lactate/D5W 200 MG in Premix Bag 1 BAG IVPB SCH (13:29)
[2022-07-08] MEDS ORDERED: Apixaban 5 MG TAB PO SCH (16:15)
[2022-07-08] MEDS: HumaLOG 300 UNITS/3 ML VIAL SC PRN (16:40)
[2022-07-08] MEDS: HYDROcodone/Acetaminophen 5/325 mg Tablet PO PRN (16:56)
[2022-07-09 05:56] LABS: #Eosinphils 0.1 thou/uL (0.0-0.7); #Lymphocytes 0.9 thou/uL (1.20-3.40); #Monocytes 0.7 thou/uL (0.11-0.59); #Neutrophils 9.7 thou/uL (1.40-6.50); %Eosinophils 1.2 % (0.0-10.0); %Monocytes 5.9 % (0.0-10.0); %Neutrophils 84.9 % (42.0-75.0); Hemoglobin 11.1 g/dL (14.0-18.0); Mean Corpuscular HGB CONC 31.3 g/dL (32.0-36.0); Mean Corpuscular Hemoglobin 33.4 pg (27.0-31.0); Mean Platelet Volume 10.4 fL (7.4-10.4); Platelet Count 234 10x3/uL (130-400); RBC Distribution Width 16.4 % (11.5-14.5); Red Blood Cell (RBC) Count 3.32 mill/uL (4.70-6.10); White Blood Cell (WBC) Count 11.4 10x3/uL (4.8-10.8)
[2022-07-09 07:37] LABS: Chloride 97 mmol/L (98-107); Potassium 5.7 mmol/L (3.5-5.1); Sodium 136 mmol/L (136-145)
[2022-07-09 07:38] LABS: Glucose 105 mg/dL (83-110)
[2022-07-09 07:40] LABS: Anion Gap 20 mmol/L (10-20); Carbon Dioxide 25 mmol/L (23-31)
[2022-07-09 07:41] LABS: Calc. Creatinine Clearance 12 mL/min (70-130); Estimated GFR 9
[2022-07-09 07:42] LABS: BUN (Urea Nitrogen) 60 mg/dL (8.4-25.7)
[2022-07-09] MEDS: hydrALAZINE 25 MG TAB PO SCH ×3 (09:23→20:24)
[2022-07-09] MEDS: Sevelamer Carbonate 800 MG TAB PO SCH ×3 (09:23→17:22)
[2022-07-09] MEDS: Insulin Glargine 30 UNITS/0.3 ML VIAL SC SCH (09:24)
[2022-07-09] MEDS: NIFEdipine XL 60 MG TAB PO SCH (09:25)
[2022-07-09] MEDS: Apixaban 5 MG TAB PO SCH ×2 (09:26→20:25)
[2022-07-09] MEDS: HYDROcodone/Acetaminophen 5/325 mg Tablet PO PRN ×3 (09:27→20:24)
[2022-07-09] MEDS: Ciprofloxacin Lactate/D5W 200 MG in Premix Bag 1 BAG IVPB SCH (12:11)
[2022-07-09 15:30] LABS: Anion Gap 23 mmol/L (10-20); BUN (Urea Nitrogen) 64 mg/dL (8.4-25.7); Calc. Creatinine Clearance 12 mL/min (70-130); Carbon Dioxide 22 mmol/L (23-31); Chloride 93 mmol/L (98-107); Estimated GFR 8; Glucose 211 mg/dL (83-110); Potassium 5.8 mmol/L (3.5-5.1); Sodium 132 mmol/L (136-145)
[2022-07-09] MEDS ORDERED: Dextrose 50% Abboject 50 ML SYRINGE SLOW IVP PRN (17:42)
[2022-07-09] MEDS ORDERED: HumaLOG 300 UNITS/3 ML VIAL SC SCH (17:45)
[2022-07-09] MEDS ORDERED: Insulin Regular 300 UNITS/3 ML VIAL IVP SCH (18:00)
[2022-07-09 20:41] LABS: Anion Gap 23 mmol/L (10-20); BUN (Urea Nitrogen) 67 mg/dL (8.4-25.7); Calc. Creatinine Clearance 11 mL/min (70-130); Calcium 9.5 mg/dL (7.8-10.44); Carbon Dioxide 25 mmol/L (23-31); Chloride 93 mmol/L (98-107); Estimated GFR 8; Glucose 147 mg/dL (83-110); Potassium 5.5 mmol/L (3.5-5.1); Sodium 135 mmol/L (136-145)
[2022-07-10] MEDS ORDERED: Insulin Regular 300 UNITS/3 ML VIAL IVP SCH (00:15)
[2022-07-10] MEDS ORDERED: Dextrose 50% Abboject 50 ML SYRINGE SLOW IVP SCH (00:30)
[2022-07-10 05:35] LABS: Anion Gap 20 mmol/L (10-20); BUN (Urea Nitrogen) 69 mg/dL (8.4-25.7); Calc. Creatinine Clearance 11 mL/min (70-130); Calcium 8.8 mg/dL (7.8-10.44); Carbon Dioxide 24 mmol/L (23-31); Chloride 97 mmol/L (98-107); Estimated GFR 7; Glucose 127 mg/dL (83-110); Potassium 5.7 mmol/L (3.5-5.1); Sodium 135 mmol/L (136-145)
[2022-07-10] MEDS: HYDROcodone/Acetaminophen 5/325 mg Tablet PO PRN ×3 (05:42→15:00)
[2022-07-10] MEDS ORDERED: Heparin 10,000 UNITS/ 10 ML VIAL ONE (08:38)
[2022-07-10] MEDS: NIFEdipine XL 60 MG TAB PO SCH (09:00)
[2022-07-10] MEDS: Apixaban 5 MG TAB PO SCH ×2 (09:44→20:12)
[2022-07-10] MEDS: Sevelamer Carbonate 800 MG TAB PO SCH ×3 (09:45→18:05)
[2022-07-10] MEDS: Insulin Glargine 30 UNITS/0.3 ML VIAL SC SCH (09:46)
[2022-07-10] MEDS: hydrALAZINE 25 MG TAB PO SCH ×3 (14:05→20:13)
[2022-07-10] MEDS: Ciprofloxacin Lactate/D5W 200 MG in Premix Bag 1 BAG IVPB SCH (15:03)
[2022-07-10 17:48] LABS: Albumin 2.8 g/dL (3.4-4.8)
[2022-07-10 17:49] LABS: Chloride 97 mmol/L (98-107); Potassium 4.7 mmol/L (3.5-5.1); Sodium 130 mmol/L (136-145)
[2022-07-10 17:50] LABS: Calcium 8.8 mg/dL (7.8-10.44); Glucose 191 mg/dL (83-110)
[2022-07-10 17:52] LABS: Anion Gap 19 mmol/L (10-20); Carbon Dioxide 19 mmol/L (23-31)
[2022-07-10 17:53] LABS: Phosphorus 6.4 mg/dL (2.3-4.7)
[2022-07-10 17:54] LABS: BUN (Urea Nitrogen) 41 mg/dL (8.4-25.7); BUN/Creatinine Ratio 8.35; Calc. Creatinine Clearance 16 mL/min (70-130); Estimated GFR 12
[2022-07-10 19:53] VITALS: TEMP 97.5
[2022-07-11 09:15] VITALS: BP 157/80
[2022-07-11] MEDS: NIFEdipine XL 60 MG TAB PO SCH (09:58)
[2022-07-11] MEDS: Sevelamer Carbonate 800 MG TAB PO SCH (09:58)
[2022-07-11] MEDS: hydrALAZINE 25 MG TAB PO SCH (09:58)
[2022-07-11] MEDS: Apixaban 5 MG TAB PO SCH (09:58)
[2022-07-11] MEDS: HYDROcodone/Acetaminophen 5/325 mg Tablet PO PRN (09:59)
[2022-07-11] MEDS: Insulin Glargine 30 UNITS/0.3 ML VIAL SC SCH (09:59)
[2022-07-15] MEDS ORDERED: Apixaban 5 MG TAB PO SCH (21:00)
== END 2022-07-11 11:55 | disposition home or self-care (01) | DRG 727 ==
LOC: ERS 15:31 → ERHOLD 21:17 → MSONC 07-05 20:07 → OBSVTOIN 07-06 12:42
PROVIDERS: ADMIT Internal Medicine; ATTEND Internal Medicine
PROC: 5A1D70Z Performance of Urinary Filtration, Intermittent, Less than 6 Hours Per Day (ICD-10-PCS; principal; 2022-07-05)
DX: N48.1 Balanitis (principal); N18.6 End stage renal disease; E87.1 Hypo-osmolality and hyponatremia; I82.511 Chronic embolism and thrombosis of right femoral vein; I12.0 Hypertensive chronic kidney disease with stage 5 chronic kidney disease or end stage renal disease; E87.5 Hyperkalemia; E83.39 Other disorders of phosphorus metabolism; E88.09 Other disorders of plasma-protein metabolism, not elsewhere classified; E11.22 Type 2 diabetes mellitus with diabetic chronic kidney disease; F17.210 Nicotine dependence, cigarettes, uncomplicated; R01.1 Cardiac murmur, unspecified; D63.1 Anemia in chronic kidney disease; Z99.2 Dependence on renal dialysis; Z79.899 Other long term (current) drug therapy; Z79.82 Long term (current) use of aspirin; Z90.49 Acquired absence of other specified parts of digestive tract; Z98.49 Cataract extraction status, unspecified eye
CPT/HCPCS: 36415; 36416; 51701; 71045; 80048; 80053; 81003; 81015; 83036; 83605; 83880; 85025; 87040; 87086; 90935; 93970; 94760; 96374; 96375; 96376; 97139; G0257; G0378; J0744; J1644; J1815; J2543; J3370-JW; J7999

== ENCOUNTER 2022-07-15 19:37 | Inpatient (IN) | payer MEDICARE ==
[2022-07-15 20:24] LABS: #Eosinphils 0.1 thou/uL (0.0-0.7); #Lymphocytes 0.6 thou/uL (1.20-3.40); #Monocytes 0.7 thou/uL (0.11-0.59); #Neutrophils 9.4 thou/uL (1.40-6.50); %Basophils 0.1 % (0.0-1.0); %Eosinophils 1.4 % (0.0-10.0); %Monocytes 6.8 % (0.0-10.0); %Neutrophils 86.7 % (42.0-75.0); Hemoglobin 6.3 g/dL (14.0-18.0); Mean Corpuscular HGB CONC 31.8 g/dL (32.0-36.0); Mean Corpuscular Hemoglobin 33.8 pg (27.0-31.0); Mean Platelet Volume 10.2 fL (7.4-10.4); Platelet Count 157 10x3/uL (130-400); RBC Distribution Width 17.2 % (11.5-14.5); Red Blood Cell (RBC) Count 1.87 mill/uL (4.70-6.10); White Blood Cell (WBC) Count 10.9 10x3/uL (4.8-10.8)
[2022-07-15 20:46] LABS: ALT (SGPT) 24 U/L (8-55); AST (SGOT) 16 U/L (5-34); Alkaline Phosphatase 142 U/L (40-110); Anion Gap 23 mmol/L (10-20); BUN (Urea Nitrogen) 117 mg/dL (8.4-25.7); Bilirubin, Total 0.3 mg/dL (0.2-1.2); Calc. Creatinine Clearance 0 mL/min (70-130); Calcium 8.4 mg/dL (7.8-10.44); Carbon Dioxide 22 mmol/L (23-31); Chloride 96 mmol/L (98-107); Estimated GFR 7; Globulin 2.7 g/dL (2.4-3.5); Glucose 291 mg/dL (83-110); Potassium 5.6 mmol/L (3.5-5.1); Protein, Total 5.7 g/dL (5.8-8.1); Sodium 135 mmol/L (136-145)
[2022-07-15 21:00] LABS: Magnesium 1.8 mg/dL (1.6-2.6)
[2022-07-15] MEDS ORDERED: HYDROcodone/Acetaminophen 5/325 mg Tablet ONE (22:00)
[2022-07-15] MEDS ORDERED: Aspirin Chewable 81 MG TAB ONE (22:01)
[2022-07-15] MEDS ORDERED: Dextrose 50% Abboject 50 ML SYRINGE SLOW IVP PRN (22:29)
[2022-07-15] MEDS ORDERED: Dextrose 5% in Water 1,000 ML IV PRN (22:29)
[2022-07-15 22:48] LABS: CKMB 6.1 ng/mL (0-6.6)
[2022-07-16] MEDS ORDERED: Ondansetron ODT 4 MG TAB PO PRN (01:48)
[2022-07-16] MEDS ORDERED: Ondansetron PF 4 MG/2 ML Vial IVP PRN (01:48)
[2022-07-16] MEDS ORDERED: Pantoprazole 40 MG VIAL IVP SCH (02:15)
[2022-07-16] MEDS: Octreotide Acetate 1,250 MCG in Sodium Chloride 0.9% 250 ML 250 ML IVPB SCH (02:56)
[2022-07-16 03:28] LABS: Anion Gap 27 mmol/L (10-20); BUN (Urea Nitrogen) 124 mg/dL (8.4-25.7); Calc. Creatinine Clearance 11 mL/min (70-130); Carbon Dioxide 19 mmol/L (23-31); Chloride 97 mmol/L (98-107); Sodium 135 mmol/L (136-145)
[2022-07-16 03:29] LABS: ALT (SGPT) 55 U/L (8-55); AST (SGOT) 74 U/L (5-34); Albumin 3.1 g/dL (3.4-4.8); Alkaline Phosphatase 164 U/L (40-110); Bilirubin, Total 0.4 mg/dL (0.2-1.2); Calcium 8.8 mg/dL (7.8-10.44); Estimated GFR 7; Globulin 3.1 g/dL (2.4-3.5); Glucose 291 mg/dL (83-110); Magnesium 1.9 mg/dL (1.6-2.6); Protein, Total 6.2 g/dL (5.8-8.1)
[2022-07-16 03:30] LABS: Phosphorus 10.2 mg/dL (2.3-4.7); Troponin I 1.694 ng/mL (< 0.028)
[2022-07-16 03:40] LABS: Hemoglobin 6.2 g/dL (14.0-18.0); Mean Corpuscular HGB CONC 30.8 g/dL (32.0-36.0); Mean Corpuscular Hemoglobin 32.6 pg (27.0-31.0); RBC Distribution Width 17.4 % (11.5-14.5); Red Blood Cell (RBC) Count 1.91 mill/uL (4.70-6.10); White Blood Cell (WBC) Count 14.8 10x3/uL (4.8-10.8)
[2022-07-16 03:42] LABS: HBSAg Index 0.25 S/CO (0-0.99); Hep B Surf Ag Non-Reactive S/CO (NonReactive); Hep C IgG Ab Non-Reactive (NonReactive); Hep C Index 0.11 S/CO (0-0.79); Potassium 7.5 mmol/L (3.5-5.1)
[2022-07-16 04:03] LABS: Eosinophils 1 % (0-10); Lymphocytes 10 % (21-51); MDiff Complete? YES; Macrocytosis SLIGHT = 6-15 cells (100X) (0-5/hpf); Mean Platelet Volume 7.7 fL (7.4-10.4); Monocytes 5 % (0-10); Myelocyte 2 % (0-0); Neutrophil 82 % (42-75); Platelet Clumps MODERATE; Platelet Count 229 10x3/uL (130-400); Platelet Morphology Comment PLT clumps seen-ADEQ; Polychromasia SLIGHT = 2-3 cells (100X) (0-2/hpf)
[2022-07-16 07:07] LABS: Hep B Core Total Ab Reactive (NonReactive); Hep B Core Total Index 5.22 S/CO (0-0.79)
[2022-07-16 07:30] LABS: Hemoglobin 6.9 g/dL (14.0-18.0)
[2022-07-16 08:04] LABS: SARS-CoV-2 NAA Rapid Test Not Detected (NotDetected)
[2022-07-16] MEDS ORDERED: Heparin 5,000 UNITS/ML VIAL SC SCH (09:00)
[2022-07-16] MEDS ORDERED: Apixaban 2.5 MG TAB PO SCH (09:00)
[2022-07-16] MEDS: Midodrine HCl 5 MG TAB PO SCH ×3 (10:34→22:20)
[2022-07-16] MEDS: Pantoprazole 40 MG VIAL IVP SCH ×2 (10:34→22:20)
[2022-07-16] MEDS: HumaLOG 300 UNITS/3 ML VIAL SC PRN (18:03)
[2022-07-16] MEDS ORDERED: EPOETIN ALFA-EPBX (ESRD) 10,000 UNIT/ML VIAL SC SCH (20:00)
[2022-07-17] MEDS: Octreotide Acetate 1,250 MCG in Sodium Chloride 0.9% 250 ML 250 ML IVPB SCH (05:48)
[2022-07-17] MEDS: Sevelamer Carbonate 800 MG TAB PO SCH ×3 (09:10→18:02)
[2022-07-17] MEDS: Midodrine HCl 5 MG TAB PO SCH ×3 (09:10→20:37)
[2022-07-17] MEDS: Pantoprazole 40 MG VIAL IVP SCH ×2 (09:11→20:37)
[2022-07-17 10:52] LABS: Band 2 % (5-11); Hemoglobin 7.7 g/dL (14.0-18.0); Lymphocytes 10 % (21-51); MDiff Complete? YES; Mean Corpuscular HGB CONC 30.6 g/dL (32.0-36.0); Mean Corpuscular Hemoglobin 32.4 pg (27.0-31.0); Mean Platelet Volume 10.7 fL (7.4-10.4); Monocytes 5 % (0-10); Neutrophil 83 % (42-75); Platelet Clumps MARKED; Platelet Morphology Comment PLT clumps seen-ADEQ; Polychromasia MODERATE = 3-4 cells (100X) (0-2/hpf); RBC Distribution Width 17.4 % (11.5-14.5); Red Blood Cell (RBC) Count 2.38 mill/uL (4.70-6.10); White Blood Cell (WBC) Count 20.1 10x3/uL (4.8-10.8)
[2022-07-17 11:00] LABS: ALT (SGPT) 636 U/L (8-55); AST (SGOT) 530 U/L (5-34); Albumin 3.1 g/dL (3.4-4.8); Alkaline Phosphatase 134 U/L (40-110); Anion Gap 25 mmol/L (10-20); BUN (Urea Nitrogen) 79 mg/dL (8.4-25.7); Bilirubin, Total 0.6 mg/dL (0.2-1.2); Calc. Creatinine Clearance 13 mL/min (70-130); Calcium 9.4 mg/dL (7.8-10.44); Carbon Dioxide 22 mmol/L (23-31); Chloride 98 mmol/L (98-107); Estimated GFR 9; Globulin 3.3 g/dL (2.4-3.5); Glucose 166 mg/dL (83-110); Protein, Total 6.4 g/dL (5.8-8.1); Sodium 138 mmol/L (136-145)
[2022-07-17 11:16] LABS: Potassium 6.6 mmol/L (3.5-5.1)
[2022-07-17 11:25] LABS: Troponin I 2.302 ng/mL (< 0.028)
[2022-07-17] MEDS ORDERED: LOKELMA 5 GM PACKET PO SCH (14:15)
[2022-07-17] MEDS ORDERED: Heparin 10,000 UNITS/ 10 ML VIAL ONE (14:46)
[2022-07-17] MEDS: Doxycycline 100 MG CAP PO SCH (21:30)
[2022-07-17] MEDS: Zinc Oxide 20% Oint 30 GM TUBE TOP SCH (21:30)
[2022-07-18 06:58] LABS: Hemoglobin 7.6 g/dL (14.0-18.0); Mean Corpuscular HGB CONC 32.5 g/dL (32.0-36.0); Mean Corpuscular Hemoglobin 34.5 pg (27.0-31.0); Red Blood Cell (RBC) Count 2.19 mill/uL (4.70-6.10); White Blood Cell (WBC) Count 16.4 10x3/uL (4.8-10.8)
[2022-07-18 07:11] LABS: Anion Gap 21 mmol/L (10-20); BUN (Urea Nitrogen) 53 mg/dL (8.4-25.7); Calc. Creatinine Clearance 17 mL/min (70-130); Calcium 8.8 mg/dL (7.8-10.44); Carbon Dioxide 25 mmol/L (23-31); Chloride 97 mmol/L (98-107); Estimated GFR 13; Glucose 128 mg/dL (83-110); Potassium 5.5 mmol/L (3.5-5.1); Sodium 137 mmol/L (136-145)
[2022-07-18] MEDS: Doxycycline 100 MG CAP PO SCH ×3 (09:29→21:19)
[2022-07-18] MEDS: Midodrine HCl 5 MG TAB PO SCH ×3 (09:29→21:19)
[2022-07-18] MEDS: Sevelamer Carbonate 800 MG TAB PO SCH ×3 (09:29→18:11)
[2022-07-18] MEDS: Pantoprazole 40 MG VIAL IVP SCH ×3 (09:30→21:29)
[2022-07-18] MEDS: Zinc Oxide 20% Oint 30 GM TUBE TOP SCH ×3 (09:30→21:20)
[2022-07-18 10:41] LABS: Anisocytosis SLIGHT = 6-15 cells (100X) (0-5/hpf); Band 2 % (5-11); Lymphocytes 3 % (21-51); MDiff Complete? YES; Macrocytosis SLIGHT = 6-15 cells (100X) (0-5/hpf); Mean Platelet Volume 10.7 fL (7.4-10.4); Monocytes 6 % (0-10); Neutrophil 89 % (42-75); Nucleated RBC 1 % (0); Ovalocytes SLIGHT = 2-5 cells (100X) (0-1/hpf); Platelet Clumps MODERATE; Platelet Morphology Comment PLT clumps seen-ADEQ; Polychromasia MODERATE = 3-4 cells (100X) (0-2/hpf); RBC Distribution Width 17.2 % (11.5-14.5); Target Cells SLIGHT = 2-5 cells (100X) (0-1/hpf); Tear Drops SLIGHT = 2-5 cells (100X) (0-1/hpf)
[2022-07-19] MEDS: Zinc Oxide 20% Oint 30 GM TUBE TOP SCH ×2 (09:07→15:49)
[2022-07-19] MEDS: Pantoprazole 40 MG VIAL IVP SCH (09:07)
[2022-07-19] MEDS: Midodrine HCl 5 MG TAB PO SCH ×2 (09:07→15:56)
[2022-07-19] MEDS: Sevelamer Carbonate 800 MG TAB PO SCH ×3 (09:07→18:13)
[2022-07-19] MEDS: Doxycycline 100 MG CAP PO SCH (09:07)
[2022-07-20] MEDS: Doxycycline 100 MG CAP PO SCH ×3 (02:19→21:46)
[2022-07-20] MEDS: Midodrine HCl 5 MG TAB PO SCH ×4 (02:19→21:46)
[2022-07-20] MEDS: Pantoprazole 40 MG VIAL IVP SCH ×2 (02:19→09:02)
[2022-07-20] MEDS: Zinc Oxide 20% Oint 30 GM TUBE TOP SCH ×4 (02:19→21:46)
[2022-07-20] MEDS: Sevelamer Carbonate 800 MG TAB PO SCH ×3 (09:01→17:09)
[2022-07-20 12:16] LABS: Hemoglobin 8.4 g/dL (14.0-18.0); Mean Corpuscular HGB CONC 31.1 g/dL (32.0-36.0); Mean Corpuscular Hemoglobin 33.8 pg (27.0-31.0); Mean Platelet Volume 9.4 fL (7.4-10.4); Platelet Count 129 10x3/uL (130-400); RBC Distribution Width 19.5 % (11.5-14.5); Red Blood Cell (RBC) Count 2.48 mill/uL (4.70-6.10)
[2022-07-20 12:30] LABS: Anisocytosis SLIGHT = 6-15 cells (100X) (0-5/hpf); Band 1 % (5-11); Eosinophils 2 % (0-10); Lymphocytes 1 % (21-51); MDiff Complete? YES; Macrocytosis SLIGHT = 6-15 cells (100X) (0-5/hpf); Monocytes 3 % (0-10); Myelocyte 1 % (0-0); Neutrophil 92 % (42-75); Nucleated RBC 5 % (0); Ovalocytes SLIGHT = 2-5 cells (100X) (0-1/hpf); Platelet Clumps MODERATE; Platelet Morphology Comment PLT clumps seen-ADEQ; Polychromasia MODERATE = 3-4 cells (100X) (0-2/hpf); Schistocytes SLIGHT = 2-5 cells (100X) (0-1/hpf); White Blood Cell (WBC) Count 11.6 10x3/uL (4.8-10.8)
[2022-07-20 12:40] LABS: Anion Gap 16 mmol/L (10-20); BUN (Urea Nitrogen) 46 mg/dL (8.4-25.7); Calc. Creatinine Clearance 15 mL/min (70-130); Calcium 8.3 mg/dL (7.8-10.44); Carbon Dioxide 27 mmol/L (23-31); Chloride 98 mmol/L (98-107); Estimated GFR 11; Glucose 161 mg/dL (83-110); Potassium 4.7 mmol/L (3.5-5.1); Sodium 136 mmol/L (136-145)
[2022-07-20] MEDS ORDERED: Ketamine 50 MG/ML (10ML VIAL) ONE (13:16)
[2022-07-20] MEDS ORDERED: Lidocaine 1% PF 5 ML VIAL ONE (13:26)
[2022-07-20] MEDS ORDERED: PROPOFOL 200 MG/20 ML VIAL ONE (13:26)
[2022-07-20 16:53] VITALS: BMI 28.3
[2022-07-20] MEDS: HumaLOG 300 UNITS/3 ML VIAL SC PRN (18:29)
[2022-07-21] MEDS: Midodrine HCl 5 MG TAB PO SCH ×2 (09:15→09:23)
[2022-07-21] MEDS: Sevelamer Carbonate 800 MG TAB PO SCH ×3 (09:16→17:17)
[2022-07-21] MEDS: Doxycycline 100 MG CAP PO SCH (09:16)
[2022-07-21] MEDS: Zinc Oxide 20% Oint 30 GM TUBE TOP SCH ×2 (09:17→15:36)
[2022-07-21] MEDS ORDERED: Midodrine HCl 5 MG TAB PO PRN (09:22)
[2022-07-21] MEDS ORDERED: Heparin 10,000 UNITS/ 10 ML VIAL ONE (11:53)
[2022-07-21 14:03] VITALS: BP 157/67; TEMP 97.8
== END 2022-07-21 18:49 | disposition home health service (06) | DRG 640 ==
LOC: ERS 19:37 → ERHOLD 22:18 → 2NO 23:31
PROVIDERS: ADMIT Internal Medicine; ATTEND Internal Medicine
PROC: 5A1D70Z Performance of Urinary Filtration, Intermittent, Less than 6 Hours Per Day (ICD-10-PCS; principal; 2022-07-16)
PROC: 30233N1 Transfusion of Nonautologous Red Blood Cells into Peripheral Vein, Percutaneous Approach (ICD-10-PCS; 2022-07-16)
PROC: 0DB78ZX Excision of Stomach, Pylorus, Via Natural or Artificial Opening Endoscopic, Diagnostic (ICD-10-PCS; 2022-07-20)
DX: E87.70 Fluid overload, unspecified (principal); I21.A1 Myocardial infarction type 2; N18.6 End stage renal disease; K29.61 Other gastritis with bleeding; I12.0 Hypertensive chronic kidney disease with stage 5 chronic kidney disease or end stage renal disease; D62 Acute posthemorrhagic anemia; E87.5 Hyperkalemia; Z66 Do not resuscitate; Z20.822 Contact with and (suspected) exposure to COVID-19; I25.10 Atherosclerotic heart disease of native coronary artery without angina pectoris; E11.22 Type 2 diabetes mellitus with diabetic chronic kidney disease; F17.210 Nicotine dependence, cigarettes, uncomplicated; I95.9 Hypotension, unspecified; D63.1 Anemia in chronic kidney disease; Z99.2 Dependence on renal dialysis; Z91.15 Patient's noncompliance with renal dialysis; Z86.718 Personal history of other venous thrombosis and embolism; Z79.82 Long term (current) use of aspirin; Z90.49 Acquired absence of other specified parts of digestive tract; Z79.01 Long term (current) use of anticoagulants; Z79.4 Long term (current) use of insulin
CPT/HCPCS: 36415; 36416; 36430; 71045; 80048; 80053; 82553; 83735; 83880; 84100; 84484; 85025; 86704; 86850; 86900; 86901; 88305; 88342; 90935; 93005; C9113; G0257; J1644; J1815; J2354; J2704; J7050; P9016